=== PATIENT | male | born 1975 | race Hispanic/Latino ===

== ENCOUNTER 2018-01-30 18:05 | Inpatient (IN) | payer BC ==
[~2018-01-30] VITALS: Ht 180.3 cm; Wt 105.7 kg
[~2018-01-30 18:05] MED LIST: METFORMIN HCL500 MG PO
[2018-01-30 18:36] LABS: BASOPHILS % 0.3 % (0.0-1.0); EOSINOPHILS % 0.3 % (0.0-6.0); HEMATOCRIT 24.9 % (38.2-49.6); HEMOGLOBIN 8.8 g/dL (14.0-18.0); LYMPHOCYTES # (AUTO) 1.4 (1.0-3.2); LYMPHOCYTES % 18.7 % (18.0-39.1); MEAN CORPUSCULAR HEMOGLOBIN 30.7 pg (28-32); MEAN CORPUSCULAR HGB CONC 35.3 g/dL (31-35); MEAN CORPUSCULAR VOLUME 86.8 fL (81-99); MONOCYTES # (AUTO) 0.9 (0.2-0.8); NEUTROPHILS # (AUTO) 5.2 (2.1-6.9); NEUTROPHILS % 68.2 % (38.7-80.0); PLATELET COUNT 213 x10e3/uL (140-360); RED BLOOD COUNT 2.87 x10e6/uL (4.3-5.7); RED CELL DISTRIBUTION WIDTH 11.9 % (11.7-14.4)
[2018-01-30 18:54] LABS: ALBUMIN 3.1 g/dL (3.5-5.0); ALBUMIN/GLOBULIN RATIO 0.9 (0.8-2.0); ANION GAP 14.8 mmol/L (8-16); CALCIUM 8.9 mg/dL (8.4-10.2); CREATININE, SERUM 2.65 mg/dL (0.72-1.25); POTASSIUM 4.8 mmol/L (3.5-5.1)
--- NOTE | 2018-01-30 19:21 | Diagnostic Imaging Report ---
Foot complete CPT code: 78441 Indication: First and second digit bleeding, redness, swelling Technique: A.P., oblique and lateral views of the left foot obtained. Comparison: X-rays 05/16/2017 Findings: Calcaneus is intact and normal in morphology. The midfoot is intact with mild degenerative changes. Partial amputation of the fifth digit is stable at the head of the metatarsal. The proximal and distal phalanges of the fifth digit are present and are intact. A fracture of the base of the fifth metatarsal has healed with pseudoarthrosis. Digits 1 through 4 are intact. No erosions or periosteal new bone formation. Diffuse vascular calcifications are stable. IMPRESSION: 1. No radiographic evidence of osteomyelitis. If there is strong clinical concern for osteomyelitis, recommend further evaluation with MRI. 2. Stable postoperative changes of the fifth digit. 3. Healed fracture at the base of the fifth metatarsal with pseudoarthrosis. Signed by: Dr. Ike García MD on 01/30/2018 7:18 PM
[2018-01-30] MEDS ORDERED: DEXTROSE 50% SYRINGE 50 ML IV PRN (20:15)
[2018-01-30] MEDS ORDERED: ONDANSETRON HCL INJ 2 MG/ML VIAL IV PRN (20:15)
[2018-01-30] MEDS ORDERED: MORPHINE SULFATE 2 MG/ML SYR IV PRN (20:15)
[2018-01-30] MEDS: PIPERACILLIN/TAZO 2.25 GM 50 ML IV SCH (20:44)
[2018-01-30] MEDS: SODIUM CHLORIDE 0.9% 1000ML 1,000 ML IV SCH (20:44)
[2018-01-30] MEDS: SILVER SULFADIAZINE 50GM CREAM TOP SCH (20:45)
[2018-01-30] MEDS ORDERED: SILVER SULFADIAZINE 400GM CREAM ONE (20:48)
[2018-01-30 20:59] VITALS: BP 179/79
[2018-01-30 21:00] VITALS: BP 179/79
[2018-01-30] MEDS: INSULIN REGULAR, HUMAN 100 UNIT/1 ML 3ML VIAL SQ SCH (21:00)
[2018-01-30] MEDS: VANCOMYCIN 1GM/NS 250 ML 250 ML IV SCH (21:21)
[2018-01-31] VITALS: BP 162/81
[2018-01-31] MEDS: PIPERACILLIN/TAZO 2.25 GM 50 ML IV SCH ×5 (00:30→23:24)
[2018-01-31 04:00] VITALS: BP 149/82
[2018-01-31] MEDS: SODIUM CHLORIDE 0.9% 1000ML 1,000 ML IV SCH ×2 (05:08→12:12)
[2018-01-31 06:59] LABS: BASOPHILS % 0.4 % (0.0-1.0); EOSINOPHILS # (AUTO) 0.1 (0.0-0.4); EOSINOPHILS % 1.3 % (0.0-6.0); HEMOGLOBIN 7.3 g/dL (14.0-18.0); LYMPHOCYTES # (AUTO) 1.2 (1.0-3.2); LYMPHOCYTES % 20.8 % (18.0-39.1); MEAN CORPUSCULAR HEMOGLOBIN 30.9 pg (28-32); MEAN CORPUSCULAR HGB CONC 35.1 g/dL (31-35); MEAN CORPUSCULAR VOLUME 88.1 fL (81-99); MONOCYTES # (AUTO) 0.9 (0.2-0.8); MONOCYTES % 15.4 % (4.4-11.3); NEUTROPHILS # (AUTO) 3.4 (2.1-6.9); NEUTROPHILS % 61.6 % (38.7-80.0); PLATELET COUNT 178 x10e3/uL (140-360); RED BLOOD COUNT 2.36 x10e6/uL (4.3-5.7); RED CELL DISTRIBUTION WIDTH 11.9 % (11.7-14.4)
[2018-01-31 07:12] LABS: HEMATOCRIT 20.8 % (38.2-49.6)
[2018-01-31] MEDS: INSULIN REGULAR, HUMAN 100 UNIT/1 ML 3ML VIAL SQ SCH ×4 (07:30→21:00)
[2018-01-31 07:32] LABS: ALBUMIN 2.5 g/dL (3.5-5.0); ANION GAP 9.7 mmol/L (8-16); CALCIUM 8.3 mg/dL (8.4-10.2); CREATININE, SERUM 2.67 mg/dL (0.72-1.25); POTASSIUM 4.7 mmol/L (3.5-5.1)
[2018-01-31] MEDS ORDERED: SODIUM CHLORIDE 0.9% 250ML 250 ML IV ONE (08:00)
[2018-01-31 08:44] VITALS: BP 182/89
[2018-01-31] MEDS: SILVER SULFADIAZINE 50GM CREAM TOP SCH (09:00)
[2018-01-31] MEDS ORDERED: LISINOPRIL10 MG PO (11:37)
[2018-01-31] MEDS: LISINOPRIL 10 MG TAB PO SCH (11:55)
--- NOTE | 2018-01-31 13:52 | Consultation ---
DATE OF CONSULTATION: January 31, 2018 The patient was seen at bedside. He is here because he was at work, and he put his foot in an area of exposure to the sun. He said he did not notice that day; but when he went home at night, he noticed there was a blister on his foot. He developed a large blister to the whole dorsal aspect of the foot, encompassing digits 1 through 5. He started getting worried because he is diabetic and has a history of diabetic foot ulcers, so he came to the emergency room right away where he was admitted. PAST MEDICAL HISTORY: Diabetes mellitus, hypertension, history of anemia. PAST SURGICAL HISTORY: Left foot surgery. FAMILY HISTORY: Diabetes mellitus, hypertension. SOCIAL HISTORY: He denies any alcohol, tobacco or illicit drug use. ALLERGIES: NO KNOWN ALLERGIES. MEDICATIONS: Please see MAR. REVIEW OF SYSTEMS: Noncontributory, except for a full-thickness ulcer that began as a burn to the left aspect of the foot that encompasses digits 1, 2, 3, 4, and 5, and it extends down to the level of the mid-foot. LOWER EXTREMITY PHYSICAL EXAMINATION: Pedal pulses are palpable. Capillary refill intact at 5 seconds. There is pedal hair growth on the feet. Intrinsic minus type of foot. Protective threshold is absent. The left foot now has a full-thickness ulcer that began as a blister. The bulla was deroofed today with a #15 blade, and nonviable tissue was removed. It was now granular. It encompasses digits 1 through 5. There are localized erythema and edema noted. No streaking erythema or ascending lymphangitis. X-ray is negative for osteomyelitis. White blood count is trending down. ASSESSMENT 1. Diabetic foot ulcer that began as a burn secondary to diabetic neuropathy. 2. Small vessel peripheral vascular disease. PLAN: At this point, utilizing a #15 blade, all nonviable tissue was removed. The bulla was fully deroofed. It had already begun to the digits. The erythema and edema were localized. This did not seem to be infected at this point. I am going to recommend Xeroform to the lower extremity daily. He will offload with the use of a postop shoe. He is stable. Once he is medically stable and he is discharged home, he can follow up with me in the office, and he can probably follow up after that at the wound care center. Thank you for letting me participate in the care of this patient. Job#: [id number]
[2018-01-31] MEDS ORDERED: FLUCONAZOLE 200 MG/100 ML 100 ML IV SCH (15:00)
--- NOTE | 2018-01-31 15:36 | Consultation ---
DATE OF CONSULTATION: INFECTIOUS DISEASE CONSULTATION REASON FOR CONSULTATION: Burn in the foot. HISTORY OF PRESENT ILLNESS: This is a patient who is a very well known to me 43-year-old gentleman with history of diabetes mellitus, history of neuropathy, who comes in after he had his feet up on his car, but he has neuropathy and apparently he had burned his feet without really feeling it. The patient took his socks off and he peeled his skin, which affected all his distal third of his foot. His toes were swollen. There is erythema and edema. Patient came here. He was admitted. PAST MEDICAL HISTORY: Diabetes mellitus, hypertension, neuropathy. PAST SURGICAL HISTORY: Left foot surgery. He also has history of osteomyelitis of his foot before. ALLERGIES: NKA. SOCIAL HISTORY: There is no smoking, drug abuse, alcohol abuse. FAMILY HISTORY: Otherwise diabetes mellitus. REVIEW OF SYSTEMS: HEENT: Negative. PULMONARY: Negative. CARDIAC: Negative. : Negative. SKIN: There is no rash anywhere otherwise. PHYSICAL EXAMINATION: GENERAL: He is alert, oriented, does not seem to be in acute distress. VITALS: Stable, currently afebrile. HEENT: He does not appear icteric. NECK: Supple. CHEST: Clear. HEART: S1/S2. No S3, no S4. No murmur. ABDOMEN: Soft. Bowel sounds present. No tenderness. EXTREMITIES: No edema. The right foot there is erythema, there is edema. He underwent debridement earlier. IMPRESSION: Cellulitis in a patient who sustained a second degree burn to his right foot. Concerned about infection. There is significant edema. There is also concern about fungal infection. He is currently on vancomycin and Zosyn. I would suggest to switch him to clindamycin 600 q.8. Will follow clinically. Continue with local care. Job#: [id number] EV
[2018-01-31 20:32] VITALS: BP 189/87
[2018-01-31] MEDS ORDERED: CLONIDINE HCL 0.1 MG TAB PO PRN (21:00)
[2018-01-31] MEDS: VANCOMYCIN 1GM/NS 250 ML 250 ML IV SCH (21:15)
[2018-02-01 00:08] VITALS: BP 176/87
[2018-02-01 04:00] VITALS: BP 166/84
[2018-02-01] MEDS: PIPERACILLIN/TAZO 2.25 GM 50 ML IV SCH (05:37)
[2018-02-01 07:00] VITALS: BP 177/86
[2018-02-01 07:13] LABS: BASOPHILS % 0.5 % (0.0-1.0); EOSINOPHILS # (AUTO) 0.1 (0.0-0.4); EOSINOPHILS % 1.8 % (0.0-6.0); HEMATOCRIT 23.3 % (38.2-49.6); HEMOGLOBIN 8.3 g/dL (14.0-18.0); LYMPHOCYTES # (AUTO) 1.2 (1.0-3.2); LYMPHOCYTES % 19.7 % (18.0-39.1); MEAN CORPUSCULAR HEMOGLOBIN 31.3 pg (28-32); MEAN CORPUSCULAR HGB CONC 35.6 g/dL (31-35); MEAN CORPUSCULAR VOLUME 87.9 fL (81-99); MONOCYTES % 15.8 % (4.4-11.3); NEUTROPHILS # (AUTO) 3.7 (2.1-6.9); NEUTROPHILS % 61.5 % (38.7-80.0); PLATELET COUNT 180 x10e3/uL (140-360); RED BLOOD COUNT 2.65 x10e6/uL (4.3-5.7)
[2018-02-01 07:41] LABS: ALBUMIN 2.5 g/dL (3.5-5.0); ALBUMIN/GLOBULIN RATIO 0.9 (0.8-2.0); ANION GAP 11.7 mmol/L (8-16); CALCIUM 8.6 mg/dL (8.4-10.2); CREATININE, SERUM 2.66 mg/dL (0.72-1.25); POTASSIUM 4.7 mmol/L (3.5-5.1)
[2018-02-01 07:43] VITALS: BP 177/86
[2018-02-01] MEDS: LISINOPRIL 10 MG TAB PO SCH (08:20)
[2018-02-01] MEDS: INSULIN REGULAR, HUMAN 100 UNIT/1 ML 3ML VIAL SQ SCH (08:23)
[2018-02-01] MEDS ORDERED: CLEOCIN HCL150 MG PO (09:21)
== END 2018-02-01 11:05 | disposition home or self-care (01) | DRG 603 ==
LOC: ER 18:05 → ERHOLD 20:49 → MED/SURG2 20:52
PROVIDERS: ADMIT Internal Medicine; ATTEND Internal Medicine
PROC: 0HDMXZZ Extraction of Right Foot Skin, External Approach (ICD-10-PCS; principal; 2018-01-31)
DX: L03.116 Cellulitis of left lower limb (principal); E11.22 Type 2 diabetes mellitus with diabetic chronic kidney disease; I12.9 Hypertensive chronic kidney disease with stage 1 through stage 4 chronic kidney disease, or unspecified chronic kidney disease; E78.5 Hyperlipidemia, unspecified; D64.9 Anemia, unspecified; E11.42 Type 2 diabetes mellitus with diabetic polyneuropathy; E11.621 Type 2 diabetes mellitus with foot ulcer; L55.1 Sunburn of second degree; N18.3 Chronic kidney disease, stage 3 (moderate)
CPT/HCPCS: 36415; 36430; 80053; 82948; 83605; 85025; 86850; 86900; 86920; 87040; 99284; J1450; J2543; J3370; J7030; J7050; P9016

== ENCOUNTER → 2018-02-08 | Outpatient (CLI) | payer BC ==
[~2018-02-08] MED LIST changes: +CLEOCIN HCL150 MG PO; +LISINOPRIL10 MG PO; +MINERAL OIL/PETROLAT/GLYCERI 6OZ BTL ONE
== END ==
LOC: EDSEX → WCC 12:44
PROVIDERS: ATTEND Podiatrist Foot & Ankle Surgery
DX: E11.621 Type 2 diabetes mellitus with foot ulcer (principal); M86.172 Other acute osteomyelitis, left ankle and foot; L97.529 Non-pressure chronic ulcer of other part of left foot with unspecified severity; I10 Essential (primary) hypertension; Z01.810 Encounter for preprocedural cardiovascular examination; Z01.811 Encounter for preprocedural respiratory examination
CPT/HCPCS: 36415; 82948

== ENCOUNTER → 2018-02-10 | Outpatient (CLI) | payer BC ==
[~2018-02-10] MED LIST changes: -MINERAL OIL/PETROLAT/GLYCERI 6OZ BTL ONE
== END ==
LOC: EDSEX → WCC 12:33
PROVIDERS: ATTEND Internal Medicine Infectious Disease
DX: E11.621 Type 2 diabetes mellitus with foot ulcer (principal); M86.172 Other acute osteomyelitis, left ankle and foot; L97.529 Non-pressure chronic ulcer of other part of left foot with unspecified severity; I10 Essential (primary) hypertension; Z01.810 Encounter for preprocedural cardiovascular examination; Z01.811 Encounter for preprocedural respiratory examination
CPT/HCPCS: 83036

== ENCOUNTER → 2018-02-13 | Outpatient (CLI) | payer BC ==
--- NOTE | 2018-02-13 16:03 | Diagnostic Imaging Report ---
PROCEDURE: Frontal and lateral views of the chest. COMPARISON: 08/27/16 INDICATIONS: PRE-OPERATIVE CHEST X-RAY FOR HYPERBARIC OXYGEN TREATMENTS FINDINGS: Lines/tubes: None. Lungs: The lungs are well inflated and clear. There is no evidence of pneumonia or pulmonary edema. Pleura: There is no pleural effusion or pneumothorax. Heart and mediastinum: The heart and the mediastinum are normal. Bones: No acute bony abnormality. IMPRESSION: 1. No acute cardiopulmonary disease. Dictated by: Natan Garcia M.D. on 02/13/2018 at 16:07 Electronically approved by: Natan Garcia M.D. on 02/13/2018 at 16:07
== END ==
LOC: WCC 12:55 → EDSEX 12:55
PROVIDERS: ATTEND Internal Medicine Infectious Disease
DX: E11.621 Type 2 diabetes mellitus with foot ulcer (principal); M86.172 Other acute osteomyelitis, left ankle and foot; L97.529 Non-pressure chronic ulcer of other part of left foot with unspecified severity; I10 Essential (primary) hypertension; Z01.810 Encounter for preprocedural cardiovascular examination; Z01.811 Encounter for preprocedural respiratory examination
CPT/HCPCS: 71046; 93005

== ENCOUNTER → 2018-02-14 | Outpatient (CLI) | payer BC | LOC: WCC 14:15 | PROVIDERS: ATTEND Podiatrist Foot & Ankle Surgery | DX: E11.621 Type 2 diabetes mellitus with foot ulcer (principal); M86.172 Other acute osteomyelitis, left ankle and foot; L97.529 Non-pressure chronic ulcer of other part of left foot with unspecified severity; I10 Essential (primary) hypertension; Z01.810 Encounter for preprocedural cardiovascular examination; Z01.811 Encounter for preprocedural respiratory examination ==

== ENCOUNTER → 2018-02-15 | Outpatient (CLI) | payer BC | LOC: WCC 14:37 | PROVIDERS: ATTEND Podiatrist Foot & Ankle Surgery | DX: E11.621 Type 2 diabetes mellitus with foot ulcer (principal); M86.172 Other acute osteomyelitis, left ankle and foot; L97.529 Non-pressure chronic ulcer of other part of left foot with unspecified severity; Z01.810 Encounter for preprocedural cardiovascular examination; Z01.811 Encounter for preprocedural respiratory examination ==

== ENCOUNTER → 2018-02-17 | Outpatient (CLI) | payer BC | LOC: EDSEX → WCC 15:15 | PROVIDERS: ATTEND Podiatrist Foot & Ankle Surgery | DX: E11.621 Type 2 diabetes mellitus with foot ulcer (principal); M86.172 Other acute osteomyelitis, left ankle and foot; L97.529 Non-pressure chronic ulcer of other part of left foot with unspecified severity; I10 Essential (primary) hypertension; Z01.810 Encounter for preprocedural cardiovascular examination; Z01.811 Encounter for preprocedural respiratory examination ==

== ENCOUNTER → 2018-02-20 | Outpatient (CLI) | payer BC | LOC: WCC 10:22 | PROVIDERS: ATTEND Podiatrist Foot & Ankle Surgery | DX: E11.621 Type 2 diabetes mellitus with foot ulcer (principal); M86.172 Other acute osteomyelitis, left ankle and foot; L97.529 Non-pressure chronic ulcer of other part of left foot with unspecified severity; I10 Essential (primary) hypertension; Z01.810 Encounter for preprocedural cardiovascular examination; Z01.811 Encounter for preprocedural respiratory examination ==

== ENCOUNTER → 2018-02-22 | Outpatient (CLI) | payer BC | LOC: EDSEX → WCC 15:05 | PROVIDERS: ATTEND Podiatrist Foot & Ankle Surgery | DX: E11.621 Type 2 diabetes mellitus with foot ulcer (principal); M86.172 Other acute osteomyelitis, left ankle and foot; L97.529 Non-pressure chronic ulcer of other part of left foot with unspecified severity; I10 Essential (primary) hypertension; Z01.810 Encounter for preprocedural cardiovascular examination; Z01.811 Encounter for preprocedural respiratory examination ==

== ENCOUNTER → 2018-02-23 | Outpatient (CLI) | payer BC | LOC: WCC 10:39 | PROVIDERS: ATTEND Family Medicine Adult Medicine | DX: E11.621 Type 2 diabetes mellitus with foot ulcer (principal); M86.172 Other acute osteomyelitis, left ankle and foot; L97.529 Non-pressure chronic ulcer of other part of left foot with unspecified severity; I10 Essential (primary) hypertension; Z01.810 Encounter for preprocedural cardiovascular examination; Z01.811 Encounter for preprocedural respiratory examination | CPT/HCPCS: 97602; G0277 ==

== ENCOUNTER → 2018-02-24 | Outpatient (CLI) | payer BC | LOC: EDSEX → WCC 13:08 | PROVIDERS: ATTEND Podiatrist Foot & Ankle Surgery | DX: E11.621 Type 2 diabetes mellitus with foot ulcer (principal); M86.172 Other acute osteomyelitis, left ankle and foot; L97.529 Non-pressure chronic ulcer of other part of left foot with unspecified severity; I10 Essential (primary) hypertension; Z01.810 Encounter for preprocedural cardiovascular examination; Z01.811 Encounter for preprocedural respiratory examination ==

== ENCOUNTER → 2018-02-27 | Outpatient (CLI) | payer BC | LOC: EDSEX → WCC 11:52 | PROVIDERS: ATTEND Podiatrist Foot & Ankle Surgery | DX: E11.621 Type 2 diabetes mellitus with foot ulcer (principal); M86.172 Other acute osteomyelitis, left ankle and foot; L97.529 Non-pressure chronic ulcer of other part of left foot with unspecified severity; I10 Essential (primary) hypertension; Z01.810 Encounter for preprocedural cardiovascular examination; Z01.811 Encounter for preprocedural respiratory examination | CPT/HCPCS: 97602; G0277 ==

== ENCOUNTER → 2018-02-28 | Outpatient (CLI) | payer BC | LOC: WCC 10:05 | PROVIDERS: ATTEND Podiatrist Foot & Ankle Surgery | DX: E11.621 Type 2 diabetes mellitus with foot ulcer (principal); M86.172 Other acute osteomyelitis, left ankle and foot; L97.529 Non-pressure chronic ulcer of other part of left foot with unspecified severity; I10 Essential (primary) hypertension; Z01.810 Encounter for preprocedural cardiovascular examination; Z01.811 Encounter for preprocedural respiratory examination | CPT/HCPCS: 97602; G0277 ==

== ENCOUNTER → 2018-03-01 | Outpatient (CLI) | payer BC ==
[~2018-03-01] MED LIST changes: +COLLAGENASE OINTMENT 30 GM TUBE ONE
== END ==
LOC: EDSEX → WCC 15:25
PROVIDERS: ATTEND Podiatrist Foot & Ankle Surgery
DX: E11.621 Type 2 diabetes mellitus with foot ulcer (principal); M86.172 Other acute osteomyelitis, left ankle and foot; L97.529 Non-pressure chronic ulcer of other part of left foot with unspecified severity; I10 Essential (primary) hypertension; Z01.810 Encounter for preprocedural cardiovascular examination; Z01.811 Encounter for preprocedural respiratory examination
CPT/HCPCS: 11042; 11045; 36415; 82948; G0277

== ENCOUNTER → 2018-03-02 | Outpatient (CLI) | payer BC ==
[~2018-03-02] MED LIST changes: -COLLAGENASE OINTMENT 30 GM TUBE ONE
== END ==
LOC: EDSEX → WCC 14:01
PROVIDERS: ATTEND Podiatrist Foot & Ankle Surgery
DX: E11.621 Type 2 diabetes mellitus with foot ulcer (principal); L97.529 Non-pressure chronic ulcer of other part of left foot with unspecified severity; M86.172 Other acute osteomyelitis, left ankle and foot; I10 Essential (primary) hypertension; Z01.810 Encounter for preprocedural cardiovascular examination; Z01.811 Encounter for preprocedural respiratory examination

== ENCOUNTER → 2018-03-03 | Outpatient (CLI) | payer BC | LOC: EDSEX → WCC 11:53 | PROVIDERS: ATTEND Podiatrist Foot & Ankle Surgery | DX: E11.621 Type 2 diabetes mellitus with foot ulcer (principal); M86.172 Other acute osteomyelitis, left ankle and foot; L97.529 Non-pressure chronic ulcer of other part of left foot with unspecified severity; I10 Essential (primary) hypertension; Z01.810 Encounter for preprocedural cardiovascular examination; Z01.811 Encounter for preprocedural respiratory examination | CPT/HCPCS: 97602; G0277 ==

== ENCOUNTER → 2018-03-06 | Outpatient (CLI) | payer BC | LOC: EDSEX → WCC 14:41 | PROVIDERS: ATTEND Podiatrist Foot & Ankle Surgery | DX: E11.621 Type 2 diabetes mellitus with foot ulcer (principal); E11.65 Type 2 diabetes mellitus with hyperglycemia; E11.40 Type 2 diabetes mellitus with diabetic neuropathy, unspecified; L97.511 Non-pressure chronic ulcer of other part of right foot limited to breakdown of skin; S90.421A Blister (nonthermal), right great toe, initial encounter; R60.0 Localized edema; L97.428 Non-pressure chronic ulcer of left heel and midfoot with other specified severity; M81.0 Age-related osteoporosis without current pathological fracture; I87.2 Venous insufficiency (chronic) (peripheral); I89.0 Lymphedema, not elsewhere classified; I73.89 Other specified peripheral vascular diseases; I48.2 Chronic atrial fibrillation; I10 Essential (primary) hypertension; E66.01 Morbid (severe) obesity due to excess calories ==

== ENCOUNTER → 2018-03-07 | Outpatient (CLI) | payer BC | LOC: EDSEX → WCC 10:30 | PROVIDERS: ATTEND Podiatrist Foot & Ankle Surgery | DX: E11.621 Type 2 diabetes mellitus with foot ulcer (principal); M86.172 Other acute osteomyelitis, left ankle and foot; L97.529 Non-pressure chronic ulcer of other part of left foot with unspecified severity; I10 Essential (primary) hypertension; Z01.810 Encounter for preprocedural cardiovascular examination; Z01.811 Encounter for preprocedural respiratory examination | CPT/HCPCS: 97602; G0277 ==

== ENCOUNTER → 2018-03-08 | Outpatient (CLI) | payer BC | LOC: WCC 10:49 | PROVIDERS: ATTEND Podiatrist Foot & Ankle Surgery | DX: E11.621 Type 2 diabetes mellitus with foot ulcer (principal); M86.172 Other acute osteomyelitis, left ankle and foot; L97.529 Non-pressure chronic ulcer of other part of left foot with unspecified severity; I10 Essential (primary) hypertension; Z01.810 Encounter for preprocedural cardiovascular examination; Z01.811 Encounter for preprocedural respiratory examination ==

== ENCOUNTER → 2018-03-09 | Outpatient (CLI) | payer BC | LOC: WCC 09:37 | PROVIDERS: ATTEND Family Medicine Adult Medicine | DX: E11.621 Type 2 diabetes mellitus with foot ulcer (principal); M86.172 Other acute osteomyelitis, left ankle and foot; L97.529 Non-pressure chronic ulcer of other part of left foot with unspecified severity; I10 Essential (primary) hypertension; Z01.810 Encounter for preprocedural cardiovascular examination; Z01.811 Encounter for preprocedural respiratory examination | CPT/HCPCS: 97602; G0277 ==

== ENCOUNTER → 2018-03-10 | Outpatient (CLI) | payer BC | LOC: WCC 13:37 | PROVIDERS: ATTEND Podiatrist Foot & Ankle Surgery | DX: E11.621 Type 2 diabetes mellitus with foot ulcer (principal); L97.529 Non-pressure chronic ulcer of other part of left foot with unspecified severity; M86.172 Other acute osteomyelitis, left ankle and foot; I10 Essential (primary) hypertension; Z01.810 Encounter for preprocedural cardiovascular examination; Z01.811 Encounter for preprocedural respiratory examination | CPT/HCPCS: 97602; G0277 ==

== ENCOUNTER → 2018-03-13 | Outpatient (CLI) | payer BC | LOC: WCC 11:52 | PROVIDERS: ATTEND Podiatrist Foot & Ankle Surgery | DX: E11.621 Type 2 diabetes mellitus with foot ulcer (principal); M86.172 Other acute osteomyelitis, left ankle and foot; L97.529 Non-pressure chronic ulcer of other part of left foot with unspecified severity; I10 Essential (primary) hypertension; Z01.810 Encounter for preprocedural cardiovascular examination; Z01.811 Encounter for preprocedural respiratory examination | CPT/HCPCS: 99212; G0277 ==

== ENCOUNTER → 2018-03-15 | Outpatient (CLI) | payer BC | LOC: WCC 13:42 | PROVIDERS: ATTEND Family Medicine Adult Medicine | DX: E11.621 Type 2 diabetes mellitus with foot ulcer (principal); M86.172 Other acute osteomyelitis, left ankle and foot; L97.529 Non-pressure chronic ulcer of other part of left foot with unspecified severity; I10 Essential (primary) hypertension; Z01.810 Encounter for preprocedural cardiovascular examination; Z01.811 Encounter for preprocedural respiratory examination ==

== ENCOUNTER → 2018-03-16 | Outpatient (CLI) | payer BC | LOC: WCC 11:12 | PROVIDERS: ATTEND Family Medicine Adult Medicine | DX: E11.621 Type 2 diabetes mellitus with foot ulcer (principal); M86.172 Other acute osteomyelitis, left ankle and foot; L97.529 Non-pressure chronic ulcer of other part of left foot with unspecified severity; I10 Essential (primary) hypertension; Z01.810 Encounter for preprocedural cardiovascular examination; Z01.811 Encounter for preprocedural respiratory examination | CPT/HCPCS: 97602; G0277 ==

== ENCOUNTER → 2018-03-17 | Outpatient (CLI) | payer BC | LOC: WCC 13:26 | PROVIDERS: ATTEND Internal Medicine Infectious Disease | DX: E11.621 Type 2 diabetes mellitus with foot ulcer (principal); M86.172 Other acute osteomyelitis, left ankle and foot; L97.529 Non-pressure chronic ulcer of other part of left foot with unspecified severity; I10 Essential (primary) hypertension; Z01.810 Encounter for preprocedural cardiovascular examination; Z01.811 Encounter for preprocedural respiratory examination | CPT/HCPCS: 97602; G0277 ==

== ENCOUNTER → 2018-03-20 | Outpatient (CLI) | payer BC | LOC: WCC 08:14 | PROVIDERS: ATTEND Plastic Surgery | DX: E11.621 Type 2 diabetes mellitus with foot ulcer (principal); M86.172 Other acute osteomyelitis, left ankle and foot; L97.529 Non-pressure chronic ulcer of other part of left foot with unspecified severity; I10 Essential (primary) hypertension; Z01.810 Encounter for preprocedural cardiovascular examination; Z01.811 Encounter for preprocedural respiratory examination | CPT/HCPCS: 97602; G0277 ==

== ENCOUNTER → 2018-03-21 | Outpatient (CLI) | payer BC | LOC: WCC 09:34 | PROVIDERS: ATTEND Podiatrist Foot & Ankle Surgery | DX: E11.621 Type 2 diabetes mellitus with foot ulcer (principal); M86.172 Other acute osteomyelitis, left ankle and foot; L97.529 Non-pressure chronic ulcer of other part of left foot with unspecified severity; I10 Essential (primary) hypertension; Z01.810 Encounter for preprocedural cardiovascular examination; Z01.811 Encounter for preprocedural respiratory examination ==

== ENCOUNTER → 2018-03-22 | Outpatient (CLI) | payer BC | LOC: WCC 09:36 | PROVIDERS: ATTEND Family Medicine Adult Medicine | DX: E11.621 Type 2 diabetes mellitus with foot ulcer (principal); M86.172 Other acute osteomyelitis, left ankle and foot; L97.529 Non-pressure chronic ulcer of other part of left foot with unspecified severity; I10 Essential (primary) hypertension; Z01.810 Encounter for preprocedural cardiovascular examination; Z01.811 Encounter for preprocedural respiratory examination | CPT/HCPCS: 97602; G0277 ==

== ENCOUNTER → 2018-03-23 | Outpatient (CLI) | payer BC | LOC: WCC 09:36 | PROVIDERS: ATTEND Family Medicine Adult Medicine | DX: E11.621 Type 2 diabetes mellitus with foot ulcer (principal); M86.172 Other acute osteomyelitis, left ankle and foot; L97.529 Non-pressure chronic ulcer of other part of left foot with unspecified severity; I10 Essential (primary) hypertension; Z01.810 Encounter for preprocedural cardiovascular examination; Z01.811 Encounter for preprocedural respiratory examination | CPT/HCPCS: 97602; G0277 ==

== ENCOUNTER → 2018-03-24 | Outpatient (CLI) | payer BC | LOC: WCC 15:58 | PROVIDERS: ATTEND Podiatrist Foot & Ankle Surgery | DX: E11.621 Type 2 diabetes mellitus with foot ulcer (principal); M86.172 Other acute osteomyelitis, left ankle and foot; L97.529 Non-pressure chronic ulcer of other part of left foot with unspecified severity; I10 Essential (primary) hypertension; Z01.810 Encounter for preprocedural cardiovascular examination; Z01.811 Encounter for preprocedural respiratory examination ==

== ENCOUNTER → 2018-03-24 | Outpatient (CLI) | payer BC | LOC: WCC 12:31 | PROVIDERS: ATTEND Podiatrist Foot & Ankle Surgery | DX: E11.621 Type 2 diabetes mellitus with foot ulcer (principal); M86.172 Other acute osteomyelitis, left ankle and foot; L97.529 Non-pressure chronic ulcer of other part of left foot with unspecified severity; I10 Essential (primary) hypertension; Z01.810 Encounter for preprocedural cardiovascular examination; Z01.811 Encounter for preprocedural respiratory examination ==

== ENCOUNTER → 2018-03-27 | Outpatient (CLI) | payer BC | LOC: WCC 13:39 | PROVIDERS: ATTEND Podiatrist Foot & Ankle Surgery | DX: E11.621 Type 2 diabetes mellitus with foot ulcer (principal); L97.529 Non-pressure chronic ulcer of other part of left foot with unspecified severity; M86.172 Other acute osteomyelitis, left ankle and foot; I10 Essential (primary) hypertension; Z01.810 Encounter for preprocedural cardiovascular examination; Z01.811 Encounter for preprocedural respiratory examination ==

== ENCOUNTER → 2018-03-28 | Day surgery (SDC) | payer BC ==
[~2018-03-28] MED LIST changes: +BACITRACIN 50,000 UNIT VIAL ONE; +BUPIVACAINE HCL 0.5% INJ 30 ML VIAL INJ ONE; +CEFAZOLIN SOD 2 GM/D5W 50ML 50 ML IV ONE; +DESFLURANE 240 ML BTL INH ONE; +DEXAMETHASONE SOD PHOS INJ 4 MG/ML VIAL ONE; +FENTANYL CITRATE/PF 100MCG/2 ML INJ ONE; +KETOROLAC TROMETHAMINE 30 MG/ML VIAL ONE; +LABETALOL HCL 20 ML ONE; +LIDOCAINE HCL 2% LOCAL INJ 5 ML SDV VIAL INJ ONE; +METOCLOPRAMIDE HCL 10 MG/2ML VIAL ONE; +MIDAZOLAM HCL 2 MG/2 ML VIAL ONE; +NEOSTIGMINE 1 MG/ML 10ML VIAL ONE; +ONDANSETRON HCL INJ 2 MG/ML VIAL ONE; +PROPOFOL IV EMULSION 10 MG/ML 20 ML VIAL ONE
[2018-03-28 07:17] LABS: ANION GAP 13.7 mmol/L (8-16); CALCIUM 8.9 mg/dL (8.4-10.2); CREATININE, SERUM 2.6 mg/dL (0.72-1.25); POTASSIUM 4.7 mmol/L (3.5-5.1)
--- NOTE | 2018-03-28 11:19 | Operative Report ---
DATE OF PROCEDURE: March 28, 2018 PREOPERATIVE DIAGNOSES 1. Ulcer grade IV, left foot. 2. Diabetes with neuropathy. 3. Gangrene, left foot. 4. Osteomyelitis, left foot. POSTOPERATIVE DIAGNOSES 1. Ulcer grade IV, left foot. 2. Diabetes with neuropathy. 3. Gangrene, left foot. 4. Osteomyelitis, left foot. PROCEDURES PERFORMED 1. Excisional debridement to include bone, left foot. 2. Bone biopsy, 4th digit with distal amputation of the phalanx, left foot. 3. Application of an Integra mesh bilayer wound graft, lot #[id number], expiration 06/30/2019 and this is from [facility]. PROCEDURE IN DETAIL: Under mild sedation, the patient was brought to the operating room and placed on the operating room table in supine position. Following IV sedation, anesthesia was obtained by general anesthetic. At this point, the left foot was scrubbed, prepped, and draped in the usual aseptic manner. Leg was lowered to the table. Attention was directed to the gangrenous aspect of digits [address] the midfoot extending mostly plantarly to around the diaphysis of the phalanx. Utilizing excisional debridement with a 15 blade and a bone rongeur, the proximal aspect of all the nonviable tissue was removed down to a clean viable bed with 100% granular tissue after debridement. After debridement, pressure irrigation with bacitracin was performed. Before pressure irrigation with bacitracin was performed, the 4th digit was noted to be osteomyelitic. A bone biopsy was taken. The distal aspect of the 4th digit was removed since it already appeared to be nonviable. Distally, there is some dry gangrene at the distal tuft including the proximal and all the distal phalanx of digits 2 through 5. On the granular tissue, an Integra graft was applied. It was secured with skin marely. A wound VAC will be applied. At this point, patient is noted that this is limb salvage to this lower extremity, he is going to need serial debridements and more surgeries down the line and he is aware of this. At this point, he is to be nonweightbearing. He is going to continue to follow up in wound care. He is going to continue to follow hyperbaric oxygen treatment. He is currently on IV antibiotic by infectious disease. He is offloading with the use of crutches. He will continue to follow with me in wound care. Job#: [id number] SKI
[2018-03-28 11:25] VITALS: BP 151/80
--- OUTSIDE RECORDS SUMMARY | 2018-05-04 04:36 | XMS REPORT | Continuity of Care Document ---
Author Author [facility] Organization [facility] Address [address] [place] [address] Phone Unavailable Care Team Providers Care Customer Account Manager Name Role Phone IKE LEWIS MD PCP Insurance Providers Guarantor Deisy Harman Address [address] [address] Email [email or web address] [facility] Policy Number [id number] Subscriber's Name Deisy Harman Relationship 18 Self / Same As Patient Group Number [id number] Group Name [employer]- CLASS 3 Effective Date 16 Advance Directives Directive Response Recorded Date/Time Does the patient have an advance directive? No 01/30/18 9:00pm If yes, is advance directive on file with [facility]? No 01/30/18 9:00pm If not on file with [facility] will patient provide a copy? No 01/30/18 9:00pm Do you have a Directive to Physician? No 01/30/18 7:37pm Do you have a Medical Power of [employer]? No 01/30/18 7:37pm Do you have an out of hospital Do Not Resuscitate Order? No 01/30/18 7:37pm Do you have any special needs we should be aware of? No 01/30/18 7:37pm Do you have a support person here with you today? Yes 01/30/18 7:37pm Did patient receive Notice of Privacy Practices? Yes 01/30/18 7:37pm Did patient receive patient rights and responsibilities? Yes 01/30/18 7:37pm Problems Medical Problem Onset Date Status Anemia Unknown Medications Current Home Medications Medication Dose Units Route Directions Days Qty Instructions Start Date Clindamycin Hcl (Cleocin Hcl) 150 Mg Capsule 300 Mg Oral Three Times A Day 45 Cap Lisinopril 10 Mg Tablet 10 Mg Oral Daily 30 Tab Metformin Hcl 500 Mg Tablet 500 Mg Oral Twice A Day 60 Tab Social History Social History Problem Response Recorded Date/Time Onset Date Status Hx Psychiatric Problems No 01/30/2018 9:00pm Not Applicable Not Applicable Hx Eating Disorder No 01/30/2018 9:00pm Not Applicable Not Applicable Hx Substance Use Disorder No 01/30/2018 9:00pm Not Applicable Not Applicable Hx Depression No 01/30/2018 9:00pm Not Applicable Not Applicable Hx Alcohol Use No 01/30/2018 9:00pm Not Applicable Not Applicable Hx Substance Use Treatment No 01/30/2018 9:00pm Not Applicable Not Applicable Hx Physical Abuse No 01/30/2018 9:00pm Not Applicable Not Applicable Smoking Status Start Date Stop Date Never Smoker Hospital Discharge Instructions No hospital discharge instruction information available. Plan of Care Discharge Date 02/01/18 11:05am Disposition HOME, SELF-CARE Instructions/Education Provided Cellulitis Prescriptions See Medication Section Referrals PETER MYLES (Nephrology) Entered Date: 02/01/2018 9:24am Address: [address] [place] [address] [place] [address] IKE LEWIS MD (Internal Medicine) Entered Date: 02/01/2018 9:26am Address: [address] [place] [address] [place] [address] Note: follow up in 2-3 weeks FARRUKH VILLALPANDO DPM (Podiatry) Entered Date: 02/01/2018 9:30am Address: [facility] [address] [place] [address] Additional Instructions/Education Cleocin 300mg by mouth three times daily x 15days. follow up with in 2-3 weeks. referral for Nephrology- , follow up outpatient. Functional Status No functional status information available. Allergies, Adverse Reactions, Alerts No known allergies. Immunizations No immunization information available. Vital Signs Acute Vital Signs Vital Response Date/Time Temperature (Fahrenheit) 98.7 degrees F (97.6 - 99.5) 02/01/2018 7:43am Pulse Pulse Rate (adult) 74 bpm (60 - 90) 02/01/2018 7:43am Respiratory Rate 18 bpm (12 - 24) 02/01/2018 7:43am Blood Pressure 177/86 mm Hg 02/01/2018 7:43am Height 5 ft 11 in 01/30/2018 6:08pm Weight 233 lb 02/01/2018 7:44am Body Mass Index 32.5 kg/m^2 02/01/2018 7:44am Results Laboratory Results Test Name Result Units Flags Reference Collection Date/Time Result Date/ Time Comments Hemoglobin A1c Percent 7.0 % 4.0-7.0 05/17/2017 11:40am 05/17/2017 12: 10pm Random Vancomycin Level 4.7 ug/mL 05/18/2017 4:13pm 05/18/2017 4: 39pm White Blood Count 6.08 x10e3/uL 4.8-10.8 02/01/2018 7:07am 02/01/2018 7 :20am Red Blood Count 2.65 x10e6/uL L 4.3-5.7 02/01/2018 7:07am 02/01/2018 7: 20am Hemoglobin 8.3 g/dL L 14.0-18.0 02/01/2018 7:07am 02/01/2018 7:20am Hematocrit 23.3 % L 38.2-49.6 02/01/2018 7:07am 02/01/2018 7:20am Mean Corpuscular Volume 87.9 fL 81-99 02/01/2018 7:07am 02/01/2018 7: 20am Mean Corpuscular Hemoglobin 31.3 pg 28-32 02/01/2018 7:02/01/2018 7:20am Mean Corpuscular Hemoglobin Concent 35.6 g/dL H 31-35 02/01/2018 7:02/01/2018 7:20am Red Cell Distribution Width 12.0 % 11.7-14.4 02/01/2018 7:2017 7:20am Platelet Count 180 x10e3/uL 140-360 02/01/2018 7:02/01/2018 7: 20am Neutrophils (%) (Auto) 61.5 % 38.7-80.0 02/01/2018 7:02/01/2018 7: 20am Lymphocytes (%) (Auto) 19.7 % 18.0-39.1 02/01/2018 7:02/01/2018 7: 20am Monocytes (%) (Auto) 15.8 % H 4.4-11.3 02/01/2018 7:02/01/2018 7: 20am Eosinophils (%) (Auto) 1.8 % 0.0-6.0 02/01/2018 7:02/01/2018 7: 20am Basophils (%) (Auto) 0.5 % 0.0-1.0 02/01/2018 7:02/01/2018 7:20am IM GRANULOCYTES % 0.7 % 0.0-1.0 02/01/2018 7:02/01/2018 7:20am Neutrophils # (Auto) 3.7 2.1-6.9 02/01/2018 7:02/01/2018 7:20am Lymphocytes # (Auto) 1.2 1.0-3.2 02/01/2018 7:02/01/2018 7:20am Monocytes # (Auto) 1.0 H 0.2-0.8 02/01/2018 7:02/01/2018 7:20am Eosinophils # (Auto) 0.1 0.0-0.4 02/01/2018 7:02/01/2018 7:20am Basophils # (Auto) 0.0 0.0-0.1 02/01/2018 7:02/01/2018 7:20am Absolute Immature Granulocyte (auto 0.04 x10e3/uL 0-0.1 02/01/2018 7: 02/01/2018 7:20am Sodium Level 138 mmol/L 136-145 02/01/2018 7:02/01/2018 7:46am Potassium Level 4.7 mmol/L 3.5-5.1 02/01/2018 7:02/01/2018 7:46am Chloride Level 109 mmol/L H 98-107 02/01/2018 7:02/01/2018 7:46am Carbon Dioxide Level 22 mmol/L 22-29 02/01/2018 7:02/01/2018 7: 46am Anion Gap 11.7 mmol/L 8-16 02/01/2018 7:02/01/2018 7:46am Blood Urea Nitrogen 35 mg/dL H 7-02/01/2018 7:02/01/2018 7:46am Creatinine 2.66 mg/dL H 0.72-1.25 02/01/2018 7:02/01/2018 7:46am BUN/Creatinine Ratio 13 6-02/01/2018 7:02/01/2018 7:46am Estimat Glomerular Filtration Rate 26 ML/MIN L 60- 02/01/2018 7:10/2017 7:46am Ranges were taken from the National Kidney Disease Education Program and the National Kidney Foundation literature. Reference ranges: 60 or greater: Normal 16-59 (for 3 consecutive months): Chronic kidney disease 15 or less: Kidney failure Glucose Level 196 mg/dL H 74-118 02/01/2018 7:02/01/2018 7:46am Calcium Level 8.6 mg/dL 8.4-10.2 02/01/2018 7:02/01/2018 7:46am Bedside Glucose 186 mg/dL H 70-120 02/01/2018 7:12am 02/01/2018 7:40am Meter ID: [id number] Lactic Acid Level 6.1 MG/DL 4.5-19.8 01/30/2018 6:25pm 01/30/2018 6: 51pm Total Bilirubin 0.6 mg/dL 0.2-1.2 02/01/2018 7:0702/01/2018 7:46am Aspartate Amino Transf (AST/SGOT) 11 IU/L 5-34 02/01/2018 7:07am 2017 7:46am Alanine Aminotransferase (ALT/SGPT) 11 IU/L 0-55 02/01/2018 7:07am 10/2017 7:46am Total Protein 5.4 g/dL L 6.5-8.1 02/01/2018 7:07am 02/01/2018 7:46am Albumin 2.5 g/dL L 3.5-5.0 02/01/2018 7:07am 02/01/2018 7:46am Globulin 2.9 g/dL 2.3-3.5 02/01/2018 7:07am 02/01/2018 7:46am Albumin/Globulin Ratio 0.9 0.8-2.0 02/01/2018 7:07am 02/01/2018 7: 46am Alkaline Phosphatase 57 IU/L 40-150 02/01/2018 7:07am 02/01/2018 7: 46am Microbiology Results Procedure Source Organism/Result Collection Date/Time Result Date/Time Result Status Wound Culture Foot, Left KETAN PARAPSILOSIS 05/19/2017 10:00am 2016 8:02am Final STAPHYLOCOCCUS SP COAG NEG 05/19/2017 10:00am 05/24/2017 8:02am Final STREP AGALACTIAE GROUP B 05/19/2017 10:00am 05/24/2017 8:02am Final Blood Culture Blood NO GROWTH AFTER 24 HOURS 01/30/2018 6:25pm 01/31/2018 6:40pm Preliminary Procedures Procedure Status Date Provider(s) EXCISION OF LEFT METATARSAL, OPEN APPROACH Completed 05/19/17 AFRRUKH VILLALPANDO DPM TRANSFUSE NONAUT RED BLOOD CELLS IN PERIPH VEIN, PERC Completed 05/16/17 FARRUKH VILLALPANDO DPM Encounters Encounter Location Arrival/Admit Date Discharge/Depart Date Attending Provider Discharged Inpatient [facility] 01/30/18 8:49pm 02/01/18 11:05am IKE LEWIS MD Discharged Inpatient [facility] 05/16/17 5:29pm 05/24/17 6:15pm IKE LEWIS MD
== END ==
LOC: OR 06:12
PROVIDERS: ATTEND Podiatrist Foot & Ankle Surgery
DX: E11.621 Type 2 diabetes mellitus with foot ulcer (principal); L97.529 Non-pressure chronic ulcer of other part of left foot with unspecified severity; E11.52 Type 2 diabetes mellitus with diabetic peripheral angiopathy with gangrene; I96 Gangrene, not elsewhere classified; E11.69 Type 2 diabetes mellitus with other specified complication; M86.8X7 Other osteomyelitis, ankle and foot; E11.40 Type 2 diabetes mellitus with diabetic neuropathy, unspecified; E11.22 Type 2 diabetes mellitus with diabetic chronic kidney disease; I12.9 Hypertensive chronic kidney disease with stage 1 through stage 4 chronic kidney disease, or unspecified chronic kidney disease; N18.9 Chronic kidney disease, unspecified; Z79.84 Long term (current) use of oral hypoglycemic drugs
CPT/HCPCS: 15275; 28124; 36415; 80048; 82948; 87071; 87075; 87186; 87205; 88305; 88311; J1100; J1885; J2001; J2250; J2405; J2710; J2765; J3490; Q4104; 88304; J0690

== ENCOUNTER → 2018-03-29 | Outpatient (CLI) | payer BC ==
[~2018-03-29] MED LIST changes: -BACITRACIN 50,000 UNIT VIAL ONE; -BUPIVACAINE HCL 0.5% INJ 30 ML VIAL INJ ONE; -CEFAZOLIN SOD 2 GM/D5W 50ML 50 ML IV ONE; -DESFLURANE 240 ML BTL INH ONE; -DEXAMETHASONE SOD PHOS INJ 4 MG/ML VIAL ONE; -FENTANYL CITRATE/PF 100MCG/2 ML INJ ONE; -KETOROLAC TROMETHAMINE 30 MG/ML VIAL ONE; -LABETALOL HCL 20 ML ONE; -LIDOCAINE HCL 2% LOCAL INJ 5 ML SDV VIAL INJ ONE; -METOCLOPRAMIDE HCL 10 MG/2ML VIAL ONE; -MIDAZOLAM HCL 2 MG/2 ML VIAL ONE; -NEOSTIGMINE 1 MG/ML 10ML VIAL ONE; -ONDANSETRON HCL INJ 2 MG/ML VIAL ONE; -PROPOFOL IV EMULSION 10 MG/ML 20 ML VIAL ONE
== END ==
LOC: WCC 09:52
PROVIDERS: ATTEND Podiatrist Foot & Ankle Surgery
DX: E11.621 Type 2 diabetes mellitus with foot ulcer (principal); M86.172 Other acute osteomyelitis, left ankle and foot; L97.529 Non-pressure chronic ulcer of other part of left foot with unspecified severity; I10 Essential (primary) hypertension; Z01.810 Encounter for preprocedural cardiovascular examination; Z01.811 Encounter for preprocedural respiratory examination

== ENCOUNTER → 2018-03-30 | Outpatient (CLI) | payer BC | LOC: WCC 11:55 | PROVIDERS: ATTEND Family Medicine Adult Medicine | DX: E11.621 Type 2 diabetes mellitus with foot ulcer (principal); M86.172 Other acute osteomyelitis, left ankle and foot; L97.529 Non-pressure chronic ulcer of other part of left foot with unspecified severity; I10 Essential (primary) hypertension; Z01.810 Encounter for preprocedural cardiovascular examination; Z01.811 Encounter for preprocedural respiratory examination ==

== ENCOUNTER → 2018-03-31 | Outpatient (CLI) | payer BC | LOC: WCC 09:41 | PROVIDERS: ATTEND Internal Medicine Infectious Disease | DX: E11.621 Type 2 diabetes mellitus with foot ulcer (principal); M86.172 Other acute osteomyelitis, left ankle and foot; L97.529 Non-pressure chronic ulcer of other part of left foot with unspecified severity; I10 Essential (primary) hypertension; Z01.810 Encounter for preprocedural cardiovascular examination; Z01.811 Encounter for preprocedural respiratory examination | CPT/HCPCS: 97605; G0277 ==

== ENCOUNTER → 2018-04-04 | Outpatient (CLI) | payer BC | LOC: WCC 13:46 | PROVIDERS: ATTEND Podiatrist Foot & Ankle Surgery | DX: E11.621 Type 2 diabetes mellitus with foot ulcer (principal); M86.172 Other acute osteomyelitis, left ankle and foot; L97.529 Non-pressure chronic ulcer of other part of left foot with unspecified severity; I10 Essential (primary) hypertension; Z01.810 Encounter for preprocedural cardiovascular examination; Z01.811 Encounter for preprocedural respiratory examination | CPT/HCPCS: 36415; 82948; G0277 ==

== ENCOUNTER → 2018-04-05 | Outpatient (CLI) | payer BC | LOC: WCC 14:01 | PROVIDERS: ATTEND Podiatrist Foot & Ankle Surgery | DX: E11.621 Type 2 diabetes mellitus with foot ulcer (principal); M86.172 Other acute osteomyelitis, left ankle and foot; L97.529 Non-pressure chronic ulcer of other part of left foot with unspecified severity; I10 Essential (primary) hypertension; Z01.810 Encounter for preprocedural cardiovascular examination; Z01.811 Encounter for preprocedural respiratory examination ==

== ENCOUNTER → 2018-04-06 | Outpatient (CLI) | payer BC | LOC: WCC 12:27 | PROVIDERS: ATTEND Podiatrist Foot & Ankle Surgery | DX: E11.621 Type 2 diabetes mellitus with foot ulcer (principal); M86.172 Other acute osteomyelitis, left ankle and foot; L97.529 Non-pressure chronic ulcer of other part of left foot with unspecified severity; I10 Essential (primary) hypertension; Z01.810 Encounter for preprocedural cardiovascular examination; Z01.811 Encounter for preprocedural respiratory examination ==

== ENCOUNTER → 2018-04-07 | Outpatient (CLI) | payer BC | LOC: WCC 13:48 | PROVIDERS: ATTEND Pediatrics | DX: E11.621 Type 2 diabetes mellitus with foot ulcer (principal); M86.172 Other acute osteomyelitis, left ankle and foot; L97.529 Non-pressure chronic ulcer of other part of left foot with unspecified severity; I10 Essential (primary) hypertension; Z01.810 Encounter for preprocedural cardiovascular examination; Z01.811 Encounter for preprocedural respiratory examination | CPT/HCPCS: 99213; G0277 ==

== ENCOUNTER → 2018-04-13 | Outpatient (CLI) | payer BC | LOC: WCC 12:01 | PROVIDERS: ATTEND Podiatrist Foot & Ankle Surgery | DX: E11.621 Type 2 diabetes mellitus with foot ulcer (principal); M86.172 Other acute osteomyelitis, left ankle and foot; L97.529 Non-pressure chronic ulcer of other part of left foot with unspecified severity; I10 Essential (primary) hypertension; B96.89 Other specified bacterial agents as the cause of diseases classified elsewhere; Z01.810 Encounter for preprocedural cardiovascular examination; Z01.811 Encounter for preprocedural respiratory examination | CPT/HCPCS: 97605; G0277 ==

== ENCOUNTER → 2018-04-14 | Outpatient (CLI) | payer BC | LOC: WCC 10:21 | PROVIDERS: ATTEND Podiatrist Foot & Ankle Surgery | DX: E11.621 Type 2 diabetes mellitus with foot ulcer (principal); M86.172 Other acute osteomyelitis, left ankle and foot; L97.529 Non-pressure chronic ulcer of other part of left foot with unspecified severity; B96.89 Other specified bacterial agents as the cause of diseases classified elsewhere; I10 Essential (primary) hypertension; Z01.810 Encounter for preprocedural cardiovascular examination; Z01.811 Encounter for preprocedural respiratory examination ==

== ENCOUNTER → 2018-04-17 | Outpatient (CLI) | payer BC | LOC: WCC 11:44 | PROVIDERS: ATTEND Podiatrist Foot & Ankle Surgery | DX: E11.621 Type 2 diabetes mellitus with foot ulcer (principal); M86.172 Other acute osteomyelitis, left ankle and foot; L97.529 Non-pressure chronic ulcer of other part of left foot with unspecified severity; I10 Essential (primary) hypertension; B96.89 Other specified bacterial agents as the cause of diseases classified elsewhere; Z01.810 Encounter for preprocedural cardiovascular examination; Z01.811 Encounter for preprocedural respiratory examination | CPT/HCPCS: 99213; G0277 ==

== ENCOUNTER → 2018-04-19 | Outpatient (CLI) | payer BC | LOC: WCC 12:28 | PROVIDERS: ATTEND Podiatrist Foot & Ankle Surgery | DX: E11.621 Type 2 diabetes mellitus with foot ulcer (principal); M86.172 Other acute osteomyelitis, left ankle and foot; L97.529 Non-pressure chronic ulcer of other part of left foot with unspecified severity; I10 Essential (primary) hypertension; Z01.810 Encounter for preprocedural cardiovascular examination; Z01.811 Encounter for preprocedural respiratory examination | CPT/HCPCS: 11042; 11045; 99213; G0277 ==

== ENCOUNTER → 2018-04-20 | Outpatient (CLI) | payer BC | LOC: WCC 14:20 | PROVIDERS: ATTEND Podiatrist Foot & Ankle Surgery | DX: E11.621 Type 2 diabetes mellitus with foot ulcer (principal); M86.172 Other acute osteomyelitis, left ankle and foot; L97.529 Non-pressure chronic ulcer of other part of left foot with unspecified severity; I10 Essential (primary) hypertension; B96.89 Other specified bacterial agents as the cause of diseases classified elsewhere; Z01.810 Encounter for preprocedural cardiovascular examination; Z01.811 Encounter for preprocedural respiratory examination | CPT/HCPCS: 36415; 82948; G0277 ==

== ENCOUNTER → 2018-04-21 | Outpatient (CLI) | payer BC | LOC: WCC 14:40 | PROVIDERS: ATTEND Podiatrist Foot & Ankle Surgery | DX: E11.621 Type 2 diabetes mellitus with foot ulcer (principal); M86.172 Other acute osteomyelitis, left ankle and foot; L97.529 Non-pressure chronic ulcer of other part of left foot with unspecified severity; I10 Essential (primary) hypertension; B96.89 Other specified bacterial agents as the cause of diseases classified elsewhere; Z01.810 Encounter for preprocedural cardiovascular examination; Z01.811 Encounter for preprocedural respiratory examination | CPT/HCPCS: 99212; G0277 ==

== ENCOUNTER → 2018-04-24 | Outpatient (CLI) | payer BC | LOC: WCC 09:30 | PROVIDERS: ATTEND Podiatrist Foot & Ankle Surgery | DX: E11.621 Type 2 diabetes mellitus with foot ulcer (principal); M86.172 Other acute osteomyelitis, left ankle and foot; L97.529 Non-pressure chronic ulcer of other part of left foot with unspecified severity; I10 Essential (primary) hypertension; B96.89 Other specified bacterial agents as the cause of diseases classified elsewhere; Z01.810 Encounter for preprocedural cardiovascular examination; Z01.811 Encounter for preprocedural respiratory examination | CPT/HCPCS: 99212; G0277 ==

== ENCOUNTER → 2018-04-25 | Outpatient (CLI) | payer BC | LOC: WCC 08:55 | PROVIDERS: ATTEND Podiatrist Foot & Ankle Surgery | DX: E11.621 Type 2 diabetes mellitus with foot ulcer (principal); M86.172 Other acute osteomyelitis, left ankle and foot; L97.529 Non-pressure chronic ulcer of other part of left foot with unspecified severity; I10 Essential (primary) hypertension; B96.89 Other specified bacterial agents as the cause of diseases classified elsewhere; Z01.810 Encounter for preprocedural cardiovascular examination; Z01.811 Encounter for preprocedural respiratory examination | CPT/HCPCS: 99212; G0277 ==

== ENCOUNTER → 2018-04-26 | Outpatient (CLI) | payer BC | LOC: WCC 12:58 | PROVIDERS: ATTEND Podiatrist Foot & Ankle Surgery | DX: E11.621 Type 2 diabetes mellitus with foot ulcer (principal); M86.172 Other acute osteomyelitis, left ankle and foot; L97.529 Non-pressure chronic ulcer of other part of left foot with unspecified severity; I10 Essential (primary) hypertension; B96.89 Other specified bacterial agents as the cause of diseases classified elsewhere; Z01.810 Encounter for preprocedural cardiovascular examination; Z01.811 Encounter for preprocedural respiratory examination | CPT/HCPCS: 97597; G0277 ==

== ENCOUNTER → 2018-04-28 | Outpatient (CLI) | payer BC | LOC: WCC 08:37 | PROVIDERS: ATTEND Podiatrist Foot & Ankle Surgery | DX: E11.621 Type 2 diabetes mellitus with foot ulcer (principal); M86.172 Other acute osteomyelitis, left ankle and foot; L97.529 Non-pressure chronic ulcer of other part of left foot with unspecified severity; B96.89 Other specified bacterial agents as the cause of diseases classified elsewhere; I10 Essential (primary) hypertension; Z01.810 Encounter for preprocedural cardiovascular examination; Z01.811 Encounter for preprocedural respiratory examination | CPT/HCPCS: 99212; G0277 ==

== ENCOUNTER → 2018-05-03 | Outpatient (CLI) | payer BC | LOC: WCC 13:59 | PROVIDERS: ATTEND Podiatrist Foot & Ankle Surgery | DX: E11.621 Type 2 diabetes mellitus with foot ulcer (principal); M86.172 Other acute osteomyelitis, left ankle and foot; L97.529 Non-pressure chronic ulcer of other part of left foot with unspecified severity; I10 Essential (primary) hypertension; B96.89 Other specified bacterial agents as the cause of diseases classified elsewhere; Z01.810 Encounter for preprocedural cardiovascular examination; Z01.811 Encounter for preprocedural respiratory examination | CPT/HCPCS: 36415; 82948; 99212; G0277; Q4121 ==

== ENCOUNTER → 2018-05-04 | Outpatient (CLI) | payer BC | LOC: WCC 12:06 | PROVIDERS: ATTEND Podiatrist Foot & Ankle Surgery | DX: E11.621 Type 2 diabetes mellitus with foot ulcer (principal); M86.172 Other acute osteomyelitis, left ankle and foot; L97.529 Non-pressure chronic ulcer of other part of left foot with unspecified severity; B96.89 Other specified bacterial agents as the cause of diseases classified elsewhere; I10 Essential (primary) hypertension; Z01.810 Encounter for preprocedural cardiovascular examination; Z01.811 Encounter for preprocedural respiratory examination ==

== ENCOUNTER → 2018-05-05 | Outpatient (CLI) | payer BC | LOC: WCC 11:55 | PROVIDERS: ATTEND Podiatrist Foot & Ankle Surgery | DX: E11.621 Type 2 diabetes mellitus with foot ulcer (principal); M86.172 Other acute osteomyelitis, left ankle and foot; L97.529 Non-pressure chronic ulcer of other part of left foot with unspecified severity; B96.89 Other specified bacterial agents as the cause of diseases classified elsewhere; I10 Essential (primary) hypertension; Z01.810 Encounter for preprocedural cardiovascular examination; Z01.811 Encounter for preprocedural respiratory examination ==

== ENCOUNTER → 2018-05-08 | Outpatient (CLI) | payer BC | LOC: WCC 10:35 | PROVIDERS: ATTEND Podiatrist Foot & Ankle Surgery | DX: E11.621 Type 2 diabetes mellitus with foot ulcer (principal); M86.172 Other acute osteomyelitis, left ankle and foot; L97.529 Non-pressure chronic ulcer of other part of left foot with unspecified severity; I10 Essential (primary) hypertension; B96.89 Other specified bacterial agents as the cause of diseases classified elsewhere; Z01.810 Encounter for preprocedural cardiovascular examination; Z01.811 Encounter for preprocedural respiratory examination ==

== ENCOUNTER → 2018-05-10 | Outpatient (CLI) | payer BC | LOC: WCC 13:34 | PROVIDERS: ATTEND Podiatrist Foot & Ankle Surgery | DX: E11.621 Type 2 diabetes mellitus with foot ulcer (principal); M86.172 Other acute osteomyelitis, left ankle and foot; L97.529 Non-pressure chronic ulcer of other part of left foot with unspecified severity; I10 Essential (primary) hypertension; B96.89 Other specified bacterial agents as the cause of diseases classified elsewhere; Z01.810 Encounter for preprocedural cardiovascular examination; Z01.811 Encounter for preprocedural respiratory examination ==

== ENCOUNTER → 2018-05-11 | Outpatient (CLI) | payer BC | LOC: WCC 10:23 | PROVIDERS: ATTEND Podiatrist Foot & Ankle Surgery | DX: E11.621 Type 2 diabetes mellitus with foot ulcer (principal); M86.172 Other acute osteomyelitis, left ankle and foot; L97.529 Non-pressure chronic ulcer of other part of left foot with unspecified severity; I10 Essential (primary) hypertension; B96.89 Other specified bacterial agents as the cause of diseases classified elsewhere; Z01.810 Encounter for preprocedural cardiovascular examination; Z01.811 Encounter for preprocedural respiratory examination ==

== ENCOUNTER → 2018-05-12 | Outpatient (CLI) | payer BC | LOC: WCC 12:32 | PROVIDERS: ATTEND Podiatrist Foot & Ankle Surgery | DX: E11.621 Type 2 diabetes mellitus with foot ulcer (principal); M86.172 Other acute osteomyelitis, left ankle and foot; L97.529 Non-pressure chronic ulcer of other part of left foot with unspecified severity; I10 Essential (primary) hypertension; B96.89 Other specified bacterial agents as the cause of diseases classified elsewhere; Z01.810 Encounter for preprocedural cardiovascular examination; Z01.811 Encounter for preprocedural respiratory examination ==

== ENCOUNTER → 2018-05-15 | Outpatient (CLI) | payer BC | LOC: WCC 11:45 | PROVIDERS: ATTEND Podiatrist Foot & Ankle Surgery | DX: E11.621 Type 2 diabetes mellitus with foot ulcer (principal); M86.172 Other acute osteomyelitis, left ankle and foot; L97.529 Non-pressure chronic ulcer of other part of left foot with unspecified severity; I10 Essential (primary) hypertension; B96.89 Other specified bacterial agents as the cause of diseases classified elsewhere; Z01.810 Encounter for preprocedural cardiovascular examination; Z01.811 Encounter for preprocedural respiratory examination ==

== ENCOUNTER → 2018-05-16 | Outpatient (CLI) | payer BC | LOC: WCC 11:03 | PROVIDERS: ATTEND Podiatrist Foot & Ankle Surgery | DX: E11.621 Type 2 diabetes mellitus with foot ulcer (principal); M86.172 Other acute osteomyelitis, left ankle and foot; L97.529 Non-pressure chronic ulcer of other part of left foot with unspecified severity; I10 Essential (primary) hypertension; B96.89 Other specified bacterial agents as the cause of diseases classified elsewhere; Z01.810 Encounter for preprocedural cardiovascular examination; Z01.811 Encounter for preprocedural respiratory examination ==

== ENCOUNTER → 2018-05-17 | Outpatient (CLI) | payer BC | LOC: WCC 13:06 | PROVIDERS: ATTEND Podiatrist Foot & Ankle Surgery | DX: E11.621 Type 2 diabetes mellitus with foot ulcer (principal); M86.172 Other acute osteomyelitis, left ankle and foot; L97.529 Non-pressure chronic ulcer of other part of left foot with unspecified severity; I10 Essential (primary) hypertension; B96.89 Other specified bacterial agents as the cause of diseases classified elsewhere; Z01.810 Encounter for preprocedural cardiovascular examination; Z01.811 Encounter for preprocedural respiratory examination ==

== ENCOUNTER → 2018-05-18 | Outpatient (CLI) | payer BC | LOC: WCC 10:36 | PROVIDERS: ATTEND Podiatrist Foot & Ankle Surgery | DX: E11.621 Type 2 diabetes mellitus with foot ulcer (principal); M86.172 Other acute osteomyelitis, left ankle and foot; L97.529 Non-pressure chronic ulcer of other part of left foot with unspecified severity; I10 Essential (primary) hypertension; B96.89 Other specified bacterial agents as the cause of diseases classified elsewhere; Z01.810 Encounter for preprocedural cardiovascular examination; Z01.811 Encounter for preprocedural respiratory examination ==

== ENCOUNTER → 2018-05-19 | Outpatient (CLI) | payer BC | LOC: WCC 09:08 | PROVIDERS: ATTEND Podiatrist Foot & Ankle Surgery | DX: E11.621 Type 2 diabetes mellitus with foot ulcer (principal); M86.172 Other acute osteomyelitis, left ankle and foot; L97.529 Non-pressure chronic ulcer of other part of left foot with unspecified severity; I10 Essential (primary) hypertension; B96.89 Other specified bacterial agents as the cause of diseases classified elsewhere; Z01.810 Encounter for preprocedural cardiovascular examination; Z01.811 Encounter for preprocedural respiratory examination ==

== ENCOUNTER → 2018-05-22 | Outpatient (CLI) | payer BC | LOC: WCC 11:31 | PROVIDERS: ATTEND Podiatrist Foot & Ankle Surgery | DX: E11.621 Type 2 diabetes mellitus with foot ulcer (principal); M86.172 Other acute osteomyelitis, left ankle and foot; L97.529 Non-pressure chronic ulcer of other part of left foot with unspecified severity; I10 Essential (primary) hypertension; B96.89 Other specified bacterial agents as the cause of diseases classified elsewhere; Z01.810 Encounter for preprocedural cardiovascular examination; Z01.811 Encounter for preprocedural respiratory examination ==

== ENCOUNTER → 2018-05-23 | Outpatient (CLI) | payer BC | LOC: WCC 09:48 | PROVIDERS: ATTEND Podiatrist Foot & Ankle Surgery | DX: E11.621 Type 2 diabetes mellitus with foot ulcer (principal); M86.172 Other acute osteomyelitis, left ankle and foot; L97.529 Non-pressure chronic ulcer of other part of left foot with unspecified severity; I10 Essential (primary) hypertension; B96.89 Other specified bacterial agents as the cause of diseases classified elsewhere; Z01.810 Encounter for preprocedural cardiovascular examination; Z01.811 Encounter for preprocedural respiratory examination ==

== ENCOUNTER → 2018-05-24 | Outpatient (CLI) | payer BC | LOC: WCC 13:49 | PROVIDERS: ATTEND Podiatrist Foot & Ankle Surgery | DX: E11.621 Type 2 diabetes mellitus with foot ulcer (principal); M86.172 Other acute osteomyelitis, left ankle and foot; L97.529 Non-pressure chronic ulcer of other part of left foot with unspecified severity; I10 Essential (primary) hypertension; B96.89 Other specified bacterial agents as the cause of diseases classified elsewhere; Z01.810 Encounter for preprocedural cardiovascular examination; Z01.811 Encounter for preprocedural respiratory examination | CPT/HCPCS: Q4121 ==

== ENCOUNTER → 2018-05-26 | Outpatient (CLI) | payer BC | LOC: WCC 14:10 | PROVIDERS: ATTEND Podiatrist Foot & Ankle Surgery | DX: E11.621 Type 2 diabetes mellitus with foot ulcer (principal); M86.172 Other acute osteomyelitis, left ankle and foot; L97.529 Non-pressure chronic ulcer of other part of left foot with unspecified severity; I10 Essential (primary) hypertension; B96.89 Other specified bacterial agents as the cause of diseases classified elsewhere; Z01.810 Encounter for preprocedural cardiovascular examination; Z01.811 Encounter for preprocedural respiratory examination ==

== ENCOUNTER → 2018-05-29 | Outpatient (CLI) | payer BC | LOC: WCC 08:48 | PROVIDERS: ATTEND Podiatrist Foot & Ankle Surgery | DX: E11.621 Type 2 diabetes mellitus with foot ulcer (principal); M86.172 Other acute osteomyelitis, left ankle and foot; L97.529 Non-pressure chronic ulcer of other part of left foot with unspecified severity; B96.89 Other specified bacterial agents as the cause of diseases classified elsewhere; I10 Essential (primary) hypertension; Z01.810 Encounter for preprocedural cardiovascular examination; Z01.811 Encounter for preprocedural respiratory examination ==

== ENCOUNTER → 2018-05-31 | Outpatient (CLI) | payer BC | LOC: WCC 13:25 | PROVIDERS: ATTEND Podiatrist Foot & Ankle Surgery | DX: E11.621 Type 2 diabetes mellitus with foot ulcer (principal); M86.172 Other acute osteomyelitis, left ankle and foot; L97.529 Non-pressure chronic ulcer of other part of left foot with unspecified severity; I10 Essential (primary) hypertension; B96.89 Other specified bacterial agents as the cause of diseases classified elsewhere; Z01.810 Encounter for preprocedural cardiovascular examination; Z01.811 Encounter for preprocedural respiratory examination ==

== ENCOUNTER → 2018-06-02 | Outpatient (CLI) | payer BC ==
[~2018-06-02] MED LIST changes: +MINERAL OIL/PETROLAT/GLYCERI 2OZ CRM ONE
== END ==
LOC: WCC 10:55
PROVIDERS: ATTEND Podiatrist Foot & Ankle Surgery
DX: E11.621 Type 2 diabetes mellitus with foot ulcer (principal); M86.172 Other acute osteomyelitis, left ankle and foot; L97.529 Non-pressure chronic ulcer of other part of left foot with unspecified severity; I10 Essential (primary) hypertension; B96.89 Other specified bacterial agents as the cause of diseases classified elsewhere; Z01.810 Encounter for preprocedural cardiovascular examination; Z01.811 Encounter for preprocedural respiratory examination
CPT/HCPCS: 36415; 82948

== ENCOUNTER → 2018-06-05 | Outpatient (CLI) | payer BC ==
[~2018-06-05] MED LIST changes: -MINERAL OIL/PETROLAT/GLYCERI 2OZ CRM ONE
== END ==
LOC: WCC 10:48
PROVIDERS: ATTEND Podiatrist Foot & Ankle Surgery
DX: E11.621 Type 2 diabetes mellitus with foot ulcer (principal); E11.65 Type 2 diabetes mellitus with hyperglycemia; E11.51 Type 2 diabetes mellitus with diabetic peripheral angiopathy without gangrene; E11.69 Type 2 diabetes mellitus with other specified complication; L97.412 Non-pressure chronic ulcer of right heel and midfoot with fat layer exposed; I87.2 Venous insufficiency (chronic) (peripheral); R60.9 Edema, unspecified; G62.9 Polyneuropathy, unspecified; I10 Essential (primary) hypertension; B96.89 Other specified bacterial agents as the cause of diseases classified elsewhere; K86.89 Other specified diseases of pancreas; E78.5 Hyperlipidemia, unspecified; E66.3 Overweight; W01.198A Fall on same level from slipping, tripping and stumbling with subsequent striking against other object, initial encounter; Z01.810 Encounter for preprocedural cardiovascular examination; Z01.811 Encounter for preprocedural respiratory examination

== ENCOUNTER → 2018-06-07 | Outpatient (CLI) | payer BC | LOC: WCC 12:58 | PROVIDERS: ATTEND Podiatrist Foot & Ankle Surgery | DX: E11.621 Type 2 diabetes mellitus with foot ulcer (principal); M86.172 Other acute osteomyelitis, left ankle and foot; L97.529 Non-pressure chronic ulcer of other part of left foot with unspecified severity; I10 Essential (primary) hypertension; B96.89 Other specified bacterial agents as the cause of diseases classified elsewhere; Z01.810 Encounter for preprocedural cardiovascular examination; Z01.811 Encounter for preprocedural respiratory examination ==

== ENCOUNTER → 2018-06-08 | Outpatient (CLI) | payer BC | LOC: WCC 09:02 | PROVIDERS: ATTEND Podiatrist Foot & Ankle Surgery | DX: E11.621 Type 2 diabetes mellitus with foot ulcer (principal); M86.172 Other acute osteomyelitis, left ankle and foot; L97.529 Non-pressure chronic ulcer of other part of left foot with unspecified severity; I10 Essential (primary) hypertension; Z01.810 Encounter for preprocedural cardiovascular examination; Z01.811 Encounter for preprocedural respiratory examination ==

== ENCOUNTER → 2018-06-09 | Outpatient (CLI) | payer BC | LOC: WCC 09:22 | PROVIDERS: ATTEND Podiatrist Foot & Ankle Surgery | DX: E11.621 Type 2 diabetes mellitus with foot ulcer (principal); M86.172 Other acute osteomyelitis, left ankle and foot; L97.529 Non-pressure chronic ulcer of other part of left foot with unspecified severity; I10 Essential (primary) hypertension; Z01.810 Encounter for preprocedural cardiovascular examination; Z01.811 Encounter for preprocedural respiratory examination ==

== ENCOUNTER → 2018-06-14 | Outpatient (CLI) | payer BC | LOC: WCC 13:27 | PROVIDERS: ATTEND Podiatrist Foot & Ankle Surgery | DX: E11.621 Type 2 diabetes mellitus with foot ulcer (principal); M86.172 Other acute osteomyelitis, left ankle and foot; L97.529 Non-pressure chronic ulcer of other part of left foot with unspecified severity; I10 Essential (primary) hypertension; Z01.810 Encounter for preprocedural cardiovascular examination; Z01.811 Encounter for preprocedural respiratory examination ==

== ENCOUNTER → 2018-06-21 | Outpatient (CLI) | payer BC | LOC: WCC 12:21 | PROVIDERS: ATTEND Podiatrist Foot & Ankle Surgery | DX: E11.621 Type 2 diabetes mellitus with foot ulcer (principal); M86.172 Other acute osteomyelitis, left ankle and foot; L97.529 Non-pressure chronic ulcer of other part of left foot with unspecified severity; R60.0 Localized edema; I10 Essential (primary) hypertension; Z01.810 Encounter for preprocedural cardiovascular examination; Z01.811 Encounter for preprocedural respiratory examination ==

== ENCOUNTER → 2018-06-28 | Outpatient (CLI) | payer BC | LOC: WCC 14:26 | PROVIDERS: ATTEND Podiatrist Foot & Ankle Surgery | DX: E11.621 Type 2 diabetes mellitus with foot ulcer (principal); M86.172 Other acute osteomyelitis, left ankle and foot; L97.529 Non-pressure chronic ulcer of other part of left foot with unspecified severity; R60.0 Localized edema; I10 Essential (primary) hypertension; Z01.810 Encounter for preprocedural cardiovascular examination; Z01.811 Encounter for preprocedural respiratory examination ==

== ENCOUNTER → 2018-07-12 | Outpatient (CLI) | payer BC | LOC: WCC 07-04 13:29 | PROVIDERS: ATTEND Podiatrist Foot & Ankle Surgery | DX: E11.621 Type 2 diabetes mellitus with foot ulcer (principal); M86.172 Other acute osteomyelitis, left ankle and foot; L97.529 Non-pressure chronic ulcer of other part of left foot with unspecified severity; R60.0 Localized edema; I10 Essential (primary) hypertension; Z01.810 Encounter for preprocedural cardiovascular examination; Z01.811 Encounter for preprocedural respiratory examination | CPT/HCPCS: 36415; 82948 ==

== ENCOUNTER → 2018-07-17 | Outpatient (CLI) | payer BC | LOC: WCC 13:09 | PROVIDERS: ATTEND Podiatrist Foot & Ankle Surgery | DX: E11.621 Type 2 diabetes mellitus with foot ulcer (principal); M86.172 Other acute osteomyelitis, left ankle and foot; L97.529 Non-pressure chronic ulcer of other part of left foot with unspecified severity; R60.0 Localized edema; I10 Essential (primary) hypertension; Z01.810 Encounter for preprocedural cardiovascular examination; Z01.811 Encounter for preprocedural respiratory examination ==

== ENCOUNTER → 2018-07-21 | Outpatient (CLI) | payer BC | LOC: WCC 12:25 | PROVIDERS: ATTEND Podiatrist Foot & Ankle Surgery | DX: E11.621 Type 2 diabetes mellitus with foot ulcer (principal); M86.172 Other acute osteomyelitis, left ankle and foot; L97.529 Non-pressure chronic ulcer of other part of left foot with unspecified severity; I10 Essential (primary) hypertension; R60.0 Localized edema; Z01.810 Encounter for preprocedural cardiovascular examination; Z01.811 Encounter for preprocedural respiratory examination ==

== ENCOUNTER → 2018-08-02 | Outpatient (CLI) | payer BC | LOC: WCC 13:26 | PROVIDERS: ATTEND Podiatrist Foot & Ankle Surgery | DX: E11.621 Type 2 diabetes mellitus with foot ulcer (principal); L97.529 Non-pressure chronic ulcer of other part of left foot with unspecified severity; M86.172 Other acute osteomyelitis, left ankle and foot; R60.0 Localized edema; I10 Essential (primary) hypertension; Z01.810 Encounter for preprocedural cardiovascular examination; Z01.811 Encounter for preprocedural respiratory examination ==

== ENCOUNTER → 2018-08-23 | Outpatient (CLI) | payer BC | LOC: WCC 14:53 | PROVIDERS: ATTEND Podiatrist Foot & Ankle Surgery | DX: E11.621 Type 2 diabetes mellitus with foot ulcer (principal); M86.172 Other acute osteomyelitis, left ankle and foot; L97.529 Non-pressure chronic ulcer of other part of left foot with unspecified severity; R60.0 Localized edema; I10 Essential (primary) hypertension; L84 Corns and callosities; Z01.810 Encounter for preprocedural cardiovascular examination; Z01.811 Encounter for preprocedural respiratory examination ==

== ENCOUNTER → 2018-09-06 | Outpatient (CLI) | payer BC | LOC: WCC 13:07 | PROVIDERS: ATTEND Podiatrist Foot & Ankle Surgery | DX: E11.621 Type 2 diabetes mellitus with foot ulcer (principal); L97.529 Non-pressure chronic ulcer of other part of left foot with unspecified severity; L84 Corns and callosities; I10 Essential (primary) hypertension; M86.172 Other acute osteomyelitis, left ankle and foot; R60.0 Localized edema; Z01.810 Encounter for preprocedural cardiovascular examination; Z01.811 Encounter for preprocedural respiratory examination ==

== ENCOUNTER → 2018-09-18 | Outpatient (CLI) | payer BC | LOC: WCC 14:24 | PROVIDERS: ATTEND Podiatrist Foot & Ankle Surgery | DX: E11.621 Type 2 diabetes mellitus with foot ulcer (principal); M86.172 Other acute osteomyelitis, left ankle and foot; L97.529 Non-pressure chronic ulcer of other part of left foot with unspecified severity; L84 Corns and callosities; I10 Essential (primary) hypertension; Z01.810 Encounter for preprocedural cardiovascular examination; Z01.811 Encounter for preprocedural respiratory examination ==

== ENCOUNTER → 2018-10-02 | Outpatient (CLI) | payer BC | LOC: WCC 13:29 | PROVIDERS: ATTEND Podiatrist Foot & Ankle Surgery | DX: E11.621 Type 2 diabetes mellitus with foot ulcer (principal); M86.172 Other acute osteomyelitis, left ankle and foot; L97.529 Non-pressure chronic ulcer of other part of left foot with unspecified severity; L84 Corns and callosities; I10 Essential (primary) hypertension; Z01.810 Encounter for preprocedural cardiovascular examination; Z01.811 Encounter for preprocedural respiratory examination | CPT/HCPCS: 36415; 82948 ==

== ENCOUNTER 2019-01-01 14:24 | Inpatient (IN) | payer BC ==
[~2019-01-01] VITALS: Ht 180.3 cm; Wt 99.8 kg
[~2019-01-01 14:24] MED LIST changes: -COLLAGENASE OINTMENT 30 GM TUBE ONE; -LIDOCAINE/PRILOCAINE 2.5-2.5% KIT ONE; -NIFEDIPINE ER60 MG PO; -PANTOPRAZOLE SO40 MG PO
[2019-01-01] MEDS ORDERED: VANCOMYCIN 1GM/NS 250 ML 250 ML IV SCH (15:00)
[2019-01-01] MEDS ORDERED: PIPER-TAZ 3.375 GM 50 ML IV SCH (15:00)
--- NOTE | 2019-01-01 16:26 | Diagnostic Imaging Report ---
Exam: Right foot radiographs-3 views History: Foot wound, evaluate for osteomyelitis. Comparison: None. Findings: No evidence of acute fracture or malalignment. There are diffuse atherosclerotic vascular calcifications. No evidence of bony destructive changes. There is a mild sclerotic appearance of the base of the fifth metatarsal with overlying soft tissue irregularity, which may represent ulceration. Impression: Mild sclerotic appearance of the base of the fifth metatarsal with possible overlying skin ulceration. Findings could represent chronic osteomyelitis. MRI would be more sensitive for evaluation. Signed by: Dr. Dashawn Quesada MD on 01/01/2019 4:22 PM
[2019-01-01 17:27] LABS: BASOPHILS % 0.3 % (0.0-1.0); EOSINOPHILS # (AUTO) 0.3 (0.0-0.4); EOSINOPHILS % 1.8 % (0.0-6.0); HEMATOCRIT 22.7 % (38.2-49.6); HEMOGLOBIN 7.8 g/dL (14.0-18.0); LYMPHOCYTES # (AUTO) 1.7 (1.0-3.2); LYMPHOCYTES % 10.6 % (18.0-39.1); MEAN CORPUSCULAR HEMOGLOBIN 29.9 pg (28-32); MEAN CORPUSCULAR HGB CONC 34.4 g/dL (31-35); MONOCYTES # (AUTO) 1.3 (0.2-0.8); MONOCYTES % 7.8 % (4.4-11.3); NEUTROPHILS # (AUTO) 12.4 (2.1-6.9); NEUTROPHILS % 77.8 % (38.7-80.0); PLATELET COUNT 427 x10e3/uL (140-360); RED BLOOD COUNT 2.61 x10e6/uL (4.3-5.7)
[2019-01-01 17:46] LABS: ALBUMIN 2.6 g/dL (3.5-5.0); ALBUMIN/GLOBULIN RATIO 0.5 (0.8-2.0); ANION GAP 13.4 mmol/L (8-16); CREATININE, SERUM 3.71 mg/dL (0.72-1.25); MAGNESIUM 1.8 MG/DL (1.3-2.1)
[2019-01-01 17:55] LABS: POTASSIUM 5.4 mmol/L (3.5-5.1)
[2019-01-01] MEDS ORDERED: SODIUM CHLORIDE 0.9% 1000ML 1,000 ML IV SCH (18:12)
[2019-01-01] MEDS ORDERED: MORPHINE SULFATE 2 MG/ML SYR 1ML IV PRN (18:15)
[2019-01-01] MEDS ORDERED: ONDANSETRON HCL INJ 2MG/ML 2ML 2 MG/ML VIAL IV PRN (18:15)
[2019-01-01] MEDS ORDERED: DEXTROSE 50% SYRINGE 50 ML IV PRN (18:15)
[2019-01-01] MEDS ORDERED: MORPHINE SULFATE INJ 4 MG/ML INJ 1ML IV PRN (18:30)
[2019-01-01] MEDS ORDERED: PIPERACILLIN/TAZO 2.25 GM 50 ML IV SCH (18:30)
--- NOTE | 2019-01-01 19:21 | NUR ---
dictation [id number]
[2019-01-01] MEDS: INSULIN REGULAR, HUMAN 100 UNIT/1 ML 3ML VIAL SQ SCH (21:00)
[2019-01-01 21:33] VITALS: BP 188/84
[2019-01-01] MEDS: LINEZOLID 600 MG/D5W 300ML 300 ML IV SCH (22:00)
[2019-01-01 22:37] VITALS: BP 188/84
[2019-01-02] VITALS (7 sets, daily range): BP systolic 136–176; BP diastolic 68–84
[2019-01-02] MEDS: PIPERACILLIN/TAZO 2.25 GM 50 ML IV SCH ×3 (00:30→17:09)
--- NOTE | 2019-01-02 02:20 | Consultation ---
DATE OF CONSULTATION: 01/01/2019 REASON FOR CONSULTATION: Osteomyelitis and infection of the right foot. HISTORY OF PRESENT ILLNESS: The patient apparently did buy new shoes recently and he noticed that on his right foot on the lateral aspect, there is an area of redness and black discoloration. The patient came in with redness, swelling, and worsening condition over the last week of the foot. There is no specific trauma except the new shoes. The patient also noted there is some drainage coming from the foot on the lateral aspect. PAST MEDICAL HISTORY: Diabetes mellitus, osteomyelitis, and severe neuropathy. PAST SURGICAL HISTORY: Multiple debridements on his feet before. ALLERGIES: NKA. SOCIAL HISTORY: There is no smoking, drug abuse, or alcohol abuse. FAMILY HISTORY: Diabetes mellitus. REVIEW OF SYSTEMS: HEENT: Negative. PULMONARY: Negative. CARDIAC: Negative. : Negative. GI: Negative. SKIN: There is no other rash. LABORATORY DATA: White count 15.9, hemoglobin 7.38, and platelets of 427. Sodium 131, potassium 5.1, and creatinine 3.71. PHYSICAL EXAMINATION: GENERAL: He is currently alert, oriented, does not seem to be in acute distress. VITAL SIGNS: Stable, currently afebrile. HEENT: Not icteric. NECK: Supple. CHEST: Few crackles bilaterally. COR: S1 and S2. No murmur. ABDOMEN: Soft. Bowel sounds present. No tenderness. EXTREMITIES: Right foot, there is edema. There is erythema. There is pus coming out of the lateral aspect of his foot. IMPRESSION: 1. Infection of the foot, concerned about abscess, concerned about osteomyelitis in the patient with diabetes mellitus and neuropathy. I am also concerned about the possibility of peripheral vascular disease, although he did have vascular workup he is telling me recently. 2. Chronic kidney disease. 3. Anemia, probably secondary to his chronic kidney disease and sepsis. 4. Diabetes mellitus with neuropathy. RECOMMENDATION: Agree with x-ray. We will obtain MRI without contrast. We will add Zyvox. Continue Zosyn at renal dose. Would need Podiatry evaluation for surgery. Diabetic control. Keep the foot elevated in the meantime. We will follow. Further recommendations to follow. MD SURESH Childress/GIOVANNA /[id number]
[2019-01-02 06:59] LABS: BASOPHILS % 0.4 % (0.0-1.0); EOSINOPHILS # (AUTO) 0.2 (0.0-0.4); EOSINOPHILS % 2.1 % (0.0-6.0); HEMATOCRIT 21.1 % (38.2-49.6); HEMOGLOBIN 7.2 g/dL (14.0-18.0); LYMPHOCYTES # (AUTO) 1.7 (1.0-3.2); LYMPHOCYTES % 15.2 % (18.0-39.1); MEAN CORPUSCULAR HEMOGLOBIN 29.6 pg (28-32); MEAN CORPUSCULAR HGB CONC 34.1 g/dL (31-35); MEAN CORPUSCULAR VOLUME 86.8 fL (81-99); MONOCYTES % 9.1 % (4.4-11.3); NEUTROPHILS # (AUTO) 7.8 (2.1-6.9); NEUTROPHILS % 71.5 % (38.7-80.0); PLATELET COUNT 349 x10e3/uL (140-360); RED BLOOD COUNT 2.43 x10e6/uL (4.3-5.7)
[2019-01-02 07:27] LABS: ALBUMIN 2.1 g/dL (3.5-5.0); ALBUMIN/GLOBULIN RATIO 0.5 (0.8-2.0); CALCIUM 8.5 mg/dL (8.4-10.2); CREATININE, SERUM 3.76 mg/dL (0.72-1.25)
[2019-01-02] MEDS: LINEZOLID 600 MG/D5W 300ML 300 ML IV SCH ×2 (09:00→20:56)
[2019-01-02] MEDS: INSULIN REGULAR, HUMAN 100 UNIT/1 ML 3ML VIAL SQ SCH ×4 (09:00→20:56)
--- NOTE | 2019-01-02 10:42 | Diagnostic Imaging Report ---
MRI of the right forefoot without contrast. History: Lesion infection on the right foot. Diabetes. Incision and drainage of abscess. Cellulitis. Technique: Multiplanar multisequence MRI of the foot without contrast Comparison: Radiograph 01/01/2019 Findings: Abnormal skin thickening, skin ulceration and abnormal soft tissue edema at the lateral aspect of the foot adjacent to the proximal fifth metatarsal. There is abnormal underlying bone marrow edema in the proximal fifth metatarsal consistent with osteomyelitis. No well-formed drainable fluid collection/abscess is seen. Bone marrow edema in the lateral aspect of the cuboid bone and adjacent cuneiform bone could be stress related. Bone marrow edema in the navicular bone with chronic appearing fracture deformity as seen on series 5 image 14 through 16. Soft tissue edema about the foot likely due to cellulitis. Nonspecific edema throughout the foot musculature. No ligamentous or tendon tear is seen. The visualized neurovascular bundles are intact. No talar dome osteochondral lesion is seen. Impression: Abnormal skin thickening, skin ulceration and abnormal soft tissue edema at the lateral aspect of the foot adjacent to the proximal fifth metatarsal. There is abnormal underlying bone marrow edema in the proximal fifth metatarsal consistent with osteomyelitis. No well-formed drainable fluid collection/abscess is seen. Bone marrow edema in the lateral aspect of the cuboid bone and adjacent cuneiform bone could be stress related. Bone marrow edema in the navicular bone with chronic appearing fracture deformity Signed by: Dr. Terry Lai M.D. on 01/02/2019 10:39 AM
[2019-01-02] MEDS: SODIUM BICARBONATE 8.4% SYRING 150 ML in DEXTROSE 5% 1,000 ML IV SCH (14:43)
[2019-01-02 14:47] LABS: % IRON SATURATION 21 % (15-50); IRON 30 ug/dL (65-175); TOTAL IRON BINDING CAPACITY 146 ug/dL (261-478); TRANSFERRIN 104 mg/dL (174-364)
--- NOTE | 2019-01-02 15:48 | NUR ---
WOUND CARE CONSULTATION - INITIAL EVALUATION Patient admitted from home, being followed by Dr[facility] Ch[facility] to ER for worsening ulcer to Right Lateral Foot. HX: DM, Cataracts, DFU. LABS: WBC10.96 HGB7.2 HCT21.1 NEUT%71.5 TLL197 Wound Culture - Gram Neg. Bacilli MRI - Bone Marrow Edema indicative of Osteomyelitis Dr. Deal on case - patient on IV ABX. Zosyn and Zyvox. Dr. Conner covering for Dr. Chua. Awaiting, has been informed by [facility]. PATIENT VISIT: - Right Lateral Foot Wound. Malodorous, with 100% non-viable tissue present. Draining purulent discharge. Palpable bone to distal portion of right lateral foot. Proximal open area boggy and soft to touch. Non draining. Does verbalize some pain to foot but tolerable after IV morphine. Redness streaking to mid forefoot. Periwound macerated and draining foul odorous clear drainage. Wound measurements and additional description documented under Wound Assessment portion and is linked to this note. Patient states redness has improved since admitted last night. Family at bedside. Bruno Score 20. Ambulates to Bathroom. Self Care. IMPRESSION: Right lateral Foot - DFU Grade 3 RECOMMENDATION: Needs Sx Debridement. 1. Right Lateral Foot- DFU Grade 3 - - Cleanse wound with Betadine Moistened Gauze - Apply diluted Betadine moistened gauze dressing Daily until evaluated by Dr. Conner. Johnna ASCENCIO Thank you for consulting with Wound Care. Addendum: 01/02/19 at 1607 by Hitesh Faustin RN Amended: Links added.
--- NOTE | 2019-01-02 16:00 | Diagnostic Imaging Report ---
EXAMINATION: Renal ultrasound. CLINICAL HISTORY :Acute kidney injury COMPARISON: <None available.> TECHNIQUE: Grayscale and color Doppler evaluation of the kidneys and bladder was performed in transverse and longitudinal planes. DISCUSSION: RIGHT KIDNEY: The right kidney measures 11.8 cm in length and shows normal echogenicity. No hydronephrosis, shadowing calculi or solid mass lesions. LEFT KIDNEY: The left kidney measures 12.6 cm in length and shows normal echogenicity. No hydronephrosis, shadowing calculi or solid mass lesions. BLADDER: Unremarkable. Left ureteral jet is identified. Right ureteral jet is not visualized likely related to timing of scan acquisition. IMPRESSION: Unremarkable sonographic appearance of the kidneys. Signed by: Dr. Sanya Carrillo M.D. on 01/02/2019 3:57 PM
[2019-01-02] MEDS ORDERED: LIDOCAINE HCL 1% LOCAL INJ 20 ML VIAL INJ NR (16:45)
[2019-01-02] MEDS: SODIUM BICARBONATE 650 MG TAB PO SCH (17:09)
--- NOTE | 2019-01-02 18:30 | NUR ---
Dr. Conner here to see pt and did bedside debridement to left and right foot ulcers. Cultures were sent to lab. Dressings to bilateral feet are dry and intact. Pt is aox4 and able to verbalize needs.
--- NOTE | 2019-01-02 19:45 | Consultation ---
DATE OF CONSULTATION: 01/02/2019 REASON FOR CONSULTATION: Acute kidney injury. HISTORY OF PRESENT ILLNESS: A 43-year-old gentleman with longstanding history of diabetes, diabetic retinopathy, neuropathy, and hypertension, who has ongoing foot infection, left foot is under dressing, followed by Dr. Valdes as an outpatient. Has been intermittently on antibiotic for the last one year, admitted this time with blister formation. According to patient, denies fevers, chills, chest pain, shortness of breath. Denies nausea, vomiting, or headache. LABS: Show white count 10.9, hemoglobin 7.2. Sodium 134, potassium 5, bicarb 19, creatinine 3.75 with magnesium level 1.7 and albumin of 2.1. Blood sugars 146 to 198 range. ALLERGIES: NO APPARENT DRUG ALLERGIES. SOCIAL HISTORY: Does not smoke or drink. He is very compliant to medication here lately. His hemoglobin A1c last he claims was 6.3. MEDICATIONS: He is currently on: 1. Linezolid. 2. Normal saline at 125 mL an hour, which I am going to stop. 3. Piperacillin and tazobactam 2.25 IV q.8. 4. Vancomycin 1 g q.12, which has been stopped. 5. Insulin. 6. Morphine p.r.n. 7. Ondansetron p.r.n. FAMILY HISTORY: Significant for diabetes. PHYSICAL EXAMINATION: GENERAL: Awake, alert, and oriented x3, lying supine in bed. No apparent distress. VITAL SIGNS: Blood pressure 175/74, pulse rate 84, and afebrile. HEENT: Cornea clear. Mucosa moist. NECK: Veins flat. LUNGS: Relatively clear. HEART: S1, S2 audible. ABDOMEN: Otherwise, soft and nontender. No apparent visceromegaly. EXTREMITIES: Lower extremity dressing noted over the foot. No edema. IMPRESSION: 1. Acute kidney injury in a patient with longstanding history of diabetes, diabetic complications, diabetic end-organ disease. Underlying hypertension, relatively poorly controlled. Has anemia, must rule out iron-deficiency anemia. Has been intermittently on antibiotics. CBC does not show any significant eosinophilia. 2. Etiology of acute kidney injury, multifactorial, must rule out tubulointerstitial nephritis, possibility of underlying diabetic nephropathy with acute component, possibly ATN should be entertained as well. Has evidence of distal RTA type 4. We will start p.o. bicarbonate. Discontinue IV normal saline. Start IV bicarbonate. Start Procardia for blood pressure control, iron profile, urine protein creatinine ratio, serum uric acid, kidney ultrasound. MD GIANFRANCO Aguila/GIOVANNA /[id number]
[2019-01-03] VITALS (10 sets, daily range): BP systolic 114–188; BP diastolic 58–94
--- NOTE | 2019-01-03 00:01 | NUR ---
PER DR Modesto BADILLO DULCOLAX 20MG PO NOW AND ANOTHER IN 30 MINUTES. WILL CONTINUE TO MONITOR.
[2019-01-03] MEDS: SODIUM BICARBONATE 8.4% SYRING 150 ML in DEXTROSE 5% 1,000 ML IV SCH (01:22)
[2019-01-03] MEDS: PIPERACILLIN/TAZO 2.25 GM 50 ML IV SCH ×2 (01:22→08:53)
--- NOTE | 2019-01-03 05:06 | Consultation ---
DATE OF CONSULTATION: 01/02/2019 REASON FOR CONSULTATION: Ulcerations to both lower extremities with a pregangrenous lateral aspect of the right foot. HISTORY OF PRESENT ILLNESS: This is a pleasant 43-year-old male, was seen at bedside accompanied by spouse and daughter and later parents of the patient came in, relates that he started with an ulceration that Dr. Chua has been treating for several weeks now to the plantar aspect of the 5th metatarsal tuberosity. Also has an ulceration to the lateral aspect left foot that is healing very slowly. 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 He relates he bought a pair of new shoes several weeks ago that the ulcerations are getting a little bit bigger, but started turning black approximately a week ago. He denies any history of fever, chills, nausea, or vomiting. PAST MEDICAL HISTORY: Remarkable for bzy-domhkmg-jdxcesrvu diabetes and hypertension. MEDICATIONS: Taken at home, only took medication to his hypertension, did not take metformin. PAST SURGICAL HISTORY: Remarkable for amputation of the 4th and 5th digits with partial 4th and 5th metatarsal head resections secondary to grayson suffered and he did not feel secondary to his diabetic neuropathy. ALLERGIES: THE PATIENT DENIES. CURRENT MEDICATIONS: Include IV Zosyn. FAMILY HISTORY: Remarkable for diabetes. SOCIAL HISTORY: Denies any smoking, drinking, or recreational drug use. 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 REVIEW OF SYSTEMS: CARDIAC: Denies any palpitations or arrhythmias. RESPIRATORY: Denies any shortness of breath or cough. GASTROINTESTINAL: Denies any diarrhea or constipation. GENITOURINARY: Denies hematuria or problems voiding. PHYSICAL EXAMINATION: VITAL SIGNS: Afebrile, pulse rate 84, respirations 18, blood pressure 172/77, O2 saturation 98%. LABORATORY DATA: Show white blood cell count dropping from 15.9 to 10.6 from yesterday till today, hemoglobin 7.2, hematocrit 21.1 with a platelet count of 349. Blood glucose of 153. PODIATRIC PHYSICAL EXAMINATION: Reveals the following, VASCULATURE: Pedal pulses of both the DP and PT are palpable. CFT to all toes present is less than 4 seconds. NEUROLOGICAL: Reveals loss of protective sensation when utilizing Clio-Rob 5.07 monofilament wire. MUSCULOSKELETAL: Shows muscle mass to be symmetrical. Muscle strength to be 4-5/5 to all muscle groups. Has some toes missing to his left lower extremity from previous surgery. DERMATOLOGICAL: Shows multiple ulcerations to both lower extremities. He has a grade 2 ulcer to the plantar lateral aspect of the 4th metatarsal, left foot measuring 2.5 cm in diameter. He has a grade 3/4 ulceration down to bone with some necrosis present, severe foul smell measuring 3 x 4 cm in diameter with another ulceration starting behind it due to the tracking of the infection with severe foul smell. X-rays were evaluated. No gas in the tissue. Questionable for possible osteomyelitis. ASSESSMENT: Grade 4 ulcer, possible osteo right foot, grade 2/3 ulceration, left with diabetic neuropathy and cellulitis. PLAN: We will continue IV antibiotics. At bedside, after proper consent of the patient, sharp excisional debridement of both ulcerations to both lower extremities were performed down to subcutaneous tissue to the left and down to muscle to the right. Devitalized tissue was sharply excised until good viable bleeding tissue was achieved. Deep cultures were taken for aerobic and anaerobic growth. We will start Santyl followed by diluted wet-to-dry Betadine. Continue IV antibiotics. See how he responds. We will treat him conservatively for now. The patient understands if not responsive may need further debridement, which may include partial amputation of foot. SONU Fair/GIOVANNA /[id number]
[2019-01-03 06:15] LABS: BASOPHILS % 0.2 % (0.0-1.0); EOSINOPHILS # (AUTO) 0.2 (0.0-0.4); EOSINOPHILS % 2.2 % (0.0-6.0); HEMATOCRIT 19.6 % (38.2-49.6); LYMPHOCYTES # (AUTO) 1.5 (1.0-3.2); LYMPHOCYTES % 15.6 % (18.0-39.1); MEAN CORPUSCULAR HEMOGLOBIN 29.8 pg (28-32); MEAN CORPUSCULAR HGB CONC 34.2 g/dL (31-35); MEAN CORPUSCULAR VOLUME 87.1 fL (81-99); MONOCYTES # (AUTO) 0.9 (0.2-0.8); MONOCYTES % 9.5 % (4.4-11.3); NEUTROPHILS # (AUTO) 6.8 (2.1-6.9); NEUTROPHILS % 70.9 % (38.7-80.0); PLATELET COUNT 365 x10e3/uL (140-360); RED BLOOD COUNT 2.25 x10e6/uL (4.3-5.7); RED CELL DISTRIBUTION WIDTH 12.1 % (11.7-14.4)
[2019-01-03 06:21] LABS: HEMOGLOBIN 6.7 g/dL (14.0-18.0)
--- NOTE | 2019-01-03 06:28 | NUR ---
Dr. Nieves called to report critical H/H. Answering service said he will call me back.
[2019-01-03 06:33] LABS: ALBUMIN 2.1 g/dL (3.5-5.0); ALBUMIN/GLOBULIN RATIO 0.5 (0.8-2.0); ANION GAP 10.6 mmol/L (8-16); CALCIUM 8.4 mg/dL (8.4-10.2); CREATININE, SERUM 3.63 mg/dL (0.72-1.25); POTASSIUM 4.6 mmol/L (3.5-5.1)
--- NOTE | 2019-01-03 06:43 | NUR ---
The patient is laying comfortably, and states he was able to walk to the bathroom with no discomfort. Bilateral dressing are intact with scant serous drainage. No bleeding noted. Dr. Nieves called back and order 1 unit of blood for the patient for h/h of 6.7/9.6. Patient informed. IV patent, HOB slightly elevated, bed low, wheels locked, and call light within reach. will inform nurse of order.
[2019-01-03] MEDS ORDERED: SODIUM CHLORIDE 0.9% 250ML 250 ML IV ONE ×2 (07:00→10:30)
[2019-01-03] MEDS: SODIUM BICARBONATE 650 MG TAB PO SCH ×2 (08:53→17:14)
[2019-01-03] MEDS ORDERED: NIFEDIPINE CR 30 MG TAB PO SCH ×2 (09:00)
[2019-01-03] MEDS: LINEZOLID 600 MG/D5W 300ML 300 ML IV SCH (09:56)
[2019-01-03] MEDS: INSULIN REGULAR, HUMAN 100 UNIT/1 ML 3ML VIAL SQ SCH ×4 (10:29→20:38)
[2019-01-03] MEDS ORDERED: CLONIDINE HCL 0.1 MG TAB PO SCH (10:45)
--- NOTE | 2019-01-03 10:45 | NUR ---
DR. MYLES ON THE UNIT- INFORMED DR. MYLES OF PATIENT'S ELEVATED BP OF 177/83. NEW ORDER RECEIVED FOR AN ADDITION ONE TIME DOSE OF 30MG OF NIFEDIPINE. WILL CONTINUE TO ASSESS THE PATIENT'S BP IN ORDER TO START BLOOD TRANSFUSION.
[2019-01-03] MEDS ORDERED: NIFEDIPINE CR 30 MG TAB PO NR (11:15)
[2019-01-03] MEDS: MUPIROCIN 2% OINT 22 GM TUBE TOP SCH (12:41)
[2019-01-03] MEDS: COLLAGENASE OINTMENT 30 GM TUBE TP SCH (12:41)
--- NOTE | 2019-01-03 12:44 | NUR ---
PATIENT'S BP IS ELEVATED. REASSESSED MANUALLY RESULT 188/94. AT THIS TIME UNABLE TO ADMINISTER BLOOD TRANSFUSION D/T ELEVATED BP.
[2019-01-03] MEDS: IRON SUCROSE 100 MG in SODIUM CHLORIDE 0.9% 100 ML 100 ML IV SCH (13:07)
[2019-01-03] MEDS: HYDRALAZINE HCL 20 MG/ML VIAL IV PRN (13:28)
--- NOTE | 2019-01-03 13:41 | NUR ---
PATIENT'S BP REMAIN ELEVATED. PATIENT DENIES PAIN. PATIENT RECEIVED IV HYDRALAZINE RECENTLY. AT THIS TIME UNABLE TO ADMINISTER BLOOD TRANSFUSION.
[2019-01-03] MEDS: DAPTOMYCIN 500mg 10ML 500 MG in SODIUM CHLORIDE 0.9% 100 ML IV SCH (14:28)
--- NOTE | 2019-01-03 15:08 | NUR ---
PATIENT OFF THE UNIT PER BED TO RADIOLOGY FOR CENTRAL LINE PLACEMENT. PATIENT IS IN STABLE CONDITION WITH NO S/S OF RESPIRATORY DISTRESS.
[2019-01-03] MEDS ORDERED: ONDANSETRON HCL 4 MG ORAL DISINTEGRATING TAB PO PRN (15:30)
[2019-01-03] MEDS ORDERED: LIDOCAINE HCL 1% LOCAL INJ 20 ML VIAL ONE (15:35)
--- NOTE | 2019-01-03 16:41 | NUR ---
PATIENT BACK ON THE UNIT FROM RADIOLOGY WITH A CENTRAL LINE. PATIENT IS IN STABLE CONDITION WITH NO S/S OF RESPIRATORY DISTRESS. FAMILY MEMBERS PRESENT IN ROOM. CALL LIGHT IS WITHIN REACH.
--- NOTE | 2019-01-03 16:45 | Diagnostic Imaging Report ---
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 Contrast used: None Estimated blood loss: Minimal Blood products administered: None Complications: No immediate Specimens: None Implants: 7 Kiswahili 16 cm triple-lumen central venous catheter DISCUSSION: Informed consent was obtained and documented in the medical record after discussion of risks and benefits. The patient was placed in the supine position on the fluoroscopic table. Preliminary sonographic evaluation confirmed patency of the right internal jugular vein, evidenced by compressibility. The right neck was prepped and draped in the standard sterile fashion. 1% lidocaine was infiltrated into the skin and subcutaneous tissues for local anesthesia. Then under continuous sonographic guidance, an 18-gauge singlewall needle was used to access the right internal jugular vein. A permanent sonographic image was stored in the medical record. A 0.0 3 5-in. wire was advanced centrally into the IVC under fluoroscopic guidance. The needle was removed over the wire and the tract was dilated. Then a 7 Kiswahili, 16 cm triple-lumen central venous catheter was advanced over the wire to full depth. The wire was removed, and the catheter tip was positioned at the superior cavoatrial junction. Each lumen showed adequate bidirectional flow and was flushed with sterile saline. The catheter was secured to the skin with monofilament nylon suture and a sterile dressing was applied. The patient tolerated the procedure well without immediate complication. FINDINGS: Patent right internal jugular vein. IMPRESSION: Successful placement of a 7 Kiswahili, 16 cm triple-lumen central venous catheter by a right internal jugular approach under sonographic and fluoroscopic guidance. Signed by: Dr. Sanya Carrillo M.D. on 01/03/2019 4:41 PM
[2019-01-03] MEDS: CEFEPIME 1GM/NS 0.9% 50 ML 50 ML IV SCH (17:14)
--- NOTE | 2019-01-03 18:06 | NUR ---
ATTEMPTED TO START BLOOD TRANSFUSION BUT PATIENT IS CURRENTLY IN THE RESTROOM AND IS ASKING FOR THE RN TO COME BACK IN 20-25 MINUTES. PATIENT'S ALSO ASKED RN TO COME BACK OR START BLOOD LATER.
--- NOTE | 2019-01-03 19:00 | Progress Note ---
DATE: 01/03/2019 SUBJECTIVE: The patient is seen at bedside, accompanied by multiple family members. He is denying any history of fever, chills, nausea, or vomiting. Decreased discomfort to both lower extremities. OBJECTIVE: VITAL SIGNS: Afebrile, pulse rate 92, respirations 20, blood pressure 178/79, O2 saturation 98%. EXTREMITIES: Ulcerations are looking somewhat a little bit better. Still some malodor and tracking to bone to the right foot ulceration, has an ulceration down to subcutaneous tissue, very close to bone to the plantar forefoot aspect of the left foot. Ulcer to the left lower extremity is approximately 2.5 cm in diameter. Ulcer to the right foot is tracking into 2 different ulcerations, one measuring 4 x 3.5 to 5 cm in diameter and the other one 1.5 to 2 cm, tracking distal and proximal to the 5th metatarsal tuberosity. Still foul smell present with bone exposed. LABORATORY DATA: Noted. White blood cell count dropping from 9.6 with a hemoglobin of 6.7, hematocrit of 19.6 with a platelet count of 365. The patient's blood glucose is 182. ASSESSMENT: 1. Grade 4 ulcer, right. 2. Osteomyelitis, right foot. 3. Diabetic neuropathy with a grade 2/3 ulceration, left foot. PLAN: Sharp excision of the ulcers was carried down to muscle and bone to the right and down to subcutaneous tissue to the left. Devitalized tissue sharply excised until good viable bleeding tissue was achieved. The tracking between the 2 ulcerations to the right foot was opened up via a sterile 10 blade to allow for proper drainage. Santyl collagenase followed by diluted wet-to-dry Betadine was applied to both lower extremity ulcerations. Bactroban ointment will be applied to the left great toe ulcer. The patient aware he will need IV antibiotics for at least 4-6 weeks. Healing will be slow. He may need possible partial amputation of foot if not responsive to conservative care. We will continue to follow. SONU Fair/GIOVANNA /[id number]
--- NOTE | 2019-01-03 19:21 | NUR ---
PT IS RESTING IN BED WITH FAMILY AT BEDSIDE. RESPIRATION IS EVEN AND UNLABORED, NO DISTRESS NOTED. BED IN THE LOWEST POSITION, LOCKED, AND CALL LIGHT WITHIN REACH. WILL CONTINUE TO MONITOR.
--- NOTE | 2019-01-03 19:44 | NUR ---
PATIENT IS IN STABLE CONDITION WITH NO S/S OF RESPIRATORY DISTRESS. NO PAIN VOICED. TELEMETRY APPLIED. FAMILY MEMBERS PRESENT IN ROOM. DRESSING TO BILATERAL FEET ARE DRY AND INTACT. CALL LIGHT IS WITHIN REACH, PATIENT INSTRUCTED TO CALL FOR ASSISTANCE NEEDED. BEDSIDE SHIFT REPORT GIVEN TO ONCOMING NURSE.
[2019-01-03] MEDS ORDERED: SODIUM CHLORIDE 0.9% 250ML 250 ML ONE (21:51)
[2019-01-04] VITALS (8 sets, daily range): BP systolic 128–187; BP diastolic 69–88
[2019-01-04] MEDS ORDERED: BISACODYL 5 MG TAB EC PO ONE ×6 (00:15→21:30)
[2019-01-04] MEDS ORDERED: SODIUM CHLORIDE 0.9% 250ML 250 ML ONE (01:36)
--- NOTE | 2019-01-04 04:58 | NUR ---
BLOOD TRANSFUSION COMPLETE AT 0425. NO BLOOD REACTION NOTED. WILL CONTINUE TO MONITOR.
[2019-01-04 05:41] LABS: BASOPHILS % 0.4 % (0.0-1.0); EOSINOPHILS # (AUTO) 0.2 (0.0-0.4); EOSINOPHILS % 1.7 % (0.0-6.0); HEMATOCRIT 24.8 % (38.2-49.6); HEMOGLOBIN 8.5 g/dL (14.0-18.0); LYMPHOCYTES # (AUTO) 1.4 (1.0-3.2); LYMPHOCYTES % 12.9 % (18.0-39.1); MEAN CORPUSCULAR HEMOGLOBIN 29.1 pg (28-32); MEAN CORPUSCULAR HGB CONC 34.3 g/dL (31-35); MEAN CORPUSCULAR VOLUME 84.9 fL (81-99); MONOCYTES # (AUTO) 0.9 (0.2-0.8); MONOCYTES % 8.4 % (4.4-11.3); NEUTROPHILS # (AUTO) 8.2 (2.1-6.9); NEUTROPHILS % 75.1 % (38.7-80.0); PLATELET COUNT 349 x10e3/uL (140-360); RED BLOOD COUNT 2.92 x10e6/uL (4.3-5.7); RED CELL DISTRIBUTION WIDTH 12.6 % (11.7-14.4)
[2019-01-04 06:07] LABS: ALBUMIN 2.2 g/dL (3.5-5.0); ALBUMIN/GLOBULIN RATIO 0.5 (0.8-2.0); ANION GAP 11.7 mmol/L (8-16); CALCIUM 8.5 mg/dL (8.4-10.2); CREATININE, SERUM 3.29 mg/dL (0.72-1.25); POTASSIUM 4.7 mmol/L (3.5-5.1)
--- NOTE | 2019-01-04 07:00 | NUR ---
PATIENT IS AWAKE AND IN STABLE CONDITION WITH NO S/S OF RESPIRATORY DISTRESS. PATIENT DENIES PAIN. DRESSING TO BILATERAL FEET ARE DRY AN INTACT. CALL LIGHT IS WITHIN REACH OF PATIENT- PATIENT INSTRUCTED TO CALL FOR ASSISTANCE NEEDED.
[2019-01-04] MEDS: INSULIN REGULAR, HUMAN 100 UNIT/1 ML 3ML VIAL SQ SCH ×4 (07:30→21:35)
[2019-01-04] MEDS: SODIUM BICARBONATE 650 MG TAB PO SCH ×2 (08:25→17:09)
[2019-01-04] MEDS: NIFEDIPINE CR 30 MG TAB PO SCH (08:25)
[2019-01-04] MEDS ORDERED: CEFEPIME HCL 1 GM VIAL IV SCH (09:00)
[2019-01-04] MEDS: COLLAGENASE OINTMENT 30 GM TUBE TP SCH (09:18)
[2019-01-04] MEDS: MUPIROCIN 2% OINT 22 GM TUBE TOP SCH (09:18)
[2019-01-04] MEDS: IRON SUCROSE 100 MG in SODIUM CHLORIDE 0.9% 100 ML 100 ML IV SCH (11:34)
[2019-01-04] MEDS: HYDRALAZINE HCL 20 MG/ML VIAL IV PRN (11:50)
--- NOTE | 2019-01-04 14:23 | NUR ---
DISCUSSED IN ROUNDS, PT HAS HAD 2ND DEBRIDEMENT ON BOTH FEET. PENDING PLAN FROM DOCTOR.
--- NOTE | 2019-01-04 16:48 | Progress Note ---
DATE: 01/04/2019 SUBJECTIVE: The patient at bedside, doing better. Denies any history of fever, chills, nausea, or vomiting. Still having some pain in the right lower extremity, but decreased. OBJECTIVE: VITAL SIGNS: Afebrile, pulse rate 87, respirations 20, blood pressure 163/72. EXTREMITIES: Ulcerations to both lower extremities, improving. Some granulation tissue noted to the ulcer of left foot. Necrosis still noted to the lateral aspect of the right foot, but it is better. Decreased foul smell, some drainage noted. Decreased cellulitis to the dorsal aspect of the right foot with bone exposed. LABORATORY DATA: White blood cell count of 10.88, hemoglobin going up to 8.5, hematocrit 24.8, platelet count of 349, blood glucose of 109. ASSESSMENT: Osteo with a grade 4 ulcer, right, healing slowly with a grade 2 ulcer, left, with diabetic neuropathy and cellulitis. PLAN: We will continue local wound care with Santyl followed by diluted wet-to-dry bilaterally. Continue cefepime IV piggyback. Continue offloading. Continue to treat conservatively. SONU Fair/GIOVANNA /[id number]
[2019-01-04] MEDS: CEFEPIME 1GM/NS 0.9% 50 ML 50 ML IV SCH (17:09)
--- NOTE | 2019-01-04 19:17 | NUR ---
PT IS RESTING IN BED. RESPIRATION IS EVEN AND UNLABORED, NO DISTRESS NOTED. BED IN THE LOWEST POSITION, LOCKED, BED ALARM ON, AND CALL LIGHT WITHIN REACH. WILL CONTINUE TO MONITOR.
--- NOTE | 2019-01-04 19:31 | NUR ---
PATIENT IS IN STABLE CONDITION WITH NO S/S OF RESPIRATORY DISTRESS. NO PAIN VOICED. DRESSING INTACT TO BOTH BILATERAL FEET. CALL LIGHT IS WITHIN REACH OF PATIENT- PATIENT INSTRUCTED TO CALL FOR ASSISTANCE NEEDED. BEDSIDE REPORT GIVEN TO ONCOMING NURSE.
[2019-01-04] MEDS ORDERED: PEG (High)/E-LYTE SOLN 4,000 ML BTL PO ONE (20:00)
[2019-01-05] VITALS: BP 128/73
--- NOTE | 2019-01-05 00:05 | NUR ---
PT REFUSE EGD AND COLONOSCOPY. DR BADILLO EXPLAIN TO PT THAT TO RULE OUT COLON CANCER HE WILL NEED THE PROCEDURE. PT STILL REFUSE. WILL CONTINUE TO MONITOR.
[2019-01-05 04:00] VITALS: BP 154/82
[2019-01-05] MEDS: INSULIN REGULAR, HUMAN 100 UNIT/1 ML 3ML VIAL SQ SCH ×4 (07:30→19:50)
[2019-01-05 08:00] VITALS: BP 174/85
[2019-01-05] MEDS ORDERED: BISACODYL 5 MG TAB EC PO ONE ×4 (08:00→09:30)
--- NOTE | 2019-01-05 08:00 | NUR ---
Dr. Fernandez spoke with night nurse this morning and states pt agreed to have EGD/Colonoscopy. Dr. Fernandez gave orders to start bowel prep and obtain informed consent.
[2019-01-05] MEDS: NIFEDIPINE CR 30 MG TAB PO SCH (08:45)
[2019-01-05] MEDS ORDERED: PEG (High)/E-LYTE SOLN 4,000 ML BTL PO ONE (10:00)
[2019-01-05] MEDS: MUPIROCIN 2% OINT 22 GM TUBE TOP SCH (10:01)
[2019-01-05] MEDS: COLLAGENASE OINTMENT 30 GM TUBE TP SCH (10:01)
[2019-01-05] MEDS: SODIUM BICARBONATE 650 MG TAB PO SCH ×2 (10:01→17:40)
[2019-01-05] MEDS ORDERED: CITRATE OF MAGNESIA 300ML BOTTLE PO ONE (11:40)
[2019-01-05 11:52] VITALS: BP 162/96
--- NOTE | 2019-01-05 12:00 | NUR ---
Spoke with Dr. Fernandez earlier this morning and let him know that pt is still not finished with bowel prep and has yet to have a bowel movement. Received orders to give mag citrate X1 bottle.
[2019-01-05] MEDS: DAPTOMYCIN 500mg 10ML 500 MG in SODIUM CHLORIDE 0.9% 100 ML IV SCH (13:00)
[2019-01-05] MEDS: IRON SUCROSE 100 MG in SODIUM CHLORIDE 0.9% 100 ML 100 ML IV SCH (13:17)
[2019-01-05 16:00] VITALS: BP 170/90
--- NOTE | 2019-01-05 16:00 | NUR ---
Spoke with Dr. Fernandez to let him know that pt bowel movements are still not clear and pt has not finished golitely. Dr. Fernandez states that he wants pt to finish golitely and he will see pt tonight with procedure to be done tomorrow.
[2019-01-05] MEDS: CEFEPIME 1GM/NS 0.9% 50 ML 50 ML IV SCH (17:40)
[2019-01-05] MEDS: HYDRALAZINE HCL 20 MG/ML VIAL IV PRN (17:41)
--- NOTE | 2019-01-05 19:00 | NUR ---
Patient visited in room during nursing rounds. Patient alert and oriented x3. Dressing on right foot and left foot appear clean and dry. Pt ambulatory with surgical shoes prn. Pt drinking golytely and aware scheduled for EGD and Colonoscopy tomorrow (01/06/19) by Dr. Huey Fernandez. Call bray within reach. Family at bedside visiting. Will monitor closely.
--- NOTE | 2019-01-05 20:00 | NUR ---
Patient still drinking remaining golytely. Pt states his last bowel movement tonight was turning clear. Informed pt on next bowel movement to call so nurse could see what stool looks like.
[2019-01-05 20:01] VITALS: BP 139/75
[2019-01-05] MEDS: ENALAPRIL MALEATE 10 MG TAB PO SCH (20:15)
--- NOTE | 2019-01-05 21:14 | Progress Note ---
DATE: 01/05/2019 Mr. Freeman is doing well. No complaints. He had a long discussion today about the pathophysiology of his disease and the fact that he could keep getting recurrent osteomyelitis. He does have severe diabetes, neuropathy. The patient is going to be discharged home with IV antibiotics, daptomycin at 4 mg/kg q.48h. and cefepime 1 g q.24h., plan of six weeks of IV antibiotic. We have provided the outpatient antibiotic. Please contact #[phone] before discharge. Discussed with the patient. MD SURESH Childress/MODL /[id number]
--- NOTE | 2019-01-05 21:15 | NUR ---
Patient had another loose bowel movement. Nurse (Russ) saw stool in toilet as clear yellow with soft brown stool sediments. Patient almost done drinking golytely.
[2019-01-06] VITALS (8 sets, daily range): BP systolic 115–190; BP diastolic 57–91
--- NOTE | 2019-01-06 | NUR ---
Dr. Huey Fernandez came and spoke with patient in room. MD aware pt having loose clear stool. MD decided ok for patient to have EGD and Colonoscopy in the morning (approximately around 1000).
[2019-01-06 04:21] LABS: BASOPHILS % 0.4 % (0.0-1.0); EOSINOPHILS # (AUTO) 0.2 (0.0-0.4); EOSINOPHILS % 1.7 % (0.0-6.0); HEMATOCRIT 24.8 % (38.2-49.6); HEMOGLOBIN 8.4 g/dL (14.0-18.0); LYMPHOCYTES # (AUTO) 1.4 (1.0-3.2); LYMPHOCYTES % 15.6 % (18.0-39.1); MEAN CORPUSCULAR HEMOGLOBIN 29.3 pg (28-32); MEAN CORPUSCULAR HGB CONC 33.9 g/dL (31-35); MEAN CORPUSCULAR VOLUME 86.4 fL (81-99); MONOCYTES # (AUTO) 0.8 (0.2-0.8); NEUTROPHILS # (AUTO) 6.6 (2.1-6.9); NEUTROPHILS % 71.9 % (38.7-80.0); PLATELET COUNT 302 x10e3/uL (140-360); RED BLOOD COUNT 2.87 x10e6/uL (4.3-5.7); RED CELL DISTRIBUTION WIDTH 12.6 % (11.7-14.4)
[2019-01-06 04:35] LABS: ANION GAP 14.1 mmol/L (8-16); CALCIUM 8.8 mg/dL (8.4-10.2); CREATININE, SERUM 3.35 mg/dL (0.72-1.25); POTASSIUM 5.1 mmol/L (3.5-5.1)
--- NOTE | 2019-01-06 05:03 | NUR ---
Dr. Nieves came and visited pt in room during rounds. MD aware of pt condition.
[2019-01-06] MEDS: INSULIN REGULAR, HUMAN 100 UNIT/1 ML 3ML VIAL SQ SCH ×4 (07:30→21:15)
[2019-01-06] MEDS: MUPIROCIN 2% OINT 22 GM TUBE TOP SCH (09:00)
[2019-01-06] MEDS: COLLAGENASE OINTMENT 30 GM TUBE TP SCH (09:00)
[2019-01-06] MEDS: SODIUM BICARBONATE 650 MG TAB PO SCH ×2 (09:00→16:19)
--- NOTE | 2019-01-06 09:21 | NUR ---
Pt was received in bed. Pt is aox4 and able to verbalize needs. Denies any pain at this time. Dressing to bilateral lower ext are dry and intact. Pt is NPO for EGD/colonoscopy. Received call from OR stating that pt will be going to OR at 1030.
[2019-01-06] MEDS: HYDRALAZINE HCL 20 MG/ML VIAL IV PRN (10:07)
[2019-01-06] MEDS: IRON SUCROSE 100 MG in SODIUM CHLORIDE 0.9% 100 ML 100 ML IV SCH (11:37)
--- NOTE | 2019-01-06 12:30 | NUR ---
Pt transferred to OR at this time for EGD/colonoscopy. Pt is aox4 and able to verbalize needs. Pt denies any pain at this time.
--- NOTE | 2019-01-06 16:00 | NUR ---
Pt returned from procedure at this time. Pt is aox4 and able to verbalize needs. Pt education provided for wound care to bilateral feet to pt and and both verbalized understanding of wound care instructions. Pt denies any pain at this time. Resumed previous orders for diet.
[2019-01-06] MEDS: NIFEDIPINE CR 30 MG TAB PO SCH (16:18)
--- NOTE | 2019-01-06 16:22 | NUR ---
Nutrition Screen Note RD Recommendation for Physician: Continue diet as ordered Plan of Care: RD following, monitoring for tolerance and adequacy Nutrition reason for involvement: LOS Primary Diagnose(s): right foot abscess PMH: T2DM, renal disease Ht:71 in Wt:220lb BMI:30.7 kg/m2 IBW:172lb RD Assessment: (01/06/2019) Chart reviewed. Labs and meds reviewed. Good PO intake/appetite. Denies any N,D,V nor has any difficulty chewing or swallowing. 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 Current Diet: Renal Malnutrition Evaluation (01/06/2019) The patient does not meet criteria for a specified degree of malnutrition at this time. Will re-evaluate at follow-up as appropriate. Diet Education Needs Assessment: Diet education not indicated. Nutrition Care Level: Low Signed: Rasta Gleason RD, LD, [facility]
[2019-01-06] MEDS ORDERED: PROPOFOL IV EMULSION 10 MG/ML 50 ML VIAL ONE (18:24)
[2019-01-06] MEDS ORDERED: LIDOCAINE HCL 2% LOCAL INJ 5 ML SDV VIAL INJ ONE (18:24)
[2019-01-06] MEDS ORDERED: HYOSCYAMINE SULFATE 0.5 MG/ML INJ ONE (18:24)
[2019-01-06] MEDS ORDERED: FENTANYL CITRATE/PF 100MCG/2 ML INJ ONE (18:35)
[2019-01-06] MEDS ORDERED: MIDAZOLAM HCL 2 MG/2 ML VIAL ONE (18:35)
[2019-01-06] MEDS: CEFEPIME 1GM/NS 0.9% 50 ML 50 ML IV SCH (19:15)
[2019-01-06] MEDS: ENALAPRIL MALEATE 10 MG TAB PO SCH (21:15)
[2019-01-07] VITALS: BP 105/58
[2019-01-07 04:00] VITALS: BP 168/82
--- NOTE | 2019-01-07 06:15 | Operative Report ---
DATE OF PROCEDURE: 01/06/2019 SURGEON: Huey Fernandez MD PROCEDURE: EGD with biopsies and colonoscopy with polypectomy. INDICATIONS FOR EGD: Anemia. INDICATIONS FOR COLONOSCOPY: Anemia. MEDICATIONS: The patient was done under MAC. Please see anesthesiologist's note. PROCEDURE IN DETAIL: With the patient in left lateral decubitus position, flexible fiberoptic Olympus gastroscope was introduced into the esophagus under direct visualization without any difficulty. The esophagus appeared to be within normal limits. The scope was then advanced with ease into the stomach. Mucosa overlying the antrum and the body revealed some patchy erythema and low-grade edema and biopsies were obtained and sent to stain for H. pylori. Pylorus appeared to be of normal contour and shape. He was intubated with ease and the scope was advanced into the second portion of the duodenum. Biopsies were obtained from the second portion and duodenal bulb to rule out sprue. The scope was then withdrawn back into the stomach and retroflexed. Mucosa overlying the fundus and cardia appeared to be within normal limits. The scope was then straightened out. The stomach was decompressed. The scope was subsequently withdrawn. The patient tolerated procedure well. IMPRESSION: 1. Normal esophagus. 2. Gastritis, biopsied, biopsies sent to stain for H. pylori. 3. Rule out sprue. PLAN: Follow up histology. Initiate Protonix 40 mg one p.o. q.a.m. a.c. The patient was then turned around. After adequate lubrication of the anal canal, a flexible fiberoptic Olympus colonoscope was inserted into the rectum with ease and advanced all the way to the cecum. The scope was then withdrawn slowly. Mucosa overlying the cecum appeared to be within normal limits. An approximately 1 cm sessile polyp was removed per snare electrocautery from the distal ascending colon and additional minute polyp was removed per cold snare. The hot snare polypectomy site was hemoclipped x1. The transverse appeared to be within normal limits. One polyp was removed per cold snare polypectomy from the descending colon. The sigmoid appeared to be within normal limits. One polyp was removed per cold snare polypectomy from the rectum. The scope was then retroflexed into the distal rectum and small internal hemorrhoids were noted, none of which was actively bleeding. The scope was then straightened out. It was subsequently withdrawn. The patient tolerated the procedure well. IMPRESSION: 1. Ascending colon polyps x2, one hot snared and site hemoclipped, and one was removed per cold snare polypectomy. 2. Descending colon polyp, removed per cold snare polypectomy. 3. Rectal polyp, removed per cold snare polypectomy. 4. Internal hemorrhoids, none actively bleeding. PLAN: Follow up histology. Resume ADA diet. The patient might benefit from a followup colonoscopy in 3 years. Huey Fernandez MD [place]/MODL /[id number] cc: Brennan Nieves MD
[2019-01-07] MEDS ORDERED: PANTOPRAZOLE SOD 40 MG TABEC PO SCH (07:30)
[2019-01-07] MEDS: INSULIN REGULAR, HUMAN 100 UNIT/1 ML 3ML VIAL SQ SCH (07:30)
[2019-01-07 07:50] VITALS: BP 178/83
[2019-01-07 08:00] VITALS: BP 178/83
[2019-01-07] MEDS: MUPIROCIN 2% OINT 22 GM TUBE TOP SCH (08:03)
[2019-01-07] MEDS: SODIUM BICARBONATE 650 MG TAB PO SCH (08:03)
[2019-01-07] MEDS: NIFEDIPINE CR 30 MG TAB PO SCH (08:03)
[2019-01-07] MEDS: COLLAGENASE OINTMENT 30 GM TUBE TP SCH (08:04)
[2019-01-07] MEDS ORDERED: NIFEDIPINE ER60 MG PO (09:36)
[2019-01-07] MEDS ORDERED: PANTOPRAZOLE SO40 MG PO (09:36)
[2019-01-07 11:51] VITALS: BP 146/75
--- NOTE | 2019-01-07 14:00 | NUR ---
Pt discharged at this time to home. Pt will continue on IV ABT therapy outpt status with Dr. Valdes. Pt education done with family and pt related to wound care, diet and follow ups. Pt verbalized understanding of all discharge instructions. Pt is denies any pain at this time.
--- NOTE | 2019-01-10 05:18 | Discharge Summary ---
DISCHARGE DIAGNOSES: 1. Osteomyelitis of the right foot. 2. Chronic kidney disease, stage 3 to 4. 3. Diabetes. 4. Hypertension. 5. Colon polyps, status post removal. 6. Anemia, status post transfusion. HISTORY OF PRESENT ILLNESS AND HOSPITAL COURSE: See hospital chart for full details. The patient is a gentleman with a history of chronic kidney disease, stage 3 to 4, hypertension, diabetes, last A1c was 6.3, who presented with right foot pain and ulceration, where he does have a right foot osteomyelitis to his body and had some debridement by Podiatry. He was placed on IV antibiotics by Dr. Valdes and he was also seen by Renal for his chronic kidney disease stage 3 to 4. Of note, he also has some degrees of anemia and so he was seen by Dr. Huey Fernandez, who did a colonoscopy and found a couple of colon polyps that were removed and at the time of discharge, the patient was feeling really good. He had outpatient IV antibiotics set up for 6 to 8 weeks. He is to call me in 2 to 3 weeks. The patient was given a long discussion and he has to maintain good blood pressure control and sugar control that if he wants to avoid dialysis in the future, but he understands with years of noncompliance, he starting to catch up those. Please see hospital chart for full details. MD YESY Negron/GIOVANNA /[id number]
== END 2019-01-07 14:05 | disposition home or self-care (01) | DRG 853 ==
LOC: ER 14:24 → ERHOLD 18:12 → MED/SURG3 21:03
PROVIDERS: ADMIT Internal Medicine; ATTEND Internal Medicine
PROC: 0J9Q0ZZ Drainage of Right Foot Subcutaneous Tissue and Fascia, Open Approach (ICD-10-PCS; principal; 2019-01-01)
PROC: 0KBV0ZZ Excision of Right Foot Muscle, Open Approach (ICD-10-PCS; 2019-01-03)
PROC: 0JBR0ZZ Excision of Left Foot Subcutaneous Tissue and Fascia, Open Approach (ICD-10-PCS; 2019-01-03)
PROC: 02HV33Z Insertion of Infusion Device into Superior Vena Cava, Percutaneous Approach (ICD-10-PCS; 2019-01-03)
PROC: B548ZZA Ultrasonography of Superior Vena Cava, Guidance (ICD-10-PCS; 2019-01-03)
PROC: 30233N1 Transfusion of Nonautologous Red Blood Cells into Peripheral Vein, Percutaneous Approach (ICD-10-PCS; 2019-01-03)
PROC: 0DB68ZX Excision of Stomach, Via Natural or Artificial Opening Endoscopic, Diagnostic (ICD-10-PCS; 2019-01-06)
PROC: 0DBK8ZX Excision of Ascending Colon, Via Natural or Artificial Opening Endoscopic, Diagnostic (ICD-10-PCS; 2019-01-06)
PROC: 0DBP8ZX Excision of Rectum, Via Natural or Artificial Opening Endoscopic, Diagnostic (ICD-10-PCS; 2019-01-06)
PROC: 0DBM8ZX Excision of Descending Colon, Via Natural or Artificial Opening Endoscopic, Diagnostic (ICD-10-PCS; 2019-01-06)
DX: A41.9 Sepsis, unspecified organism (principal); N17.0 Acute kidney failure with tubular necrosis; L02.611 Cutaneous abscess of right foot; L97.419 Non-pressure chronic ulcer of right heel and midfoot with unspecified severity; L97.411 Non-pressure chronic ulcer of right heel and midfoot limited to breakdown of skin; L03.115 Cellulitis of right lower limb; M86.8X7 Other osteomyelitis, ankle and foot; N17.9 Acute kidney failure, unspecified; L97.421 Non-pressure chronic ulcer of left heel and midfoot limited to breakdown of skin; N18.4 Chronic kidney disease, stage 4 (severe); Z82.49 Family history of ischemic heart disease and other diseases of the circulatory system; E11.621 Type 2 diabetes mellitus with foot ulcer; E11.22 Type 2 diabetes mellitus with diabetic chronic kidney disease; D63.1 Anemia in chronic kidney disease; E11.628 Type 2 diabetes mellitus with other skin complications; E87.5 Hyperkalemia; I12.9 Hypertensive chronic kidney disease with stage 1 through stage 4 chronic kidney disease, or unspecified chronic kidney disease; E11.42 Type 2 diabetes mellitus with diabetic polyneuropathy; E11.69 Type 2 diabetes mellitus with other specified complication; K29.70 Gastritis, unspecified, without bleeding; K63.5 Polyp of colon; K62.1 Rectal polyp; K64.8 Other hemorrhoids; B96.20 Unspecified Escherichia coli [E. coli] as the cause of diseases classified elsewhere; B95.2 Enterococcus as the cause of diseases classified elsewhere; R53.81 Other malaise
CPT/HCPCS: 36415; 36556; 43239; 45385; 74470; 76770; 76937; 77001; 80048; 80053; 82728; 82948; 83540; 83735; 84466; 84550; 85025; 86850; 86900; 86920; 87040; 87071; 87186; 87205; 88305; 88312; 93005; 99284; J0360; J0692; J1756; J1980; J2001; J2020; J2250; J2270; J2543; J3370; J7030; J7050; J7070; P9016

== ENCOUNTER → 2019-01-01 | Outpatient (CLI) | payer BC ==
[~2019-01-01] MED LIST changes: +COLLAGENASE OINTMENT 30 GM TUBE ONE; +LIDOCAINE/PRILOCAINE 2.5-2.5% KIT ONE; +NIFEDIPINE ER60 MG PO; +PANTOPRAZOLE SO40 MG PO
== END ==
LOC: WCC 02:00
PROVIDERS: ATTEND Podiatrist Foot & Ankle Surgery
DX: E11.621 Type 2 diabetes mellitus with foot ulcer (principal); M86.172 Other acute osteomyelitis, left ankle and foot; L97.529 Non-pressure chronic ulcer of other part of left foot with unspecified severity; L97.411 Non-pressure chronic ulcer of right heel and midfoot limited to breakdown of skin; L84 Corns and callosities; I10 Essential (primary) hypertension; Z01.810 Encounter for preprocedural cardiovascular examination; Z01.811 Encounter for preprocedural respiratory examination
CPT/HCPCS: 36415; 82948

== ENCOUNTER → 2019-01-08 | Outpatient (CLI) | payer BC ==
[~2019-01-08] MED LIST changes: +NIFEDIPINE ER60 MG PO; +PANTOPRAZOLE SO40 MG PO
== END ==
LOC: WCC 13:27
PROVIDERS: ATTEND Podiatrist Foot & Ankle Surgery
DX: E11.621 Type 2 diabetes mellitus with foot ulcer (principal); M86.172 Other acute osteomyelitis, left ankle and foot; L97.429 Non-pressure chronic ulcer of left heel and midfoot with unspecified severity; L97.411 Non-pressure chronic ulcer of right heel and midfoot limited to breakdown of skin; I10 Essential (primary) hypertension; Z01.810 Encounter for preprocedural cardiovascular examination; Z01.811 Encounter for preprocedural respiratory examination

== ENCOUNTER → 2019-01-09 | Outpatient (CLI) | payer BC | LOC: WCC 09:49 | PROVIDERS: ATTEND Internal Medicine Pulmonary Disease | DX: E11.621 Type 2 diabetes mellitus with foot ulcer (principal); M86.172 Other acute osteomyelitis, left ankle and foot; M86.18 Other acute osteomyelitis, other site; L97.429 Non-pressure chronic ulcer of left heel and midfoot with unspecified severity; L97.411 Non-pressure chronic ulcer of right heel and midfoot limited to breakdown of skin; I10 Essential (primary) hypertension; D50.9 Iron deficiency anemia, unspecified; N28.9 Disorder of kidney and ureter, unspecified; Z01.810 Encounter for preprocedural cardiovascular examination; Z01.811 Encounter for preprocedural respiratory examination ==

== ENCOUNTER → 2019-01-09 | Outpatient (CLI) | payer BC, SELFPAY | LOC: WCC 02:00 | PROVIDERS: ATTEND Podiatrist Foot & Ankle Surgery | DX: E11.621 Type 2 diabetes mellitus with foot ulcer (principal); M86.18 Other acute osteomyelitis, other site; M86.172 Other acute osteomyelitis, left ankle and foot; L97.429 Non-pressure chronic ulcer of left heel and midfoot with unspecified severity; L97.411 Non-pressure chronic ulcer of right heel and midfoot limited to breakdown of skin; N28.9 Disorder of kidney and ureter, unspecified; I10 Essential (primary) hypertension; D50.9 Iron deficiency anemia, unspecified; Z01.810 Encounter for preprocedural cardiovascular examination; Z01.811 Encounter for preprocedural respiratory examination ==

== ENCOUNTER → 2019-01-10 | Outpatient (CLI) | payer BC ==
--- NOTE | 2019-01-10 10:14 | Diagnostic Imaging Report ---
EXAM: CHEST 2 VIEWS, PA and lateral DATE: 01/10/2019 Time stamp on exam: 9:12 AM INDICATION: Preoperative for cardiac evaluation COMPARISON: None FINDINGS: LINES/TUBES: Right IJ central line in place in appropriate location. LUNGS: No consolidations or edema. PLEURA: No effusions or pneumothorax. HEART AND MEDIASTINUM: Normal size and contour. BONES AND SOFT TISSUES: No acute findings. Old left-sided rib fracture. IMPRESSION: No acute thoracic abnormality. Signed by: Dr. Emanuel Llanes DO on 01/10/2019 10:11 AM
== END ==
LOC: RAD 08:42
PROVIDERS: ATTEND Internal Medicine Pulmonary Disease
DX: E11.621 Type 2 diabetes mellitus with foot ulcer (principal); L97.411 Non-pressure chronic ulcer of right heel and midfoot limited to breakdown of skin; Z01.810 Encounter for preprocedural cardiovascular examination
CPT/HCPCS: 71046

== ENCOUNTER → 2019-01-22 | Outpatient (CLI) | payer SELFPAY | LOC: WCC 15:36 | PROVIDERS: ATTEND Podiatrist Foot & Ankle Surgery | DX: E11.621 Type 2 diabetes mellitus with foot ulcer (principal); M86.172 Other acute osteomyelitis, left ankle and foot; M86.18 Other acute osteomyelitis, other site; L97.429 Non-pressure chronic ulcer of left heel and midfoot with unspecified severity; L97.411 Non-pressure chronic ulcer of right heel and midfoot limited to breakdown of skin; I10 Essential (primary) hypertension; N28.9 Disorder of kidney and ureter, unspecified; D50.9 Iron deficiency anemia, unspecified; Z01.810 Encounter for preprocedural cardiovascular examination; Z01.811 Encounter for preprocedural respiratory examination ==

== ENCOUNTER → 2019-01-29 | Outpatient (CLI) | payer BC ==
[~2019-01-29] MED LIST changes: +COLLAGENASE OINTMENT 30 GM TUBE ONE
[2019-01-29 15:30] LABS: BASOPHILS % 0.5 % (0.0-1.0); EOSINOPHILS # (AUTO) 0.1 (0.0-0.4); EOSINOPHILS % 1.6 % (0.0-6.0); HEMATOCRIT 24.6 % (38.2-49.6); HEMOGLOBIN 8.4 g/dL (14.0-18.0); LYMPHOCYTES # (AUTO) 1.3 (1.0-3.2); LYMPHOCYTES % 23.5 % (18.0-39.1); MEAN CORPUSCULAR HEMOGLOBIN 29.7 pg (28-32); MEAN CORPUSCULAR HGB CONC 34.1 g/dL (31-35); MEAN CORPUSCULAR VOLUME 86.9 fL (81-99); MONOCYTES # (AUTO) 0.6 (0.2-0.8); MONOCYTES % 10.1 % (4.4-11.3); NEUTROPHILS # (AUTO) 3.5 (2.1-6.9); NEUTROPHILS % 63.6 % (38.7-80.0); PLATELET COUNT 241 x10e3/uL (140-360); RED BLOOD COUNT 2.83 x10e6/uL (4.3-5.7); RED CELL DISTRIBUTION WIDTH 13.1 % (11.7-14.4)
[2019-01-29 15:52] LABS: ALBUMIN 2.9 g/dL (3.5-5.0); ALBUMIN/GLOBULIN RATIO 0.8 (0.8-2.0); ANION GAP 14.5 mmol/L (8-16); CALCIUM 8.5 mg/dL (8.4-10.2); CREATININE, SERUM 3.5 mg/dL (0.72-1.25)
[2019-01-29 15:54] LABS: POTASSIUM 5.5 mmol/L (3.5-5.1)
== END ==
LOC: WCC 13:45
PROVIDERS: ATTEND Podiatrist Foot & Ankle Surgery
DX: E11.621 Type 2 diabetes mellitus with foot ulcer (principal); M86.172 Other acute osteomyelitis, left ankle and foot; M86.18 Other acute osteomyelitis, other site; L97.429 Non-pressure chronic ulcer of left heel and midfoot with unspecified severity; L97.411 Non-pressure chronic ulcer of right heel and midfoot limited to breakdown of skin; I10 Essential (primary) hypertension; D50.9 Iron deficiency anemia, unspecified; N28.9 Disorder of kidney and ureter, unspecified; Z01.810 Encounter for preprocedural cardiovascular examination; Z01.811 Encounter for preprocedural respiratory examination
CPT/HCPCS: 36415; 80053; 82948; 83036; 84134; 85025; 85651

== ENCOUNTER → 2019-02-02 | Outpatient (CLI) | payer BC ==
[~2019-02-02] MED LIST changes: -COLLAGENASE OINTMENT 30 GM TUBE ONE
== END ==
LOC: CARD 09:45
PROVIDERS: ATTEND Internal Medicine Pulmonary Disease
DX: E11.621 Type 2 diabetes mellitus with foot ulcer (principal); L97.411 Non-pressure chronic ulcer of right heel and midfoot limited to breakdown of skin; Z01.810 Encounter for preprocedural cardiovascular examination
CPT/HCPCS: 93306; 93922; 93925

== ENCOUNTER → 2019-02-05 | Outpatient (CLI) | payer BC | LOC: WCC 01:00 | PROVIDERS: ATTEND Podiatrist Foot & Ankle Surgery | DX: E11.621 Type 2 diabetes mellitus with foot ulcer (principal); M86.172 Other acute osteomyelitis, left ankle and foot; M86.18 Other acute osteomyelitis, other site; L97.429 Non-pressure chronic ulcer of left heel and midfoot with unspecified severity; L97.411 Non-pressure chronic ulcer of right heel and midfoot limited to breakdown of skin; N28.9 Disorder of kidney and ureter, unspecified; I10 Essential (primary) hypertension; D50.9 Iron deficiency anemia, unspecified; Z01.810 Encounter for preprocedural cardiovascular examination; Z01.811 Encounter for preprocedural respiratory examination ==

== ENCOUNTER → 2019-02-09 | Outpatient (CLI) | payer BC | LOC: WCC 12:20 | PROVIDERS: ATTEND Podiatrist Foot & Ankle Surgery | DX: E11.621 Type 2 diabetes mellitus with foot ulcer (principal); M86.18 Other acute osteomyelitis, other site; M86.172 Other acute osteomyelitis, left ankle and foot; L97.429 Non-pressure chronic ulcer of left heel and midfoot with unspecified severity; L97.411 Non-pressure chronic ulcer of right heel and midfoot limited to breakdown of skin; N28.9 Disorder of kidney and ureter, unspecified; I10 Essential (primary) hypertension; D50.9 Iron deficiency anemia, unspecified; Z01.810 Encounter for preprocedural cardiovascular examination; Z01.811 Encounter for preprocedural respiratory examination | CPT/HCPCS: 87071; 87075; 87186; 87205 ==

== ENCOUNTER 2019-02-12 13:54 | Inpatient (IN) | payer BC ==
[~2019-02-12] VITALS: Ht 180.3 cm; Wt 99.8 kg
--- NOTE | 2019-02-12 14:30 | NUR ---
PT HAS WOUNDS TO BILATERAL FEET
[2019-02-12 14:36] LABS: BASOPHILS % 0.2 % (0.0-1.0); EOSINOPHILS % 0.3 % (0.0-6.0); HEMATOCRIT 21.9 % (38.2-49.6); HEMOGLOBIN 7.6 g/dL (14.0-18.0); LYMPHOCYTES % 8.3 % (18.0-39.1); MEAN CORPUSCULAR HGB CONC 34.7 g/dL (31-35); MEAN CORPUSCULAR VOLUME 86.6 fL (81-99); MONOCYTES # (AUTO) 1.5 (0.2-0.8); MONOCYTES % 12.1 % (4.4-11.3); NEUTROPHILS # (AUTO) 9.5 (2.1-6.9); NEUTROPHILS % 78.5 % (38.7-80.0); PLATELET COUNT 247 x10e3/uL (140-360); RED BLOOD COUNT 2.53 x10e6/uL (4.3-5.7); RED CELL DISTRIBUTION WIDTH 13.1 % (11.7-14.4)
[2019-02-12 14:57] LABS: ALBUMIN 2.7 g/dL (3.5-5.0); ALBUMIN/GLOBULIN RATIO 0.6 (0.8-2.0); ANION GAP 13.9 mmol/L (8-16); CALCIUM 8.8 mg/dL (8.4-10.2); CREATININE, SERUM 3.75 mg/dL (0.72-1.25); POTASSIUM 4.9 mmol/L (3.5-5.1)
[2019-02-12] MEDS ORDERED: SODIUM CHLORIDE 0.9% 1000ML 1,000 ML IV STA (16:22)
[2019-02-12] MEDS ORDERED: MEROPENEM 1GM 100 ML IV STA (16:22)
[2019-02-12] MEDS ORDERED: ACETAMINOPHEN 325 MG TAB PO STA (16:22)
[2019-02-12] MEDS ORDERED: VANCOMYCIN 1GM/NS 250 ML 250 ML IV ONE (17:00)
[2019-02-12 17:09] LABS: BILIRUBIN,URINE NEGATIVE (NEGATIVE); CLARITY,URINE CLEAR (CLEAR); COLOR,URINE YELLOW (YELLOW); KETONES,URINE NEGATIVE (NEGATIVE); LEUKOCYTE ESTERASE ,URINE NEGATIVE (NEGATIVE); NITRITE,URINE NEGATIVE (NEGATIVE); URINE UROBILINOGEN 0.2 mg/dL (0.2 - 1)
[2019-02-12 17:10] LABS: PROTEIN,URINE DIPSTICK 2+ (NEGATIVE)
[2019-02-12 17:19] LABS: BACTERIA,URINE FEW /HPF; RBC,URINE 0-5 /HPF (0-5)
--- NOTE | 2019-02-12 17:51 | Diagnostic Imaging Report ---
EXAMINATION: CHEST 2 VIEWS INDICATION: Fever COMPARISON: Chest radiograph of 01/10/2019 FINDINGS: TUBES and LINES: Right PICC line terminates in the region of the superior cavoatrial junction. LUNGS: The lungs are moderately inflated. No focal consolidation or pulmonary edema. PLEURA: No pleural effusion or pneumothorax. HEART AND MEDIASTINUM: The cardiomediastinal silhouette is stable in size and contour. BONES AND SOFT TISSUES: No acute fracture or dislocation. UPPER ABDOMEN: No free air under the diaphragm. IMPRESSION: No focal pneumonia or pulmonary edema. Signed by: Sona Berry MD on 02/12/2019 5:47 PM
[2019-02-12] MEDS ORDERED: MORPHINE SULFATE 2 MG/ML SYR 1ML IV PRN (18:15)
[2019-02-12] MEDS ORDERED: GENTAMICIN 80MG/NS IV ONE (18:15)
[2019-02-12] MEDS ORDERED: DEXTROSE 50% SYRINGE 50 ML IV PRN (18:15)
[2019-02-12] MEDS ORDERED: ZOLPIDEM TARTRATE 5 MG TAB PO PRN (18:15)
[2019-02-12] MEDS ORDERED: HYDRALAZINE HCL 20 MG/ML VIAL IV PRN (18:15)
[2019-02-12] MEDS ORDERED: DIPHENHYDRAMINE HCL INJ 50 MG/ML VIAL IV PRN (18:15)
[2019-02-12] MEDS ORDERED: GENTAMICIN 80MG/NS 100 ML 100 ML IV ONE (18:30)
[2019-02-12] MEDS ORDERED: MORPHINE SULFATE INJ 4 MG/ML INJ 1ML IV PRN (18:30)
[2019-02-12 20:00] VITALS: BP 136/65
[2019-02-12 20:05] VITALS: BP 136/65
--- NOTE | 2019-02-12 20:10 | NUR ---
PATIENT RECEIVED. PATIENT IS AAOX3. RESP EVEN AND UNLABORED. RIGHT LATERAL FOOT ULCER NOTED. PATIENT STATED HE HAD BEEN HAVING THE WOUND ABOUT A MONTH AGO. LEFT FOOT METATARSAL WOUND NOTED. RIGHT IJ TRIPLE LUMEN NOTED, DRY AND INTACT. ORIENTED TO ROOM. CALL LIGHT WITHIN REACH. BED LOW/LOCKED. CONTINUE TO MONITOR CLOSELY
[2019-02-12 21:00] VITALS: BP 136/65
[2019-02-12] MEDS: INSULIN REGULAR, HUMAN 100 UNIT/1 ML 3ML VIAL SQ SCH (21:00)
--- NOTE | 2019-02-12 21:10 | NUR ---
ADINA MONSON (DR VIERA'S OFFSET PRINTING OPERATOR) ROUNDED. OFFSET PRINTING OPERATOR ORDERED TO HOLD PICC LINE INSERTION UNTIL BLOOD CULTURE RESULT BACK.
[2019-02-12] MEDS ORDERED: SODIUM CHLORIDE 0.9% IV SCH (22:00)
[2019-02-12] MEDS ORDERED: DAPTOMYCIN IV SCH (22:00)
[2019-02-12] MEDS: PIPER-TAZ 3.375 GM 50 ML IV SCH (22:07)
[2019-02-12] MEDS ORDERED: SODIUM CHLORIDE 0.9% 250ML 250 ML ONE (22:09)
[2019-02-13] VITALS (8 sets, daily range): BP systolic 103–170; BP diastolic 59–79
[2019-02-13] MEDS: ONDANSETRON HCL INJ 2MG/ML 2ML 2 MG/ML VIAL IV PRN ×2 (00:35→08:16)
[2019-02-13] MEDS: CLONIDINE HCL 0.2 MG TAB PO PRN (01:03)
[2019-02-13] MEDS: ACETAMINOPHEN 325 MG TAB PO PRN ×3 (01:03→21:30)
--- NOTE | 2019-02-13 04:18 | Consultation ---
DATE OF CONSULTATION: 02/12/2019 Infectious Disease Initial Consultation DICTATED FOR: Sheldon Rader M.D. CONSULTING PHYSICIAN: Brennan Nieves MD REASON FOR CONSULTATION: Cellulitis and polymicrobial infection to diabetic foot ulcer, right foot; leukocytosis; and sepsis. HISTORY OF PRESENT ILLNESS: This is a 44-year-old male with past medical history of hypertension; diabetes mellitus, type 2; according to patient, recent hemoglobin A1c of 7; chronic kidney disease, stage 3, which was developed over the 2 to 3 years according to the patient; as well as anemia; repeated left foot and right foot diabetic ulcers and left foot with chronic osteomyelitis. He presented to [facility] Emergency Room as directed by wound clinic nurses for complaints of fever, chills, and shaking and overall not feeling well over the past 2 days. Fever at home was 101. He also had a constant cough with nausea and redness to right foot that was beginning to become hot to touch. According to the patient, he has been previously treated with IV antibiotics with use of a right IJ central line, but he has been off antibiotics for 2 weeks after having a situation with prior physician and loss of insurance. Upon presentation to the emergency room, he had a temperature of 100.5 degrees Fahrenheit. He complains of loss of appetite, muscle aches, fatigue, cough, decreased oral intake and again redness and warmth to the right foot. He denies any chest pain, dyspnea, diarrhea, altered mental status, or decreased urine output. PAST MEDICAL HISTORY: See HPI. MEDICATIONS: See MAR. ALLERGIES: NO KNOWN DRUG ALLERGIES. SOCIAL HISTORY: Denies tobacco, EtOH, or illicit drug use. REVIEW OF SYSTEMS: 14-point review of systems was conducted. See HPI for positives, otherwise, negative. PHYSICAL EXAMINATION: VITAL SIGNS: Currently, temperature of 99.3, blood pressure 144/72, respirations 18, and pulse 93. GENERAL: He is awake, alert, and oriented to x3, and appears in no acute distress. Family is at bedside. HEENT: Head, normocephalic, atraumatic. PERRLA. Extraocular movements intact. Moist mucous membranes. NECK: Supple. No lymphadenopathy. Right IJ according to nursing staff 2 of the 3 lines are occluded. CARDIOVASCULAR: Regular rate and rhythm. Normal S1 and S2. LUNGS: Clear to auscultation bilaterally. ABDOMEN: Soft, nontender. Bowel sounds present x4. No guarding noted. SKIN: Again, right lower extremity, right foot with cellulitis, area marked, there is swelling, malodor to the lateral ulcer, as well as foot is hot to touch. Wound is approximately 10 x 3 x 3 cm with 100% soft wound base and does probe to bone most specifically at the fifth metatarsal head. Also, there is a wound on the left plantar foot near the base of the fifth metatarsal. Wound approximately measures 2 x 0.6 x 0.5 cm with granular wound base. No periwound erythema. This one does not appears to be infected. NEUROVASCULAR: Alert and oriented x3. Nonfocal. Cranial nerves 2 through 12 grossly intact. LABORATORY DATA: Currently labs taken today, WBC is 12.1, hemoglobin 7.6, hematocrit 21.9 and platelets of 247. Sodium 133, potassium 4.9, chloride 107, bicarb 17, BUN of 58, creatinine 3.75, total bilirubin 0.7, alk phos of 77, ALT of 8, AST of 11. ESR 140, CRP is pending and lactic acid is 6.5. Wound culture obtained in a wound clinic on 02/09/2019, shows on the right foot, it is growing pseudomonas aeruginosa, staph aureus and klebsiella pneumoniae. No current radiology studies on chart other than chest x-ray today, which was clear. ASSESSMENT: 1. Right foot polymicrobial infection, diabetic foot ulcer. 2. Cellulitis of the right foot. 3. Possible line infection. 4. Nbtfa-fe-otmsanh osteomyelitis. 5. Leukocytosis. 6. Acute kidney injury on chronic kidney disease, stage 3 to 4. 7. Sepsis secondary to above. PLAN AND RECOMMENDATIONS: The patient was given looks like 1 time doses of vancomycin in emergency room as well as gentamycin in the emergency room as well as meropenem in the emergency room today. We will start the patient on daptomycin 6 mg/kg q.48 hours due to his creatinine and we will start the patient on Zosyn 3.375 mg IV q.8 hours. We will order MRI of the right foot without contrast to assess for any abscess to osteomyelitis. We will consult the patient's regular burn nurse, Dr. Elsy Gay. The patient will most likely need surgical intervention with debridement. Blood cultures have already been obtained and are currently pending. Wound Care consulted. The patient will need another IV line. We will DC right IJ once another central line is placed. Further recommendations to follow based on patient clinical course. Case was discussed with Dr. Rader over the phone as well as Dr. Chua. Dr. Rader will see the patient in the morning. Thank you, Dr. Nieves for the consultation. We will follow the patient along with you. Dictated by Luis Antonio Horne NP MD KETURAH Rabago/GIOVANNA /[id number]
[2019-02-13 05:08] LABS: BASOPHILS % 0.3 % (0.0-1.0); EOSINOPHILS % 0.3 % (0.0-6.0); HEMATOCRIT 19.5 % (38.2-49.6); LYMPHOCYTES # (AUTO) 1.1 (1.0-3.2); LYMPHOCYTES % 10.7 % (18.0-39.1); MEAN CORPUSCULAR HEMOGLOBIN 29.4 pg (28-32); MEAN CORPUSCULAR HGB CONC 33.3 g/dL (31-35); MEAN CORPUSCULAR VOLUME 88.2 fL (81-99); MONOCYTES # (AUTO) 1.6 (0.2-0.8); MONOCYTES % 15.2 % (4.4-11.3); NEUTROPHILS # (AUTO) 7.5 (2.1-6.9); NEUTROPHILS % 72.9 % (38.7-80.0); PLATELET COUNT 193 x10e3/uL (140-360); RED BLOOD COUNT 2.21 x10e6/uL (4.3-5.7); RED CELL DISTRIBUTION WIDTH 13.1 % (11.7-14.4)
[2019-02-13 05:18] LABS: HEMOGLOBIN 6.5 g/dL (14.0-18.0)
[2019-02-13 05:22] LABS: ANION GAP 11.3 mmol/L (8-16); CALCIUM 8.4 mg/dL (8.4-10.2); CREATININE, SERUM 3.72 mg/dL (0.72-1.25); POTASSIUM 5.3 mmol/L (3.5-5.1)
[2019-02-13] MEDS: PIPER-TAZ 3.375 GM 50 ML IV SCH ×3 (05:44→22:50)
--- NOTE | 2019-02-13 05:53 | NUR ---
RECEIVED CRITICAL LAB HBG 6.5, NOTIFIED DR LEWIS. NEW ORDER RECEIVED FOR ONE UNIT OF BLOOD TO BE GIVEN
[2019-02-13] MEDS ORDERED: SODIUM CHLORIDE 0.9% 250ML 250 ML IV ONE (06:00)
--- NOTE | 2019-02-13 06:01 | NUR ---
PAGED DR MYLES FOR RENAL CONSULT
[2019-02-13 06:22] LABS: BAND NEUTROPHILS % (MANUAL) 3 %; LYMPHOCYTES % (MANUAL) 13 % (19-48); MONOCYTES % (MANUAL) 16 % (3.4-9.0); NEUTROPHILS % (MANUAL) 68 % (40-74); PLATELET ESTIMATE ADEQUATE; PLATELET MORPHOLOGY COMMENT NORMAL; RBC MORPHOLOGY COMMENT NORMAL
[2019-02-13] MEDS ORDERED: SOD POLYSTYRENE SULFONATE SUSP 15 GM/60 ML BTL PO NR (07:00)
--- NOTE | 2019-02-13 07:05 | NUR ---
DR MYLES CALLED BACK. NEW ORDER RECEIVED.
[2019-02-13] MEDS: INSULIN REGULAR, HUMAN 100 UNIT/1 ML 3ML VIAL SQ SCH ×4 (07:30→20:39)
[2019-02-13] MEDS: FAMOTIDINE 20 MG/2 ML VIAL IV SCH ×2 (08:16→18:10)
[2019-02-13] MEDS ORDERED: NIFEDIPINE CR 30 MG TAB PO SCH (09:00)
[2019-02-13] MEDS ORDERED: SODIUM CHLORIDE 0.9% 250ML 250 ML ONE (10:49)
--- NOTE | 2019-02-13 10:54 | NUR ---
WOUND CARE CONSULTATION: THIS IS A 44 YEAR OLD MALE PATIENT WELL KNOWN TO OUR [facility] OUTPATIENT WOUND CARE CLINIC, THAT WAS REFERRED TO OUR ER FROM OUR CLINIC VISIT YESTERDAY PER DR. CALABRESE. PATIENT WAS RUNNING LOW GRADE TEMP, PALE, AND CHILLS. PATIENT WAS ADMITTD
--- NOTE | 2019-02-13 10:56 | NUR ---
WOUND CARE CONSULTATION: THIS IS A 44 YEAR OLD MALE PATIENT WELL KNOWN TO OUR [facility] OUTPATIENT WOUND CARE CLINIC. DR. CALABRESE REFERRED PATIENT TO [facility] ER FROM OUR WOUND CLINIC VISIT YESTERDAY FOR LOW GRADE FEVER, PALE AND CHILLS. PATIENT WAS ADMITTED TO [facility] FOR LINE SEPSIS, FOOT ULCER INFECTED, AND OSTEOMYELITIS OF ANKLE OR FOOT. HEAD TO TOE SKIN ASSESSMENT PERFORMED. PATIENT HAS A RIGHT LATERAL FOOT DIABETIC MUÑOZ 3 ULCER MEASURING 7X2X0.8CM, WITH PALPABLE BONE AND 85% SLOUGH, AND 15% PINK GRANULATION TO WOUND BED. PATIENT HAS A RIGHT HALLUX MUÑOZ 2 DIABETIC ULCER MEASURING 1X1X0.1CM, 100% SLOUGH COVERING WOUND BED. PATIENT HAS A LEFT PLANTAR FOOT DIABETIC MUÑOZ 2 ULCER MEASURING 2.2X1.3X0.3CM, 100% PINK GRANULATION AND PERIWOUND CALLUS. PATIENT HAS A STABLE CALLUS NOTED TO HIS LEFT LATERAL FOOT MEASURING 0.8X1.5CM. LABS: WBC10.30 HGB/HCT 6.5/19.5 [id number] ALB2.7 BLOOD CULTURE = PENDING MRI OF RIGHT FOOT = PENDING MEDICATIONS: ZOSYN DAPTOMYCIN RECOMMENDATIONS: -APPLY ALTERNATING PRESSURE RELIEF MATTRESS. -APPLY BILATERAL HEEL PROTECTORS WITH PILLOW SUSPENSION. -ENCOURAGE PATIENT TO TURN EVERY 2 HOURS AND PRN. -CONTINUE CURRENT WOUND TREATMENT ORDERS OF BETADINE WET TO DRY DRESSINGS TO LEFT FOOT MUÑOZ 2 DIABETIC ULCER, RIGHT LATERAL FOOT MUÑOZ 3 DIABETIC ULCER, AND RIGHT HALLUX MUÑOZ 2 DIABETIC ULCER, COVER WITH KERLIX AND CHANGE DAILY AND PRN. THANK YOU FOR THIS WOUND CARE CONSULTATION. Addendum: 02/13/19 at 1113 by Nicolle Mary RN Amended: Links added.
--- NOTE | 2019-02-13 14:50 | NUR ---
Visit made by the Spiritual Care Department Pastoral Visitor, Nava Lynch. PV provided pastoral presence, hospitality, and supportive listening. Pastoral Visitor informed pt/family of the scope of Surgical Physician Assistant Services and availability. TYLER GARCIA Heavy [employer] Field Mechanic Spiritual Care Department O: [phone] Pager: [phone] ([phone] number calling from)
--- NOTE | 2019-02-13 17:26 | Diagnostic Imaging Report ---
EXAM: Renal Ultrasound INDICATION: ^CKD stage 4 ^N COMPARISON: None TECHNIQUE: Transverse and longitudinal images of the kidneys and bladder were obtained. FINDINGS: Right Kidney: Length: 11.9 cm Appearance: Normal echogenicity. Collecting system: No hydronephrosis Stones: None Cyst/Mass: None Left Kidney: Length: 10.7 cm Appearance: Normal echogenicity. Collecting system: No hydronephrosis Stones: None Cyst/Mass: None Bladder: No bladder mass, wall thickening, or calculi. Ureteral jets not visualized. Prostate: Prostate measures 3.1 x 3.0 x 4.7 cm with estimated volume of 22.7 cc. Hyperechoic focus within the prostate measuring 5 x 3 x 5 mm consistent with coarse internal calcification. IMPRESSION: No hydronephrosis or renal calculi. Signed by: Sona Berry MD on 02/13/2019 5:23 PM
--- NOTE | 2019-02-13 18:04 | Diagnostic Imaging Report ---
MRI of the right foot hip without contrast. History: Foot pain. Abscess. Osteomyelitis. Infection lateral side of right foot Technique: Multiplanar multisequence MRI of the foot without contrast Comparison: MRI 01/02/2019 Findings: Abnormal skin ulceration/skin defect with associated soft tissue defect at the lateral aspect of the foot at the level of the proximal fifth metatarsal. There is abnormal adjacent skin thickening and abnormal adjacent soft tissue edema. There is a 1.0 cm elliptical shaped fluid collection in the adjacent superficial soft tissues worrisome for a small abscess best seen on series 8 image 19. There is underlying abnormal bone marrow edema in the majority of the fifth metatarsal, proximal fourth metatarsal, majority of the cuboid bone and in the adjacent lateral cuneiform bone. Findings are worrisome for osteomyelitis. Additionally, there is an associated comminuted likely pathologic fracture involving the proximal fifth metatarsal. Chronic appearing fracture deformity involving the navicular bone. Scattered degenerative changes about the remaining visualized osseous structures. No ligamentous or tendon tear is seen. The visualized neurovascular bundles are intact. Diffuse soft tissue edema most pronounced dorsally likely due to cellulitis. Impression: Findings consistent with skin ulceration, cellulitis, small abscess and underlying osteomyelitis centered at the lateral aspect of the foot as described above. This is worse when compared with the prior exam. Comminuted likely pathologic fracture involving the proximal fifth metatarsal. Signed by: Dr. Terry Lai M.D. on 02/13/2019 6:00 PM
[2019-02-13 18:08] LABS: % IRON SATURATION 6 % (15-50); IRON 10 ug/dL (65-175); TOTAL IRON BINDING CAPACITY 160 ug/dL (261-478); TRANSFERRIN 114 mg/dL (174-364)
[2019-02-13] MEDS: SODIUM CHLORIDE 0.9% 1000ML 1,000 ML IV SCH (18:10)
[2019-02-13] MEDS ORDERED: SOD POLYSTYRENE SULFONATE SUSP 15 GM/60 ML BTL PO ONE (18:15)
--- NOTE | 2019-02-13 18:32 | Consultation ---
DATE OF CONSULTATION: 02/13/2019 REASON FOR CONSULTATION: This is a patient well known to me, who has a diabetic foot ulcer. He presented to the Wound Care yesterday. He was febrile. He had fevers. He had malaise, so he was instructed to come to the Wound Care Center. HISTORY OF PRESENT ILLNESS: A 44-year-old male, who has a history of diabetes type 2. It is well controlled now. He has chronic kidney disease. He has a history of anemia. He has repeated ulcers to the lower extremity. He was recently in the hospital for an abscess and osteomyelitis to the left. He was progressing well up to yesterday when he showed up to the Wound Care Center with symptoms of malaise, high fever, so he was told to come to the emergency room. PAST MEDICAL HISTORY: Please refer to above. MEDICATIONS: Please refer to MAR. Of interest to this consult are Zosyn and daptomycin. REVIEW OF SYSTEMS: Noncontributory. Positive for ulcer to the right foot and left foot. PHYSICAL EXAMINATION: Lower extremity physical exam, pedal pulses are palpable. Capillary filling time is delayed. Protective threshold is absent. He has a full-thickness ulcer to the plantar aspect of the left foot. Wound measures approximately 10 cm x 3 cm x 3 cm with the wound probes to the bone and is about 100% fibrotic. On the 5th metatarsal, there is an ulcer that measures 2 cm in length, about a centimeter in width and about 0.4 mm in depth with 100% granular base. The left has erythema and edema, it is localizing today. No streaking erythema, no ascending lymphangitis. He is alert and oriented x3 and is in no acute distress. LABORATORY DATA: His white blood count is going down. He came in with 12.1, it is now down to 10.3. His neutrophils are also decreasing from 0.95 to 0.75. He is pending an MRI. The chest x-ray was negative. The ESR is 140. ASSESSMENT: 1. Diabetic foot ulcer, grade 3, left. 2. Diabetic foot ulcer, grade 2, right. 3. Chronic kidney disease. 4. Possible sepsis. PLAN: At this point, he is on IV antibiotics per Infectious Disease, though erythema and edema are localizing. I am going to recommend to continue local wound care to the area. I am going to wait for the MRI and depending on the results, I do not suspect he has a drainable abscess. So at this point, if the MRI is positive for osteomyelitis, he is going to need IV antibiotics and he is aware of this and continue local wound care. I will continue to follow. Thank you for letting me participate in the care of this patient. SONU Pérez/GIOVANNA /[id number]
[2019-02-13] MEDS ORDERED: IRON SUCROSE 100 MG in SODIUM CHLORIDE 0.9% 100 ML IV ONE (19:00)
[2019-02-13] MEDS ORDERED: WATER STERILE 10 ML VIAL INJ PRN (20:00)
[2019-02-13] MEDS ORDERED: ALTEPLASE RECOMBINANT 2 MG/2 ML VIAL IV PRN (20:00)
[2019-02-13] MEDS: NIFEDIPINE CR 30 MG TAB PO SCH (20:40)
[2019-02-13] MEDS: SODIUM BICARBONATE 650 MG TAB PO SCH (20:41)
[2019-02-13] MEDS ORDERED: SODIUM CHLORIDE 0.9% IV SCH (22:00)
[2019-02-13] MEDS ORDERED: DAPTOMYCIN IV SCH (22:00)
[2019-02-13 23:45] LABS: CREATININE,URINE RANDOM 77.74 mg/dL (63-166)
[2019-02-14] VITALS (7 sets, daily range): BP systolic 115–150; BP diastolic 57–70
[2019-02-14 00:53] LABS: TOTAL PROTEIN, URINE 478.9 mg/dL (1-14)
--- NOTE | 2019-02-14 04:13 | Consultation ---
DATE OF CONSULTATION: 02/13/2019 HISTORY OF PRESENT ILLNESS: Mr. Pete Ellis was well known to our Nephrology Service. A 44-year-old gentleman with longstanding history of diabetes, insulin dependent with diabetic neuropathy, retinopathy, peripheral vascular disease, nonhealing ulcer, prior infection, sepsis, chronic kidney disease stage 4, diabetic nephropathy, proteinuria, underlying hypertension, hyperlipidemia. Anemia, chronic kidney disease. Presented with osteomyelitis of the ankle and foot. Quite anemic, hemoglobin 6.5, just came back from an MRI. Currently, awake, alert, feeling cold because the room was cold other than that he denies any fever, nausea, vomiting, headache. Slightly nauseated yesterday, but no diarrhea noted. LABORATORY TEST: Shows sodium 133, potassium 5.3, bicarbonate 17, creatinine 3.7. Hemoglobin 6.5. CURRENT MEDICATIONS: Peptazol, famotidine, zolpidem 5 mg at bedtime, nifedipine 60 b.i.d., hydralazine 10 mg q.4 p.r.n., morphine sulfate p.r.n., clonidine 0.2 mg p.o. t.i.d., ondansetron p.r.n., and insulin sliding scale. SOCIAL HISTORY: The patient is . Does not smoke or drink. ALLERGIES: NO APPARENT DRUG ALLERGIES. PHYSICAL EXAMINATION: GENERAL: Awake, alert, lying supine, in no apparent distress with a blood pressure of 140/70, pulse rate 88. HEAD AND NECK: Cornea clear. Oral mucosa moist. Neck veins flat. LUNGS: Harsh vesicular breath sounds, relatively clear. HEART: S1, S2 audible. ABDOMEN: Soft and nontender. EXTREMITIES: Lower extremity dressing noted. No edema. IMPRESSION AND PLAN: 1. Anemia, multifactorial. Will likely need packed RBC transfusion. I will send iron profile with ferritin, may need IV iron and erythropoietin. 2. Underlying type 4 renal tubular acidosis secondary to diabetic nephropathy. 3. Hyponatremia, multifactorial. 4. Hypertension. Plan on hydrating patient, correcting acidosis, treating hyperkalemia, may need packed RBC transfusions as discussed. Obtain iron profile, IV iron, Kayexalate, potassium restricted diet. Megan Henderson MD SAK/MODL /[id number]
[2019-02-14] MEDS: SODIUM CHLORIDE 0.9% 1000ML 1,000 ML IV SCH ×2 (05:29→14:00)
[2019-02-14] MEDS: PIPER-TAZ 3.375 GM 50 ML IV SCH ×3 (05:29→22:50)
[2019-02-14 05:33] LABS: BASOPHILS % 0.4 % (0.0-1.0); EOSINOPHILS # (AUTO) 0.1 (0.0-0.4); EOSINOPHILS % 1.1 % (0.0-6.0); HEMATOCRIT 21.5 % (38.2-49.6); HEMOGLOBIN 7.1 g/dL (14.0-18.0); LYMPHOCYTES # (AUTO) 1.4 (1.0-3.2); LYMPHOCYTES % 13.8 % (18.0-39.1); MEAN CORPUSCULAR HEMOGLOBIN 29.2 pg (28-32); MEAN CORPUSCULAR VOLUME 88.5 fL (81-99); MONOCYTES # (AUTO) 1.4 (0.2-0.8); MONOCYTES % 13.8 % (4.4-11.3); NEUTROPHILS # (AUTO) 7.2 (2.1-6.9); NEUTROPHILS % 70.3 % (38.7-80.0); PLATELET COUNT 225 x10e3/uL (140-360); RED BLOOD COUNT 2.43 x10e6/uL (4.3-5.7); RED CELL DISTRIBUTION WIDTH 13.2 % (11.7-14.4)
[2019-02-14 05:46] LABS: CALCIUM 8.2 mg/dL (8.4-10.2); CREATININE, SERUM 4.06 mg/dL (0.72-1.25)
--- NOTE | 2019-02-14 07:09 | NUR ---
RECEIVED PATIENT ASLEEP IN BED NO SIGNS OF DISTRESS AT THIS TIME. BED LOW, WHEELS LOCKED, SIDE RAILS X2. CALL LIGHT IN REACH WILL CONTINUE TO MONITOR PATIENT.
[2019-02-14] MEDS: INSULIN REGULAR, HUMAN 100 UNIT/1 ML 3ML VIAL SQ SCH ×4 (07:30→21:00)
[2019-02-14] MEDS ORDERED: IRON SUCROSE 100 MG/5 ML VIAL IV SCH (09:00)
[2019-02-14] MEDS: SODIUM BICARBONATE 650 MG TAB PO SCH ×3 (09:00→22:17)
[2019-02-14] MEDS: NIFEDIPINE CR 30 MG TAB PO SCH ×2 (09:00→22:17)
[2019-02-14] MEDS: FAMOTIDINE 20 MG/2 ML VIAL IV SCH (09:00)
--- NOTE | 2019-02-14 09:30 | NUR ---
PATIENT A/O X3, EVEN RESPIRATIONS ON RA. BOWEL SOUNDS ACTIVE, NO EDEMA. NON-WEIGHT BEARING ON RIGHT FOOT. BILATERAL FOOT ULCERS. DRESSING CLEAN, DRY, AND INTACT. RIGHT IJ SL. RIGHT AC 18 GAUGE IV WITH NS @ 100 CC/HR. IV INTACT/PATENT. AMBULATES WITH WALKER. NO PAIN AT THIS TIME. CALL LIGHT IN REACH, WILL CONTINUE TO MONITOR PATIENT.
[2019-02-14] MEDS: IRON SUCROSE 100 MG in SODIUM CHLORIDE 0.9% 100 ML IV SCH (10:42)
--- NOTE | 2019-02-14 15:30 | NUR ---
WOUND CARE PERFORMED TO BILATERAL FEET. CLEANSED FOOT WITH NORMAL SALINE, APPLIED BETADINE, COVERED WITH 4X4 GAUZE AND WRAPPED WITH KERLIX.
[2019-02-14] MEDS: EPOETIN ALFA 10000 UNIT/ML VIAL SC SCH (17:29)
[2019-02-14] MEDS: FAMOTIDINE 20 MG TAB PO SCH (17:29)
[2019-02-14] MEDS: SODIUM BICARBONATE 8.4% SYRING 150 ML in DEXTROSE 5% 1,000 ML IV SCH (17:51)
--- NOTE | 2019-02-14 18:16 | NUR ---
PAGED DR. VIERA REGARDING IJ LINE. WAITING FOR CALL BACK.
[2019-02-14] MEDS ORDERED: DAPTOMYCIN IV SCH (22:00)
[2019-02-14] MEDS ORDERED: SODIUM CHLORIDE 0.9% IV SCH (22:00)
[2019-02-15] VITALS: BP 134/65
[2019-02-15 04:00] VITALS: BP 138/65
[2019-02-15 05:36] LABS: BASOPHILS % 0.3 % (0.0-1.0); EOSINOPHILS # (AUTO) 0.1 (0.0-0.4); EOSINOPHILS % 1.2 % (0.0-6.0); HEMATOCRIT 21.9 % (38.2-49.6); HEMOGLOBIN 7.7 g/dL (14.0-18.0); LYMPHOCYTES # (AUTO) 1.3 (1.0-3.2); LYMPHOCYTES % 13.8 % (18.0-39.1); MEAN CORPUSCULAR HEMOGLOBIN 30.1 pg (28-32); MEAN CORPUSCULAR HGB CONC 35.2 g/dL (31-35); MONOCYTES # (AUTO) 1.2 (0.2-0.8); MONOCYTES % 12.2 % (4.4-11.3); NEUTROPHILS # (AUTO) 6.8 (2.1-6.9); PLATELET COUNT 288 x10e3/uL (140-360); RED BLOOD COUNT 2.56 x10e6/uL (4.3-5.7); RED CELL DISTRIBUTION WIDTH 13.1 % (11.7-14.4)
[2019-02-15] MEDS: PIPER-TAZ 3.375 GM 50 ML IV SCH ×3 (05:40→23:15)
[2019-02-15 05:51] LABS: ALBUMIN 2.2 g/dL (3.5-5.0); ALBUMIN/GLOBULIN RATIO 0.5 (0.8-2.0); ANION GAP 14.9 mmol/L (8-16); CALCIUM 8.3 mg/dL (8.4-10.2); CREATININE, SERUM 5.11 mg/dL (0.72-1.25); POTASSIUM 3.9 mmol/L (3.5-5.1)
[2019-02-15 05:53] LABS: MEAN CORPUSCULAR VOLUME 85.5 fL (81-99)
[2019-02-15] MEDS: INSULIN REGULAR, HUMAN 100 UNIT/1 ML 3ML VIAL SQ SCH ×4 (07:30→20:10)
[2019-02-15] MEDS: FAMOTIDINE 20 MG TAB PO SCH ×2 (07:30→16:32)
[2019-02-15] MEDS: NIFEDIPINE CR 30 MG TAB PO SCH ×2 (07:45→20:25)
[2019-02-15 08:50] VITALS: BP 147/73
[2019-02-15] MEDS: SODIUM BICARBONATE 650 MG TAB PO SCH ×3 (09:00→20:25)
[2019-02-15] MEDS: SODIUM BICARBONATE 8.4% SYRING 150 ML in DEXTROSE 5% 1,000 ML IV SCH (09:10)
[2019-02-15] MEDS ORDERED: BACITRACIN 50,000 UNIT VIAL ONE (10:54)
[2019-02-15] MEDS ORDERED: BUPIVACAINE HCL 0.5% INJ 30 ML VIAL INJ ONE (10:54)
[2019-02-15] MEDS: IRON SUCROSE 100 MG in SODIUM CHLORIDE 0.9% 100 ML IV SCH (13:00)
[2019-02-15] MEDS: ONDANSETRON HCL INJ 2MG/ML 2ML 2 MG/ML VIAL IV PRN (13:10)
--- NOTE | 2019-02-15 13:37 | Operative Report ---
DATE OF PROCEDURE: 02/15/2019 SURGEON: Elsy Gay DPM PREOPERATIVE DIAGNOSES: 1. Osteomyelitis, right. 2. Grade 3 ulcer, right 5th, lateral foot. 3. Grade 2 ulcer, left sub 4th. PATHOLOGY: Bone cultures and sensitivity of the right. PROCEDURE: 1. Debridement to include bone with bone culture and sensitivity of the right. 2. Debridement of the left with application of graft. COMPLICATIONS: None. CONDITION: Stable. PROCEDURE IN DETAIL: Under mild sedation, the patient was brought to the operating room and placed on the operating table in the supine position. Following IV sedation, anesthesia was obtained with a general anesthetic. At this point, the left foot was scrubbed, prepped, and draped in the usual aseptic manner. It was then lowered to the table. Attention was directed to the plantar aspect of the left foot where utilizing 15 blade and rongeur, the wound was divided down to clean viable tissue; after debridement, it was 100% granular on the left, utilizing a pressure property coordinator, the area was irrigated, then a graft was applied, it was secured utilizing marely and a clean dressing was applied. Attention was directed to the lateral aspect of the right foot, where utilizing a combination of rongeur, a 15 blade and a curette, all nonviable tissue was removed. Before debridement, the wound was about 80% nonviable and 20% fibrotic and after the debridement, it was about 70% granular, 30% with bone exposed. The area was then flushed with copious amount of irrigation before with a pressure property coordinator and bacitracin. Before irrigation, bone cultures were taken for aerobic, anaerobic, and fungal. After that the area was flushed with copious amount of normal sterile saline solution with a pressure property coordinator. What was left to the graft was applied to the area of the tunnel and secured utilizing marely. A clean dressing was also applied, 4x4s, Kerlix, and Jack bandage. The patient tolerated procedure and anesthesia well without complications, was transported to recovery room with vital signs stable and vascular status intact to both feet. The patient will be discharged home when he meets criteria. He was given instructions to be nonweightbearing, to elevate the foot while at rest. I will continue to follow in the hospital. He is on IV antibiotics by Infectious Disease. He is being followed by Renal secondary to stage 4 renal disease. He was admitted back into the room. SONU Pérez/GIOVANNA /[id number]
[2019-02-15 14:08] LABS: BASOPHILS % 0.2 % (0.0-1.0); EOSINOPHILS # (AUTO) 0.1 (0.0-0.4); EOSINOPHILS % 1.3 % (0.0-6.0); HEMATOCRIT 19.6 % (38.2-49.6); LYMPHOCYTES # (AUTO) 1.1 (1.0-3.2); LYMPHOCYTES % 12.9 % (18.0-39.1); MEAN CORPUSCULAR HEMOGLOBIN 30.1 pg (28-32); MEAN CORPUSCULAR HGB CONC 34.7 g/dL (31-35); MEAN CORPUSCULAR VOLUME 86.7 fL (81-99); MONOCYTES % 12.1 % (4.4-11.3); NEUTROPHILS # (AUTO) 6.2 (2.1-6.9); NEUTROPHILS % 72.9 % (38.7-80.0); PLATELET COUNT 202 x10e3/uL (140-360); RED BLOOD COUNT 2.26 x10e6/uL (4.3-5.7); RED CELL DISTRIBUTION WIDTH 13.2 % (11.7-14.4)
[2019-02-15 14:10] LABS: HEMOGLOBIN 6.8 g/dL (14.0-18.0)
--- NOTE | 2019-02-15 14:18 | NUR ---
hgb 6.[address] Chua. No new orders received. Hgb 6.[address] Nieves, orders received to transfuse the one unit of blood that is on hold.
[2019-02-15] MEDS ORDERED: SODIUM CHLORIDE 0.9% 250ML 250 ML IV NR (15:45)
--- NOTE | 2019-02-15 15:50 | NUR ---
CM SPOKE TO NURSING STAFF DURING MDR ROUNDS. PATIENT WITH PENDING BLOOD CULTURES AND NEEDS WOUND CARE FOR LEFT ANKLE /FOOT AFTER DISCHARGE. PATIENT HAS OSTEOMYELITIS. PENDING BLOOD CULTURE RESULTS FOR POSSIBLE LTAC VS. HOME HEALTH FOR IV ABX AND WOUND CARE.
[2019-02-15 16:19] VITALS: BP 141/67
--- NOTE | 2019-02-15 17:10 | NUR ---
Patient is receiving blood transfusion and tolerating well, no complaints at this time.
[2019-02-15] MEDS ORDERED: LIDOCAINE HCL 2% LOCAL INJ 5 ML SDV VIAL INJ ONE (17:18)
[2019-02-15] MEDS ORDERED: PROPOFOL IV EMULSION 10 MG/ML 20 ML VIAL ONE (17:18)
[2019-02-15] MEDS ORDERED: ONDANSETRON HCL INJ 2MG/ML 2ML 2 MG/ML VIAL ONE (17:18)
[2019-02-15] MEDS ORDERED: SEVOFLURANE INHAL SOLN 250 ML PEN BTL ONE (17:18)
--- NOTE | 2019-02-15 17:33 | NUR ---
Lab notified of 1530 STAT CK that needs to be drawn
--- NOTE | 2019-02-15 19:33 | NUR ---
1st unit of PRBCs completed, no reactions noted.
[2019-02-15 20:00] VITALS: BP 166/80
[2019-02-15 20:45] VITALS: BP 148/69
--- NOTE | 2019-02-15 20:45 | NUR ---
2nd unit of PRBCs started, no reaction noted first 15 mins.
--- NOTE | 2019-02-15 23:15 | NUR ---
2nd unit of PRBCs completed, no reaction noted.
[2019-02-15] MEDS: ACETAMINOPHEN 325 MG TAB PO PRN (23:51)
[2019-02-16] VITALS (8 sets, daily range): BP systolic 138–166; BP diastolic 67–81
[2019-02-16] MEDS: SODIUM BICARBONATE 8.4% SYRING 150 ML in DEXTROSE 5% 1,000 ML IV SCH ×2 (04:32→05:49)
[2019-02-16 05:28] LABS: BASOPHILS % 0.4 % (0.0-1.0); EOSINOPHILS # (AUTO) 0.2 (0.0-0.4); EOSINOPHILS % 2.1 % (0.0-6.0); HEMATOCRIT 24.4 % (38.2-49.6); HEMOGLOBIN 8.4 g/dL (14.0-18.0); LYMPHOCYTES # (AUTO) 1.3 (1.0-3.2); MEAN CORPUSCULAR HEMOGLOBIN 29.3 pg (28-32); MEAN CORPUSCULAR HGB CONC 34.4 g/dL (31-35); MONOCYTES # (AUTO) 1.2 (0.2-0.8); NEUTROPHILS # (AUTO) 5.5 (2.1-6.9); NEUTROPHILS % 66.8 % (38.7-80.0); PLATELET COUNT 218 x10e3/uL (140-360); RED BLOOD COUNT 2.87 x10e6/uL (4.3-5.7); RED CELL DISTRIBUTION WIDTH 13.3 % (11.7-14.4)
[2019-02-16] MEDS: PIPER-TAZ 3.375 GM 50 ML IV SCH (05:49)
[2019-02-16 05:52] LABS: ALBUMIN 2.1 g/dL (3.5-5.0); ALBUMIN/GLOBULIN RATIO 0.5 (0.8-2.0); ANION GAP 15.9 mmol/L (8-16); CALCIUM 8.2 mg/dL (8.4-10.2); CREATININE, SERUM 5.51 mg/dL (0.72-1.25); POTASSIUM 3.9 mmol/L (3.5-5.1)
--- NOTE | 2019-02-16 07:12 | NUR ---
DR LANCE CALLED AND LEFT FOR NEW CONSULT.
[2019-02-16] MEDS: INSULIN REGULAR, HUMAN 100 UNIT/1 ML 3ML VIAL SQ SCH ×4 (07:30→20:57)
[2019-02-16] MEDS: FAMOTIDINE 20 MG TAB PO SCH ×2 (08:11→15:46)
[2019-02-16] MEDS: NIFEDIPINE CR 30 MG TAB PO SCH ×3 (08:11→21:51)
[2019-02-16] MEDS: SODIUM BICARBONATE 650 MG TAB PO SCH ×3 (08:13→21:51)
[2019-02-16] MEDS: IRON SUCROSE 100 MG in SODIUM CHLORIDE 0.9% 100 ML IV SCH (08:36)
--- NOTE | 2019-02-16 12:03 | NUR ---
WOUND CARE FOLLOW UP NOTE. PT S/P ONE DAY SURGICAL DEBRIDEMENT AND GRAFT PLACEMENT TO BILATERAL FOOT ULCERS PER DR. CALABRESE. WOUND ASSESSED AND WOUND VAC PLACED TO RIGHT LATERAL FOOT ULCER PREVIOUSLY ORDERED BY DR. CALABRESE.. DR. VIERA HERE TO ASSESS PT. IV ABX THERAPY CHANGED. PT TO BE DISCHARGED WITH THE FOLLOWING ORDERS ONCE CLINICALLY CLEARED FOR DISCHARGE BY DR. LEWIS AND TURBINE OPERATOR. CEFAZOLIN 1G IV Q 24HRS AND LEVAQUIN 250MG IV Q 24 HOURS. PRIMARY NURSE AWARE. WILL CONTINUE TO FOLLOW UP WITH PT. Addendum: 02/16/19 at 1211 by Sissy Navas RN Amended: Links added.
--- NOTE | 2019-02-16 12:10 | NUR ---
aware of blood culture results. Per "okay to start using right IJ"
[2019-02-16] MEDS: CLONIDINE HCL 0.2 MG TAB PO PRN (12:30)
[2019-02-16] MEDS: LEVOFLOXACIN 250MG/D5W 50ML 50 ML IV SCH (12:40)
--- NOTE | 2019-02-16 14:30 | NUR ---
product distribution specialist for . paged by Angy, mmd unit teacher.
[2019-02-16] MEDS: EPOETIN ALFA 10000 UNIT/ML VIAL SC SCH (15:47)
--- NOTE | 2019-02-16 15:57 | Progress Note ---
DATE: 02/16/2019 SUBJECTIVE: The patient was seen at bedside. He is feeling well. His family is at bedside. He denies any pain. PHYSICAL EXAMINATION: VITAL SIGNS: Stable. EXTREMITIES: Pedal pulses palpable. Capillary filling time is delayed, intrinsic minus type of foot. He has an ulcer to the right 5th laterally and another ulcer to the left plantar metatarsal area. Erythema and edema are localizing. intact. LABORATORY DATA: Labs were reviewed. His GFR continues to drop. His hemoglobin and hematocrit are going up. His white blood count is also decreasing. ESR is 140. ASSESSMENT: 1. Diabetic foot ulcer grade 3, right. 2. Diabetic foot ulcer grade 2, left. 3. Diabetes with neuropathy. 4. Stage 4 kidney disease. 5. Small-vessel peripheral vascular disease. PLAN: At this point, we discussed treatment. He is currently on IV antibiotics per Infectious Disease. His blood alcohol wound cultures from the OR are pending, so they are going to re-incubate. Wound VAC will stay on. Continue to offload and I will see him. Continue to follow. SONU Pérez/GIOVANNA /[id number]
--- NOTE | 2019-02-16 16:47 | NUR ---
PT ON BICARB IV, GETTING WOUND VAC PENDING BLOOD CULTURES, STILL PENDING DECISION OF [facility] VERSES HOME [facility] FOR IV ABX AT HOME.
--- NOTE | 2019-02-16 19:27 | NUR ---
Report given to oncoming nurse of patient's status. Resting in bed, side rails upx2, call light within reach, family at bedside. No s/s of acute distress noted. Dressing to bilateral feet clean, dry, and intact. Wound vac to right foot in place.
--- NOTE | 2019-02-16 19:30 | NUR ---
Patient received sitting up in bed. AAO x 4. Patient had no complaints of pain. Respirations even and non-labored. Safety measures implemented. Wound dressing to ROSALBA feet CDI. Wound vac to right foot intact. IVF infusing at 70 cc/hr. Patient instructed to call for assistance when needed. Call light within reach.
[2019-02-16] MEDS ORDERED: BISACODYL 5 MG TAB EC PO PRN (19:45)
[2019-02-17] VITALS (8 sets, daily range): BP systolic 134–161; BP diastolic 64–81
--- NOTE | 2019-02-17 07:00 | NUR ---
Walking rounds done. Shift report given to oncoming nurse regarding patient's health status.
--- NOTE | 2019-02-17 07:12 | NUR ---
pt asleep resp even and unlabored at this time no distress noted pt easily aroused and able to make needs known , no c/o pain when asked wound vac intact, call light in reach.
[2019-02-17] MEDS: INSULIN REGULAR, HUMAN 100 UNIT/1 ML 3ML VIAL SQ SCH ×4 (07:30→21:00)
[2019-02-17] MEDS ORDERED: NIFEDIPINE CR 30 MG TAB PO SCH (08:00)
[2019-02-17 08:07] LABS: BASOPHILS % 0.3 % (0.0-1.0); EOSINOPHILS # (AUTO) 0.3 (0.0-0.4); EOSINOPHILS % 2.4 % (0.0-6.0); HEMATOCRIT 30.4 % (38.2-49.6); HEMOGLOBIN 10.7 g/dL (14.0-18.0); LYMPHOCYTES # (AUTO) 1.9 (1.0-3.2); LYMPHOCYTES % 16.4 % (18.0-39.1); MEAN CORPUSCULAR HEMOGLOBIN 29.8 pg (28-32); MEAN CORPUSCULAR HGB CONC 35.2 g/dL (31-35); MEAN CORPUSCULAR VOLUME 84.7 fL (81-99); MONOCYTES # (AUTO) 1.4 (0.2-0.8); MONOCYTES % 11.6 % (4.4-11.3); PLATELET COUNT 355 x10e3/uL (140-360); RED BLOOD COUNT 3.59 x10e6/uL (4.3-5.7); RED CELL DISTRIBUTION WIDTH 13.4 % (11.7-14.4)
[2019-02-17] MEDS: SODIUM BICARBONATE 650 MG TAB PO SCH ×3 (08:26→20:51)
[2019-02-17] MEDS: FAMOTIDINE 20 MG TAB PO SCH ×2 (08:26→16:30)
[2019-02-17] MEDS: FERROUS SULFATE 325 MG TAB PO SCH ×2 (08:26→17:00)
[2019-02-17] MEDS: NIFEDIPINE CR 30 MG TAB PO SCH ×3 (08:26→20:51)
[2019-02-17 08:30] LABS: ALBUMIN 1.8 g/dL (3.5-5.0); ALBUMIN/GLOBULIN RATIO 0.4 (0.8-2.0); ANION GAP 16.2 mmol/L (8-16); CALCIUM 7.7 mg/dL (8.4-10.2); CREATININE, SERUM 4.9 mg/dL (0.72-1.25); POTASSIUM 4.2 mmol/L (3.5-5.1)
[2019-02-17] MEDS ORDERED: CEFAZOLIN SOD 1 GM/NS 50ML 100 ML IV SCH (09:00)
[2019-02-17] MEDS: LEVOFLOXACIN 250MG/D5W 50ML 50 ML IV SCH (12:54)
[2019-02-17] MEDS: SODIUM BICARBONATE 8.4% SYRING 150 ML in DEXTROSE 5% 1,000 ML IV SCH (12:54)
--- NOTE | 2019-02-17 15:16 | NUR ---
Nutrition Screen Note RD Recommendation for Physician: 1.Recommend continue with Renal Diabetic Diet Plan of Care: RD following, monitoring for tolerance and adequacy Nutrition reason for involvement: Nutrition Screening Primary Diagnose(s): Line Sepsis, Sepsis PMH: Diabetes Type 2, CKD, Anemia Ht: 71 in Wt: 220 lbs BMI: 30.68 kg/m2 IBW: 172lbs +/- 10% RD Assessment: (02/17) Chart reviewed. Labs and meds reviewed. 44 y/o M with repeated left foot and right foot diabetic ulcers. Pt noted hx of diabetes x 15 years, reports following a diabetic renal diet at home. Patient reports good PO intake, no changes in appetite or weight with UBW of 215lbs. Denied any N/V/D/C or any difficulties chewing/swallowing. Will continue to monitor and follow. Current Diet: Renal Diabetic Diet Malnutrition Evaluation (02/17) The patient does not meet criteria for a specified degree of malnutrition at this time. Will re-evaluate at follow-up as appropriate. Diet Education Needs Assessment: Diet education indicated, educated patient on renal diabetic diet. Learner(s): Patient Barriers: none Cultural/Language Modifications: none Readiness: acceptance Method: Oral education Topics: Modified protein, carbohydrate and K diet Understanding/Compliance: Fair Nutrition Care Level: LOW Signed: Krissy Lopez MS, RD, LD
[2019-02-17] MEDS: MUPIROCIN 2% OINT 22 GM TUBE TOP SCH (18:46)
--- NOTE | 2019-02-17 19:07 | Progress Note ---
DATE: 02/17/2019 SUBJECTIVE: The patient seen at bedside. Denies any history of fever, chills, nausea, or vomiting. OBJECTIVE: VITAL SIGNS: Afebrile, pulse rate 72, respirations 18, blood pressure 134/64, and O2 saturation 98%. LABORATORY DATA: Show white blood cell count of 5.7, hemoglobin 10.7, and platelet count of 355. Wound VAC on, had a debridement of the ulcer with placement of graft to the lateral aspect of the right fifth MPJ. Has a grade 2 ulcer on the plantar aspect of right great toe unrelated surgery measuring less than 1 cm in diameter. Some necrosis noted down the dermis. ASSESSMENT: Diabetic neuropathy with a grade 2 ulceration, right great toe. PLAN: We will start applying Bactroban ointment to the right great toe. Continue wound VAC to the right foot. Continue offloading. Continue IV antibiotics. SONU Fair/GIOVANNA /[id number]
--- NOTE | 2019-02-17 19:14 | NUR ---
report given to oncoming nurse, for continued care, pt stable.
--- NOTE | 2019-02-17 19:20 | NUR ---
Patient received sitting in chair, Family at bedside. No acute distress noted. Wound vac to right foot. Call light within reach.
[2019-02-18] VITALS (8 sets, daily range): BP systolic 135–158; BP diastolic 68–77
[2019-02-18] MEDS: SODIUM BICARBONATE 8.4% SYRING 150 ML in DEXTROSE 5% 1,000 ML IV SCH (04:00)
[2019-02-18 05:29] LABS: ANION GAP 14.9 mmol/L (8-16); CALCIUM 7.7 mg/dL (8.4-10.2); CREATININE, SERUM 4.36 mg/dL (0.72-1.25); POTASSIUM 3.9 mmol/L (3.5-5.1)
--- NOTE | 2019-02-18 07:11 | NUR ---
recd pt alert resp, even and unlabored, no distress noted at this time, no c/o pain, call light in reach. family member at bedside, will cont to monitor.
--- NOTE | 2019-02-18 07:13 | NUR ---
Shift report given to oncoming nurse.
[2019-02-18] MEDS: MUPIROCIN 2% OINT 22 GM TUBE TOP SCH ×2 (09:12→17:00)
[2019-02-18] MEDS: SODIUM BICARBONATE 650 MG TAB PO SCH ×3 (09:20→21:14)
[2019-02-18] MEDS: FAMOTIDINE 20 MG TAB PO SCH ×2 (09:20→17:01)
[2019-02-18] MEDS: FERROUS SULFATE 325 MG TAB PO SCH ×2 (09:20→17:01)
[2019-02-18] MEDS: NIFEDIPINE CR 30 MG TAB PO SCH ×3 (09:21→21:15)
[2019-02-18] MEDS: INSULIN REGULAR, HUMAN 100 UNIT/1 ML 3ML VIAL SQ SCH ×4 (09:37→20:24)
[2019-02-18] MEDS: LEVOFLOXACIN 250MG/D5W 50ML 50 ML IV SCH (12:03)
--- NOTE | 2019-02-18 19:35 | NUR ---
report given to oncoming nurse at this time, pt stable.
[2019-02-19] VITALS (8 sets, daily range): BP systolic 145–179; BP diastolic 72–90
[2019-02-19] MEDS: SODIUM BICARBONATE 8.4% SYRING 150 ML in DEXTROSE 5% 1,000 ML IV SCH ×2 (03:31→12:03)
[2019-02-19 05:13] LABS: BASOPHILS % 0.5 % (0.0-1.0); EOSINOPHILS # (AUTO) 0.2 (0.0-0.4); EOSINOPHILS % 2.7 % (0.0-6.0); HEMATOCRIT 28.3 % (38.2-49.6); HEMOGLOBIN 9.4 g/dL (14.0-18.0); LYMPHOCYTES # (AUTO) 1.3 (1.0-3.2); LYMPHOCYTES % 15.1 % (18.0-39.1); MEAN CORPUSCULAR HGB CONC 33.2 g/dL (31-35); MEAN CORPUSCULAR VOLUME 87.3 fL (81-99); MONOCYTES # (AUTO) 1.1 (0.2-0.8); MONOCYTES % 12.8 % (4.4-11.3); NEUTROPHILS # (AUTO) 5.8 (2.1-6.9); NEUTROPHILS % 67.6 % (38.7-80.0); PLATELET COUNT 310 x10e3/uL (140-360); RED BLOOD COUNT 3.24 x10e6/uL (4.3-5.7); RED CELL DISTRIBUTION WIDTH 13.2 % (11.7-14.4)
[2019-02-19 05:35] LABS: ALBUMIN 1.8 g/dL (3.5-5.0); ALBUMIN/GLOBULIN RATIO 0.5 (0.8-2.0); ANION GAP 14.1 mmol/L (8-16); CREATININE, SERUM 3.93 mg/dL (0.72-1.25); POTASSIUM 4.1 mmol/L (3.5-5.1)
--- NOTE | 2019-02-19 07:00 | NUR ---
received pt lying in bed with eyes open and TV on. resp even and unlabored. no c/o pain at this time. call light within reach.
[2019-02-19] MEDS: INSULIN REGULAR, HUMAN 100 UNIT/1 ML 3ML VIAL SQ SCH ×4 (07:30→21:25)
--- NOTE | 2019-02-19 07:37 | NUR ---
GAVE REPORT TO ONCOMING NURSE. CALL LIGHT WITHIN REACH. PATIENT IN BED
[2019-02-19] MEDS: SODIUM BICARBONATE 650 MG TAB PO SCH ×3 (08:56→21:24)
[2019-02-19] MEDS: FAMOTIDINE 20 MG TAB PO SCH ×2 (08:56→17:48)
[2019-02-19] MEDS: MUPIROCIN 2% OINT 22 GM TUBE TOP SCH ×2 (08:56→17:07)
[2019-02-19] MEDS: NIFEDIPINE CR 30 MG TAB PO SCH ×2 (08:56→15:00)
[2019-02-19] MEDS: CEFAZOLIN SOD 1 GM/NS 50ML 50 ML IV SCH (08:56)
[2019-02-19] MEDS: FERROUS SULFATE 325 MG TAB PO SCH ×2 (08:56→17:48)
--- NOTE | 2019-02-19 09:50 | Progress Note ---
DATE: 02/18/2019 SUBJECTIVE: Patient at bedside, doing somewhat better. He is denying any history of fever, chills, nausea, or vomiting. OBJECTIVE: VITALS: Afebrile, pulse rate 82, respirations 20 with an O2 saturation 100%, blood pressure 158/77. MUSCULOSKELETAL: Ulceration to the right great toe is improving. SKIN: Temperature warm to touch. ASSESSMENT: Osteomyelitis, right foot with a grade 2 ulcer unrelated to surgery and flap right lower extremity. PLAN: We will continue Bactroban ointment to the right great toe. Continue wound VAC as per Dr. Chua. Dr. Elsy Chua will follow up this week. Continue levofloxacin and cefazolin. SONU Fair/GIOVANNA /[id number]
--- NOTE | 2019-02-19 11:58 | NUR ---
wound care note: WOUND VAC DRESSING CHANGED TO RIGHT FOOT GRAFT SITE. NO S/S INFECTION. PATIENT HAD ADAPTIC STAPLED TO GRAFT SITE, APPEARS TO BE STAPLE & INTACT, VAC SPONGE PLACED OVER ADAPTIC & BRIDGED TO LOWER LEG SO THAT SUCTION WAS NOT PLACED ON FOOT AREA. EDEMA +2 NOTED TO RLE, INSTRUCTED PATIENT TO ELEVATE LEG THROUGHOUT DAY, NO REDNESS OR PAIN NOTED. VAC RUNNING @120MMHG. [employer] SITE SHOWS PATIENT WAS APPROVED FOR OUPATIENT [facility] [employer] VAC THAT WILL COME FROM WOUND CARE CLINIC WHEN DISCHARGING TUESDAY PLANNED BY DR LEWIS. PATIENT IS AWARE. AT BEDSIDE. LEFT FOOT DRESSING WAS CHANGED BY [employer] THIS AM, STATED ADAPTIC WAS STAPLED TO GRAFT SITE, DRY & INTACT WHEN ASSESSED. Addendum: 02/19/19 at 1204 by Gisela Nunes LVN Amended: Links added.
[2019-02-19] MEDS: LEVOFLOXACIN 250MG/D5W 50ML 50 ML IV SCH (12:03)
--- NOTE | 2019-02-19 13:14 | NUR ---
PT DISCUSSED IN BARRIER ROUNDS ON IV ZOSAN, HGB 9.4, PER PT WILL BE KEPT UNTIL TUESDAY AND THEN BE DISCHARGED
[2019-02-19] MEDS ORDERED: NIFEDIPINE CR 30 MG TAB PO SCH ×3 (17:00→21:00)
[2019-02-19] MEDS: EPOETIN ALFA 10000 UNIT/ML VIAL SC SCH (17:49)
[2019-02-20] VITALS: BP 169/79
[2019-02-20 04:00] VITALS: BP 181/86
[2019-02-20] MEDS: CLONIDINE HCL 0.2 MG TAB PO PRN (04:14)
[2019-02-20 04:35] LABS: ALBUMIN 1.9 g/dL (3.5-5.0); ALBUMIN/GLOBULIN RATIO 0.5 (0.8-2.0); ANION GAP 13.1 mmol/L (8-16); CREATININE, SERUM 3.57 mg/dL (0.72-1.25); POTASSIUM 4.1 mmol/L (3.5-5.1)
[2019-02-20] MEDS: INSULIN REGULAR, HUMAN 100 UNIT/1 ML 3ML VIAL SQ SCH ×3 (07:30→16:30)
[2019-02-20 07:58] VITALS: BP 162/77
[2019-02-20 09:00] VITALS: BP 162/77
[2019-02-20] MEDS: CEFAZOLIN SOD 1 GM/NS 50ML 50 ML IV SCH (09:00)
--- NOTE | 2019-02-20 09:00 | NUR ---
In to give morning meds and found both ports of central cath clotted. The pt. refused insulin. A call was placed to Dr. Nieves for order to use altepase to ope up the line.
[2019-02-20] MEDS: FAMOTIDINE 20 MG TAB PO SCH ×2 (09:14→16:30)
[2019-02-20] MEDS: SODIUM BICARBONATE 650 MG TAB PO SCH (09:15)
[2019-02-20] MEDS: MUPIROCIN 2% OINT 22 GM TUBE TOP SCH ×2 (09:15→17:00)
[2019-02-20] MEDS: NIFEDIPINE CR 30 MG TAB PO SCH ×2 (09:15→14:00)
[2019-02-20] MEDS: FERROUS SULFATE 325 MG TAB PO SCH ×2 (09:15→17:00)
[2019-02-20] MEDS ORDERED: ALTEPLASE 50 MG/VIAL (29 MILLION IU) IV ONE (09:30)
[2019-02-20 11:45] VITALS: BP 170/83
[2019-02-20] MEDS: LEVOFLOXACIN 250MG/D5W 50ML 50 ML IV SCH (12:47)
--- NOTE | 2019-02-20 13:37 | Progress Note ---
DATE: 02/20/2019 SUBJECTIVE: The patient was seen at bedside. His dressings were removed. The wound is granulating. The erythema and edema have not localized. No streaking erythema. No ascending lymphangitis. It is no longer painful on palpation. His white blood counts are trending down. His GFR is also improving. His hemoglobin and hematocrit are also improving. All this was reviewed by me today. Pedal pulses are palpable. Muscle mass is symmetrical intrinsic minus type of foot. ASSESSMENT: 1. Ulcer grade 3, right. 2. Ulcer grade 2, left. PLAN: The marely on the left were removed today and clean dressing was reapplied. I am going to recommend a wound VAC outpatient. He will follow up with me in the Wound Care Center. He is to decrease his ambulation. We discussed a possible custom shoe to prevent ulcers in the future. I have answered all questions and continue to follow. I anticipate discharge today or tomorrow pending Infectious Disease. SONU Pérez/GIOVANNA /[id number]
--- NOTE | 2019-02-20 14:29 | NUR ---
CM SPOKE TO PATIENT AT BEDSIDE REGARDING DISCHARGE PLAN. PATIENT AWARE THAT HE WILL NEED HOME IV ABX INFUSIONS. PATIENT CHOSE TO GO THROUGH INSURANCE AND CHOSE [facility]. CLINICAL SENT TO [facility]. PENDING ACCEPTANCE AND HOME HEALTHS ET UP BY INFUSION COMPANY FOR DISCHARGE. [facility] (P) [phone] EXT. [phone] F) [phone]
[2019-02-20 15:40] VITALS: BP 134/72
--- NOTE | 2019-02-20 18:30 | NUR ---
The pt reports that he is ready to go home and was advised that according to the case consultant note insurance and [facility] is still pending. The pt. reported to me that he has been instructed how to care for his line and that he has spoken to the insurance and they reports that his med is ready for delivery by 1999 today. The pt. is aware that he needs to follow up with wound care on 02/21 for wound vac placement. Nurse manager food notified of the dilemma and will call case management and get back to me.
--- NOTE | 2019-02-21 06:00 | Discharge Summary ---
DISCHARGE DIAGNOSES: 1. Opblt-do-xuyuhix renal failure. 2. Osteomyelitis of the right foot. 3. Diabetes. 4. Hypertension. 5. Anemia. DISPOSITION: The patient was discharged with outpatient IV antibiotics to home. HISTORY OF PRESENT ILLNESS AND HOSPITAL COURSE: The patient is a gentleman, who has had longstanding history of osteomyelitis of the left foot, now recently to the right foot, status post I and D secondary to his diabetes, who was brought and placed on IV antibiotics, I and D performed by Podiatry. The patient has had a history of chronic kidney disease that worsened during the hospital and Dr. Henderson was consulted, who felt like the patient is having troubles with daptomycin and this was discontinued. Upon discontinuation of daptomycin, his kidney functions improved each and each day. Prior to discharge was 3.5 of his creatinine down from above the 5 range, so hopefully we will continue as an outpatient. He has also had issues with low hemoglobin levels secondary to chronic kidney disease and GI issues. He did receive a couple of bags of transfusion while in the hospital. He was seen by Hematology. At the time of discharge, his hemoglobin was doing much better. Once he had his IV antibiotics arranged for outpatient per the culture data from his I and D, he was able to be sent home and follow up with Dr. Valdes, Infectious Disease and Podiatry for the foot as well as with me. Please see all chart for full details. MD YESY Negron/GIOVANNA /[id number]
== END 2019-02-20 18:45 | disposition home or self-care (01) | DRG 853 ==
LOC: ER 13:54 → ERHOLD 18:10 → MED/SURG2 20:07
PROVIDERS: ADMIT Internal Medicine; ATTEND Internal Medicine
PROC: 30233N1 Transfusion of Nonautologous Red Blood Cells into Peripheral Vein, Percutaneous Approach (ICD-10-PCS; 2019-02-13)
PROC: 0JBR0ZZ Excision of Left Foot Subcutaneous Tissue and Fascia, Open Approach (ICD-10-PCS; 2019-02-15)
PROC: 0QBN0ZZ Excision of Right Metatarsal, Open Approach (ICD-10-PCS; 2019-02-15)
PROC: 0QBQ0ZZ Excision of Right Toe Phalanx, Open Approach (ICD-10-PCS; principal; 2019-02-15 11:00)
DX: A41.9 Sepsis, unspecified organism (principal); N17.0 Acute kidney failure with tubular necrosis; L97.526 Non-pressure chronic ulcer of other part of left foot with bone involvement without evidence of necrosis; L97.516 Non-pressure chronic ulcer of other part of right foot with bone involvement without evidence of necrosis; L03.115 Cellulitis of right lower limb; N18.4 Chronic kidney disease, stage 4 (severe); M86.171 Other acute osteomyelitis, right ankle and foot; E87.1 Hypo-osmolality and hyponatremia; R65.20 Severe sepsis without septic shock; E11.622 Type 2 diabetes mellitus with other skin ulcer; D64.9 Anemia, unspecified; E11.22 Type 2 diabetes mellitus with diabetic chronic kidney disease; I12.9 Hypertensive chronic kidney disease with stage 1 through stage 4 chronic kidney disease, or unspecified chronic kidney disease; E11.51 Type 2 diabetes mellitus with diabetic peripheral angiopathy without gangrene; Z82.49 Family history of ischemic heart disease and other diseases of the circulatory system; E11.621 Type 2 diabetes mellitus with foot ulcer; N25.89 Other disorders resulting from impaired renal tubular function; L97.511 Non-pressure chronic ulcer of other part of right foot limited to breakdown of skin; B96.5 Pseudomonas (aeruginosa) (mallei) (pseudomallei) as the cause of diseases classified elsewhere; B95.61 Methicillin susceptible Staphylococcus aureus infection as the cause of diseases classified elsewhere; B96.1 Klebsiella pneumoniae [K. pneumoniae] as the cause of diseases classified elsewhere; D50.9 Iron deficiency anemia, unspecified; D63.1 Anemia in chronic kidney disease
CPT/HCPCS: 36415; 71046; 76770; 80048; 80053; 81001; 82550; 82570; 82728; 82948; 83540; 83605; 83735; 84156; 84466; 85025; 85651; 86140; 86850; 86900; 86920; 87040; 87071; 87075; 87102; 87186; 87205; 87206; 87400; 97605; 99284; J0690; J1580; J1756; J1817; J1956; J2001; J2270; J2405; J2543; J2997; J7030; J7050; J7070; P9016; Q4081

== ENCOUNTER → 2019-02-12 | Outpatient (CLI) | payer BC | LOC: WCC 15:11 | PROVIDERS: ATTEND Podiatrist Foot & Ankle Surgery | DX: E11.621 Type 2 diabetes mellitus with foot ulcer (principal); A49.01 Methicillin susceptible Staphylococcus aureus infection, unspecified site; B96.5 Pseudomonas (aeruginosa) (mallei) (pseudomallei) as the cause of diseases classified elsewhere; B96.89 Other specified bacterial agents as the cause of diseases classified elsewhere; L97.411 Non-pressure chronic ulcer of right heel and midfoot limited to breakdown of skin; L97.429 Non-pressure chronic ulcer of left heel and midfoot with unspecified severity; L97.519 Non-pressure chronic ulcer of other part of right foot with unspecified severity; M86.18 Other acute osteomyelitis, other site; D50.9 Iron deficiency anemia, unspecified; I10 Essential (primary) hypertension; M86.172 Other acute osteomyelitis, left ankle and foot; N28.9 Disorder of kidney and ureter, unspecified; Z01.810 Encounter for preprocedural cardiovascular examination; Z01.811 Encounter for preprocedural respiratory examination ==

== ENCOUNTER → 2019-02-21 | Outpatient (CLI) | payer BC | LOC: WCC 14:38 | PROVIDERS: ATTEND Podiatrist Foot & Ankle Surgery | DX: E11.621 Type 2 diabetes mellitus with foot ulcer (principal); M86.172 Other acute osteomyelitis, left ankle and foot; M86.18 Other acute osteomyelitis, other site; L97.429 Non-pressure chronic ulcer of left heel and midfoot with unspecified severity; L97.519 Non-pressure chronic ulcer of other part of right foot with unspecified severity; L97.411 Non-pressure chronic ulcer of right heel and midfoot limited to breakdown of skin; N28.9 Disorder of kidney and ureter, unspecified; I10 Essential (primary) hypertension; B96.89 Other specified bacterial agents as the cause of diseases classified elsewhere; B96.5 Pseudomonas (aeruginosa) (mallei) (pseudomallei) as the cause of diseases classified elsewhere; A49.01 Methicillin susceptible Staphylococcus aureus infection, unspecified site; D50.9 Iron deficiency anemia, unspecified; Z01.810 Encounter for preprocedural cardiovascular examination; Z01.811 Encounter for preprocedural respiratory examination ==

== ENCOUNTER → 2019-02-22 | Outpatient (CLI) | payer BC | LOC: WCC 09:02 | PROVIDERS: ATTEND Podiatrist Foot & Ankle Surgery | DX: E11.621 Type 2 diabetes mellitus with foot ulcer (principal); M86.172 Other acute osteomyelitis, left ankle and foot; M86.18 Other acute osteomyelitis, other site; L97.429 Non-pressure chronic ulcer of left heel and midfoot with unspecified severity; L97.411 Non-pressure chronic ulcer of right heel and midfoot limited to breakdown of skin; L97.519 Non-pressure chronic ulcer of other part of right foot with unspecified severity; N28.9 Disorder of kidney and ureter, unspecified; I10 Essential (primary) hypertension; A49.01 Methicillin susceptible Staphylococcus aureus infection, unspecified site; B96.5 Pseudomonas (aeruginosa) (mallei) (pseudomallei) as the cause of diseases classified elsewhere; B96.89 Other specified bacterial agents as the cause of diseases classified elsewhere; D50.9 Iron deficiency anemia, unspecified; Z01.810 Encounter for preprocedural cardiovascular examination; Z01.811 Encounter for preprocedural respiratory examination ==

== ENCOUNTER → 2019-02-23 | Outpatient (CLI) | payer BC | LOC: WCC 11:28 | PROVIDERS: ATTEND Podiatrist Foot & Ankle Surgery | DX: E11.621 Type 2 diabetes mellitus with foot ulcer (principal); M86.172 Other acute osteomyelitis, left ankle and foot; M86.18 Other acute osteomyelitis, other site; L97.411 Non-pressure chronic ulcer of right heel and midfoot limited to breakdown of skin; L97.429 Non-pressure chronic ulcer of left heel and midfoot with unspecified severity; L97.519 Non-pressure chronic ulcer of other part of right foot with unspecified severity; N28.9 Disorder of kidney and ureter, unspecified; I10 Essential (primary) hypertension; A49.01 Methicillin susceptible Staphylococcus aureus infection, unspecified site; B96.5 Pseudomonas (aeruginosa) (mallei) (pseudomallei) as the cause of diseases classified elsewhere; B96.89 Other specified bacterial agents as the cause of diseases classified elsewhere; D50.9 Iron deficiency anemia, unspecified; Z01.810 Encounter for preprocedural cardiovascular examination; Z01.811 Encounter for preprocedural respiratory examination ==

== ENCOUNTER → 2019-02-26 | Outpatient (CLI) | payer BC | LOC: WCC 11:36 | PROVIDERS: ATTEND Podiatrist Foot & Ankle Surgery | DX: E11.621 Type 2 diabetes mellitus with foot ulcer (principal); M86.172 Other acute osteomyelitis, left ankle and foot; M86.18 Other acute osteomyelitis, other site; L97.411 Non-pressure chronic ulcer of right heel and midfoot limited to breakdown of skin; L97.429 Non-pressure chronic ulcer of left heel and midfoot with unspecified severity; L97.519 Non-pressure chronic ulcer of other part of right foot with unspecified severity; A49.01 Methicillin susceptible Staphylococcus aureus infection, unspecified site; N28.9 Disorder of kidney and ureter, unspecified; I10 Essential (primary) hypertension; B96.5 Pseudomonas (aeruginosa) (mallei) (pseudomallei) as the cause of diseases classified elsewhere; B96.89 Other specified bacterial agents as the cause of diseases classified elsewhere; D50.9 Iron deficiency anemia, unspecified; Z01.810 Encounter for preprocedural cardiovascular examination; Z01.811 Encounter for preprocedural respiratory examination | CPT/HCPCS: 11042; G0277 ==

== ENCOUNTER → 2019-02-28 | Outpatient (CLI) | payer BC | LOC: WCC 08:28 | PROVIDERS: ATTEND Podiatrist Foot & Ankle Surgery | DX: E11.621 Type 2 diabetes mellitus with foot ulcer (principal); M86.172 Other acute osteomyelitis, left ankle and foot; M86.18 Other acute osteomyelitis, other site; L97.429 Non-pressure chronic ulcer of left heel and midfoot with unspecified severity; L97.519 Non-pressure chronic ulcer of other part of right foot with unspecified severity; L97.411 Non-pressure chronic ulcer of right heel and midfoot limited to breakdown of skin; N28.9 Disorder of kidney and ureter, unspecified; I10 Essential (primary) hypertension; B96.89 Other specified bacterial agents as the cause of diseases classified elsewhere; B96.5 Pseudomonas (aeruginosa) (mallei) (pseudomallei) as the cause of diseases classified elsewhere; A49.01 Methicillin susceptible Staphylococcus aureus infection, unspecified site; D50.9 Iron deficiency anemia, unspecified; Z01.810 Encounter for preprocedural cardiovascular examination; Z01.811 Encounter for preprocedural respiratory examination ==

== ENCOUNTER → 2019-03-01 | Outpatient (CLI) | payer BC ==
[~2019-03-01] MED LIST changes: +MINERAL OIL/PETROLAT/GLYCERI 2OZ CRM ONE; +MINERAL OIL/PETROLAT/GLYCERI 6OZ BTL ONE
== END ==
LOC: WCC 10:36
PROVIDERS: ATTEND Podiatrist Foot & Ankle Surgery
DX: E11.621 Type 2 diabetes mellitus with foot ulcer (principal); M86.172 Other acute osteomyelitis, left ankle and foot; M86.18 Other acute osteomyelitis, other site; L97.429 Non-pressure chronic ulcer of left heel and midfoot with unspecified severity; L97.519 Non-pressure chronic ulcer of other part of right foot with unspecified severity; L97.411 Non-pressure chronic ulcer of right heel and midfoot limited to breakdown of skin; N28.9 Disorder of kidney and ureter, unspecified; I10 Essential (primary) hypertension; B96.89 Other specified bacterial agents as the cause of diseases classified elsewhere; B96.5 Pseudomonas (aeruginosa) (mallei) (pseudomallei) as the cause of diseases classified elsewhere; A49.01 Methicillin susceptible Staphylococcus aureus infection, unspecified site; D50.9 Iron deficiency anemia, unspecified; Z01.810 Encounter for preprocedural cardiovascular examination; Z01.811 Encounter for preprocedural respiratory examination
CPT/HCPCS: 36415; 82948; G0277

== ENCOUNTER → 2019-03-05 | Outpatient (CLI) | payer BC ==
[~2019-03-05] MED LIST changes: -MINERAL OIL/PETROLAT/GLYCERI 2OZ CRM ONE; -MINERAL OIL/PETROLAT/GLYCERI 6OZ BTL ONE
== END ==
LOC: WCC 13:23
PROVIDERS: ATTEND Podiatrist Foot & Ankle Surgery
DX: E11.621 Type 2 diabetes mellitus with foot ulcer (principal); A40.9 Streptococcal sepsis, unspecified; M86.172 Other acute osteomyelitis, left ankle and foot; M86.18 Other acute osteomyelitis, other site; L97.429 Non-pressure chronic ulcer of left heel and midfoot with unspecified severity; L97.411 Non-pressure chronic ulcer of right heel and midfoot limited to breakdown of skin; L97.519 Non-pressure chronic ulcer of other part of right foot with unspecified severity; N28.9 Disorder of kidney and ureter, unspecified; I10 Essential (primary) hypertension; B96.5 Pseudomonas (aeruginosa) (mallei) (pseudomallei) as the cause of diseases classified elsewhere; B96.89 Other specified bacterial agents as the cause of diseases classified elsewhere; D50.9 Iron deficiency anemia, unspecified; Z01.810 Encounter for preprocedural cardiovascular examination; Z01.811 Encounter for preprocedural respiratory examination
CPT/HCPCS: 11042; G0277

== ENCOUNTER → 2019-03-07 | Outpatient (CLI) | payer BC | LOC: WCC 11:33 | PROVIDERS: ATTEND Podiatrist Foot & Ankle Surgery | DX: E11.621 Type 2 diabetes mellitus with foot ulcer (principal); M86.172 Other acute osteomyelitis, left ankle and foot; M86.18 Other acute osteomyelitis, other site; L97.429 Non-pressure chronic ulcer of left heel and midfoot with unspecified severity; L97.411 Non-pressure chronic ulcer of right heel and midfoot limited to breakdown of skin; L97.519 Non-pressure chronic ulcer of other part of right foot with unspecified severity; B96.89 Other specified bacterial agents as the cause of diseases classified elsewhere; N28.9 Disorder of kidney and ureter, unspecified; I10 Essential (primary) hypertension; B96.5 Pseudomonas (aeruginosa) (mallei) (pseudomallei) as the cause of diseases classified elsewhere; A49.01 Methicillin susceptible Staphylococcus aureus infection, unspecified site; D50.9 Iron deficiency anemia, unspecified; Z01.810 Encounter for preprocedural cardiovascular examination; Z01.811 Encounter for preprocedural respiratory examination ==

== ENCOUNTER → 2019-03-09 | Outpatient (CLI) | payer BC | LOC: WCC 13:15 | PROVIDERS: ATTEND Podiatrist Foot & Ankle Surgery | DX: E11.621 Type 2 diabetes mellitus with foot ulcer (principal); M86.172 Other acute osteomyelitis, left ankle and foot; M86.18 Other acute osteomyelitis, other site; L97.429 Non-pressure chronic ulcer of left heel and midfoot with unspecified severity; L97.411 Non-pressure chronic ulcer of right heel and midfoot limited to breakdown of skin; L97.519 Non-pressure chronic ulcer of other part of right foot with unspecified severity; N28.9 Disorder of kidney and ureter, unspecified; I10 Essential (primary) hypertension; A49.01 Methicillin susceptible Staphylococcus aureus infection, unspecified site; B96.5 Pseudomonas (aeruginosa) (mallei) (pseudomallei) as the cause of diseases classified elsewhere; B96.89 Other specified bacterial agents as the cause of diseases classified elsewhere; D50.9 Iron deficiency anemia, unspecified; Z01.810 Encounter for preprocedural cardiovascular examination; Z01.811 Encounter for preprocedural respiratory examination ==

== ENCOUNTER → 2019-03-12 | Outpatient (CLI) | payer BC, SELFPAY ==
--- NOTE | 2019-03-12 19:50 | Diagnostic Imaging Report ---
EXAM: CHEST 2 VIEWS DATE: 03/12/2019 3:24 PM INDICATION: ^[id number] ^1530 ^CHECK LINE PLACEMENT COMPARISON: Chest x-ray, 02/12/2019 FINDINGS: Lines and tubes: Right subclavian catheter is coiled in the supraclavicular area. It is uncertain if this is within the vein or outside the entry site. The catheter tip extends to the mid SVC level. Heart size normal. No focal pulmonary opacity, pleural effusion or pneumothorax. Upper abdomen unremarkable. IMPRESSION: 1. No evidence for acute disease in the chest. 2. Right subclavian catheter is coiled in the supraclavicular area. This may be coiled within the subclavian vein or external to the entry site on the skin. Catheter extends to mid SVC level. No pneumothorax. Signed by: Dr. Phi Eller M.D. on 03/12/2019 7:47 PM
== END ==
LOC: RAD 15:17
PROVIDERS: ATTEND Podiatrist Foot & Ankle Surgery
DX: Z01.810 Encounter for preprocedural cardiovascular examination (principal)
CPT/HCPCS: 71046

== ENCOUNTER → 2019-03-12 | Outpatient (CLI) | payer BC | LOC: WCC 13:12 | PROVIDERS: ATTEND Podiatrist Foot & Ankle Surgery | DX: E11.621 Type 2 diabetes mellitus with foot ulcer (principal); M86.172 Other acute osteomyelitis, left ankle and foot; M86.18 Other acute osteomyelitis, other site; L97.429 Non-pressure chronic ulcer of left heel and midfoot with unspecified severity; L97.411 Non-pressure chronic ulcer of right heel and midfoot limited to breakdown of skin; L97.519 Non-pressure chronic ulcer of other part of right foot with unspecified severity; R60.0 Localized edema; N28.9 Disorder of kidney and ureter, unspecified; I10 Essential (primary) hypertension; A49.01 Methicillin susceptible Staphylococcus aureus infection, unspecified site; B96.5 Pseudomonas (aeruginosa) (mallei) (pseudomallei) as the cause of diseases classified elsewhere; B96.89 Other specified bacterial agents as the cause of diseases classified elsewhere; D50.9 Iron deficiency anemia, unspecified; Z01.810 Encounter for preprocedural cardiovascular examination; Z01.811 Encounter for preprocedural respiratory examination ==

== ENCOUNTER → 2019-03-13 | Outpatient (CLI) | payer BC | LOC: WCC 13:42 | PROVIDERS: ATTEND Podiatrist Foot & Ankle Surgery | DX: E11.621 Type 2 diabetes mellitus with foot ulcer (principal); M86.172 Other acute osteomyelitis, left ankle and foot; M86.18 Other acute osteomyelitis, other site; L97.429 Non-pressure chronic ulcer of left heel and midfoot with unspecified severity; L97.519 Non-pressure chronic ulcer of other part of right foot with unspecified severity; L97.411 Non-pressure chronic ulcer of right heel and midfoot limited to breakdown of skin; N28.9 Disorder of kidney and ureter, unspecified; I10 Essential (primary) hypertension; B96.5 Pseudomonas (aeruginosa) (mallei) (pseudomallei) as the cause of diseases classified elsewhere; A49.01 Methicillin susceptible Staphylococcus aureus infection, unspecified site; D50.9 Iron deficiency anemia, unspecified; Z01.810 Encounter for preprocedural cardiovascular examination; Z01.811 Encounter for preprocedural respiratory examination ==

== ENCOUNTER → 2019-03-14 | Outpatient (CLI) | payer BC | LOC: WCC 13:11 | PROVIDERS: ATTEND Podiatrist Foot & Ankle Surgery | DX: E11.621 Type 2 diabetes mellitus with foot ulcer (principal); M86.172 Other acute osteomyelitis, left ankle and foot; M86.18 Other acute osteomyelitis, other site; L97.429 Non-pressure chronic ulcer of left heel and midfoot with unspecified severity; L97.519 Non-pressure chronic ulcer of other part of right foot with unspecified severity; L97.411 Non-pressure chronic ulcer of right heel and midfoot limited to breakdown of skin; R60.0 Localized edema; N28.9 Disorder of kidney and ureter, unspecified; I10 Essential (primary) hypertension; B96.89 Other specified bacterial agents as the cause of diseases classified elsewhere; B96.5 Pseudomonas (aeruginosa) (mallei) (pseudomallei) as the cause of diseases classified elsewhere; A49.01 Methicillin susceptible Staphylococcus aureus infection, unspecified site; D50.9 Iron deficiency anemia, unspecified; Z01.810 Encounter for preprocedural cardiovascular examination; Z01.811 Encounter for preprocedural respiratory examination ==

== ENCOUNTER → 2019-03-16 | Outpatient (CLI) | payer BC ==
[~2019-03-16] MED LIST changes: +MINERAL OIL/PETROLAT/GLYCERI 2OZ CRM ONE; +MINERAL OIL/PETROLAT/GLYCERI 6OZ BTL ONE
== END ==
LOC: WCC 12:51
PROVIDERS: ATTEND Podiatrist Foot & Ankle Surgery
DX: E11.621 Type 2 diabetes mellitus with foot ulcer (principal); M86.172 Other acute osteomyelitis, left ankle and foot; M86.18 Other acute osteomyelitis, other site; L97.429 Non-pressure chronic ulcer of left heel and midfoot with unspecified severity; L97.411 Non-pressure chronic ulcer of right heel and midfoot limited to breakdown of skin; L97.519 Non-pressure chronic ulcer of other part of right foot with unspecified severity; R60.0 Localized edema; N28.9 Disorder of kidney and ureter, unspecified; I10 Essential (primary) hypertension; A49.01 Methicillin susceptible Staphylococcus aureus infection, unspecified site; B96.5 Pseudomonas (aeruginosa) (mallei) (pseudomallei) as the cause of diseases classified elsewhere; B96.89 Other specified bacterial agents as the cause of diseases classified elsewhere; D50.9 Iron deficiency anemia, unspecified; Z01.810 Encounter for preprocedural cardiovascular examination; Z01.811 Encounter for preprocedural respiratory examination
CPT/HCPCS: 36415; 82948

== ENCOUNTER → 2019-03-19 | Outpatient (CLI) | payer BC ==
[~2019-03-19] MED LIST changes: -MINERAL OIL/PETROLAT/GLYCERI 2OZ CRM ONE; -MINERAL OIL/PETROLAT/GLYCERI 6OZ BTL ONE
== END ==
LOC: WCC 11:36
PROVIDERS: ATTEND Podiatrist Foot & Ankle Surgery
DX: E11.621 Type 2 diabetes mellitus with foot ulcer (principal); M86.172 Other acute osteomyelitis, left ankle and foot; M86.18 Other acute osteomyelitis, other site; L97.429 Non-pressure chronic ulcer of left heel and midfoot with unspecified severity; L97.519 Non-pressure chronic ulcer of other part of right foot with unspecified severity; L97.411 Non-pressure chronic ulcer of right heel and midfoot limited to breakdown of skin; R60.0 Localized edema; N28.9 Disorder of kidney and ureter, unspecified; I10 Essential (primary) hypertension; B96.89 Other specified bacterial agents as the cause of diseases classified elsewhere; B96.5 Pseudomonas (aeruginosa) (mallei) (pseudomallei) as the cause of diseases classified elsewhere; A49.01 Methicillin susceptible Staphylococcus aureus infection, unspecified site; D50.9 Iron deficiency anemia, unspecified; Z01.810 Encounter for preprocedural cardiovascular examination; Z01.811 Encounter for preprocedural respiratory examination
CPT/HCPCS: 29581; G0277

== ENCOUNTER → 2019-03-20 | Outpatient (CLI) | payer BC ==
[~2019-03-20] MED LIST changes: +LIDOCAINE HCL 1% LOCAL INJ 20 ML VIAL ONE
--- NOTE | 2019-03-20 15:09 | Diagnostic Imaging Report ---
Catheter removal, 03/20/2019. Overlying bandaging was removed and the right IJ nontunneled central line catheter was removed intact without difficulty. Post x-ray demonstrates no residual catheter. Fluoroscopy time: 0.01 minutes Dose-area Product: 0.12 Gycm2. Signed by: Elvin Olivera on 03/20/2019 3:06 PM
== END ==
LOC: WCC 13:51
PROVIDERS: ATTEND Podiatrist Foot & Ankle Surgery
DX: E11.621 Type 2 diabetes mellitus with foot ulcer (principal); M86.172 Other acute osteomyelitis, left ankle and foot; M86.18 Other acute osteomyelitis, other site; L97.429 Non-pressure chronic ulcer of left heel and midfoot with unspecified severity; L97.411 Non-pressure chronic ulcer of right heel and midfoot limited to breakdown of skin; L97.519 Non-pressure chronic ulcer of other part of right foot with unspecified severity; R60.0 Localized edema; N28.9 Disorder of kidney and ureter, unspecified; I10 Essential (primary) hypertension; D50.9 Iron deficiency anemia, unspecified; Z01.810 Encounter for preprocedural cardiovascular examination; Z01.811 Encounter for preprocedural respiratory examination
CPT/HCPCS: 29581; 36589; 77001; G0277; J2001

== ENCOUNTER → 2019-03-22 | Outpatient (CLI) | payer BC ==
[~2019-03-22] MED LIST changes: -LIDOCAINE HCL 1% LOCAL INJ 20 ML VIAL ONE
== END ==
LOC: WCC 12:12
PROVIDERS: ATTEND Podiatrist Foot & Ankle Surgery
DX: E11.621 Type 2 diabetes mellitus with foot ulcer (principal); M86.172 Other acute osteomyelitis, left ankle and foot; M86.18 Other acute osteomyelitis, other site; L97.429 Non-pressure chronic ulcer of left heel and midfoot with unspecified severity; L97.519 Non-pressure chronic ulcer of other part of right foot with unspecified severity; L97.411 Non-pressure chronic ulcer of right heel and midfoot limited to breakdown of skin; R60.0 Localized edema; N28.9 Disorder of kidney and ureter, unspecified; I10 Essential (primary) hypertension; D50.9 Iron deficiency anemia, unspecified; Z01.810 Encounter for preprocedural cardiovascular examination; Z01.811 Encounter for preprocedural respiratory examination
CPT/HCPCS: 29581; G0277

== ENCOUNTER → 2019-03-23 | Outpatient (CLI) | payer BC | LOC: WCC 12:04 | PROVIDERS: ATTEND Podiatrist Foot & Ankle Surgery | DX: E11.621 Type 2 diabetes mellitus with foot ulcer (principal); M86.172 Other acute osteomyelitis, left ankle and foot; L97.429 Non-pressure chronic ulcer of left heel and midfoot with unspecified severity; L97.411 Non-pressure chronic ulcer of right heel and midfoot limited to breakdown of skin; L97.519 Non-pressure chronic ulcer of other part of right foot with unspecified severity; R60.0 Localized edema; N28.9 Disorder of kidney and ureter, unspecified; I10 Essential (primary) hypertension; D50.9 Iron deficiency anemia, unspecified; Z01.810 Encounter for preprocedural cardiovascular examination; Z01.811 Encounter for preprocedural respiratory examination | CPT/HCPCS: 29581; G0277 ==

== ENCOUNTER → 2019-03-26 | Outpatient (CLI) | payer BC | LOC: WCC 13:03 | PROVIDERS: ATTEND Podiatrist Foot & Ankle Surgery | DX: E11.621 Type 2 diabetes mellitus with foot ulcer (principal); M86.172 Other acute osteomyelitis, left ankle and foot; L97.429 Non-pressure chronic ulcer of left heel and midfoot with unspecified severity; L97.411 Non-pressure chronic ulcer of right heel and midfoot limited to breakdown of skin; L97.519 Non-pressure chronic ulcer of other part of right foot with unspecified severity; R60.0 Localized edema; N28.9 Disorder of kidney and ureter, unspecified; I10 Essential (primary) hypertension; D50.9 Iron deficiency anemia, unspecified; Z01.810 Encounter for preprocedural cardiovascular examination; Z01.811 Encounter for preprocedural respiratory examination | CPT/HCPCS: 11042; 99213; G0277 ==

== ENCOUNTER → 2019-03-27 | Outpatient (CLI) | payer BC | LOC: WCC 12:27 | PROVIDERS: ATTEND Podiatrist Foot & Ankle Surgery | DX: E11.621 Type 2 diabetes mellitus with foot ulcer (principal); M86.172 Other acute osteomyelitis, left ankle and foot; L97.429 Non-pressure chronic ulcer of left heel and midfoot with unspecified severity; L97.411 Non-pressure chronic ulcer of right heel and midfoot limited to breakdown of skin; L97.519 Non-pressure chronic ulcer of other part of right foot with unspecified severity; R60.0 Localized edema; N28.9 Disorder of kidney and ureter, unspecified; I10 Essential (primary) hypertension; D50.9 Iron deficiency anemia, unspecified; Z01.810 Encounter for preprocedural cardiovascular examination; Z01.811 Encounter for preprocedural respiratory examination ==

== ENCOUNTER → 2019-03-28 | Outpatient (CLI) | payer BC | LOC: WCC 13:34 | PROVIDERS: ATTEND Podiatrist Foot & Ankle Surgery | DX: E11.621 Type 2 diabetes mellitus with foot ulcer (principal); M86.172 Other acute osteomyelitis, left ankle and foot; L97.429 Non-pressure chronic ulcer of left heel and midfoot with unspecified severity; L97.411 Non-pressure chronic ulcer of right heel and midfoot limited to breakdown of skin; L97.519 Non-pressure chronic ulcer of other part of right foot with unspecified severity; R60.0 Localized edema; N28.9 Disorder of kidney and ureter, unspecified; I10 Essential (primary) hypertension; D50.9 Iron deficiency anemia, unspecified; Z01.810 Encounter for preprocedural cardiovascular examination; Z01.811 Encounter for preprocedural respiratory examination ==

== ENCOUNTER → 2019-03-29 | Outpatient (CLI) | payer BC | LOC: WCC 10:27 | PROVIDERS: ATTEND Podiatrist Foot & Ankle Surgery | DX: E11.621 Type 2 diabetes mellitus with foot ulcer (principal); M86.172 Other acute osteomyelitis, left ankle and foot; L97.429 Non-pressure chronic ulcer of left heel and midfoot with unspecified severity; L97.411 Non-pressure chronic ulcer of right heel and midfoot limited to breakdown of skin; L97.519 Non-pressure chronic ulcer of other part of right foot with unspecified severity; R60.0 Localized edema; N28.9 Disorder of kidney and ureter, unspecified; I10 Essential (primary) hypertension; D50.9 Iron deficiency anemia, unspecified; Z01.810 Encounter for preprocedural cardiovascular examination; Z01.811 Encounter for preprocedural respiratory examination ==

== ENCOUNTER → 2019-03-30 | Outpatient (CLI) | payer BC | LOC: WCC 11:58 | PROVIDERS: ATTEND Podiatrist Foot & Ankle Surgery | DX: E11.621 Type 2 diabetes mellitus with foot ulcer (principal); M86.172 Other acute osteomyelitis, left ankle and foot; L97.429 Non-pressure chronic ulcer of left heel and midfoot with unspecified severity; L97.411 Non-pressure chronic ulcer of right heel and midfoot limited to breakdown of skin; L97.519 Non-pressure chronic ulcer of other part of right foot with unspecified severity; R60.0 Localized edema; N28.9 Disorder of kidney and ureter, unspecified; I10 Essential (primary) hypertension; D50.9 Iron deficiency anemia, unspecified; Z01.810 Encounter for preprocedural cardiovascular examination; Z01.811 Encounter for preprocedural respiratory examination ==

== ENCOUNTER → 2019-04-03 | Outpatient (CLI) | payer BC ==
[~2019-04-03] MED LIST changes: +COLLAGENASE OINTMENT 30 GM TUBE ONE; +LIDOCAINE/PRILOCAINE 2.5-2.5% KIT ONE; +MINERAL OIL/PETROLAT/GLYCERI 6OZ BTL ONE
== END ==
LOC: WCC 12:25
PROVIDERS: ATTEND Podiatrist Foot & Ankle Surgery
DX: E11.621 Type 2 diabetes mellitus with foot ulcer (principal); M86.172 Other acute osteomyelitis, left ankle and foot; L97.429 Non-pressure chronic ulcer of left heel and midfoot with unspecified severity; L97.411 Non-pressure chronic ulcer of right heel and midfoot limited to breakdown of skin; L97.519 Non-pressure chronic ulcer of other part of right foot with unspecified severity; R60.0 Localized edema; N28.9 Disorder of kidney and ureter, unspecified; I10 Essential (primary) hypertension; D50.9 Iron deficiency anemia, unspecified; Z01.810 Encounter for preprocedural cardiovascular examination; Z01.811 Encounter for preprocedural respiratory examination
CPT/HCPCS: 36415; 82948

== ENCOUNTER → 2019-04-04 | Outpatient (CLI) | payer BC ==
[~2019-04-04] MED LIST changes: -COLLAGENASE OINTMENT 30 GM TUBE ONE; -LIDOCAINE/PRILOCAINE 2.5-2.5% KIT ONE; -MINERAL OIL/PETROLAT/GLYCERI 6OZ BTL ONE
== END ==
LOC: WCC 14:10
PROVIDERS: ATTEND Podiatrist Foot & Ankle Surgery
DX: E11.621 Type 2 diabetes mellitus with foot ulcer (principal); M86.172 Other acute osteomyelitis, left ankle and foot; L97.429 Non-pressure chronic ulcer of left heel and midfoot with unspecified severity; L97.411 Non-pressure chronic ulcer of right heel and midfoot limited to breakdown of skin; L97.519 Non-pressure chronic ulcer of other part of right foot with unspecified severity; R60.0 Localized edema; N28.9 Disorder of kidney and ureter, unspecified; I10 Essential (primary) hypertension; D50.9 Iron deficiency anemia, unspecified; Z01.810 Encounter for preprocedural cardiovascular examination; Z01.811 Encounter for preprocedural respiratory examination

== ENCOUNTER → 2019-04-05 | Outpatient (CLI) | payer BC | LOC: WCC 04-04 16:12 | PROVIDERS: ATTEND Internal Medicine Pulmonary Disease | DX: E11.621 Type 2 diabetes mellitus with foot ulcer (principal); M86.172 Other acute osteomyelitis, left ankle and foot; L97.429 Non-pressure chronic ulcer of left heel and midfoot with unspecified severity; L97.519 Non-pressure chronic ulcer of other part of right foot with unspecified severity; L97.411 Non-pressure chronic ulcer of right heel and midfoot limited to breakdown of skin; R60.0 Localized edema; N28.9 Disorder of kidney and ureter, unspecified; I10 Essential (primary) hypertension; D50.9 Iron deficiency anemia, unspecified; Z01.810 Encounter for preprocedural cardiovascular examination; Z01.811 Encounter for preprocedural respiratory examination ==

== ENCOUNTER → 2019-04-06 | Outpatient (CLI) | payer BC | LOC: WCC 13:03 | PROVIDERS: ATTEND Podiatrist Foot & Ankle Surgery | DX: E11.621 Type 2 diabetes mellitus with foot ulcer (principal); M86.172 Other acute osteomyelitis, left ankle and foot; L97.411 Non-pressure chronic ulcer of right heel and midfoot limited to breakdown of skin; L97.429 Non-pressure chronic ulcer of left heel and midfoot with unspecified severity; L97.519 Non-pressure chronic ulcer of other part of right foot with unspecified severity; R60.0 Localized edema; N28.9 Disorder of kidney and ureter, unspecified; I10 Essential (primary) hypertension; D50.9 Iron deficiency anemia, unspecified; Z01.810 Encounter for preprocedural cardiovascular examination; Z01.811 Encounter for preprocedural respiratory examination ==

== ENCOUNTER → 2019-04-09 | Outpatient (CLI) | payer BC | LOC: WCC 13:22 | PROVIDERS: ATTEND Podiatrist Foot & Ankle Surgery | DX: E11.621 Type 2 diabetes mellitus with foot ulcer (principal); M86.172 Other acute osteomyelitis, left ankle and foot; L97.429 Non-pressure chronic ulcer of left heel and midfoot with unspecified severity; L97.411 Non-pressure chronic ulcer of right heel and midfoot limited to breakdown of skin; L97.519 Non-pressure chronic ulcer of other part of right foot with unspecified severity; R60.0 Localized edema; N28.9 Disorder of kidney and ureter, unspecified; I10 Essential (primary) hypertension; D50.9 Iron deficiency anemia, unspecified; Z01.810 Encounter for preprocedural cardiovascular examination; Z01.811 Encounter for preprocedural respiratory examination ==

== ENCOUNTER → 2019-04-10 | Day surgery (SDC) | payer BC ==
[2019-04-09 12:37] LABS: ANION GAP 15.4 mmol/L (8-16); CALCIUM 8.4 mg/dL (8.4-10.2); CREATININE, SERUM 4.93 mg/dL (0.72-1.25); POTASSIUM 5.4 mmol/L (3.5-5.1)
[~2019-04-10] MED LIST changes: +ACETAMINOPHEN 1000 MG/100 ML IV ONE; +BACITRACIN 50,000 UNIT VIAL ONE; +BUPIVACAINE HCL 0.5% INJ 30 ML VIAL INJ ONE; +CEFAZOLIN SOD 1 GM/NS 50ML 50 ML IV ONE; +DEXAMETHASONE SOD PHOS INJ 4 MG/ML VIAL ONE; +FENTANYL CITRATE/PF 100MCG/2 ML INJ ONE; +LIDOCAINE HCL 2% LOCAL INJ 5 ML SDV VIAL INJ ONE; +MIDAZOLAM HCL 2 MG/2 ML VIAL ONE; +NEOSTIGMINE 1 MG/ML 10ML VIAL ONE; +ONDANSETRON HCL INJ 2MG/ML 2ML 2 MG/ML VIAL ONE; +PROPOFOL IV EMULSION 10 MG/ML 20 ML VIAL ONE
[2019-04-10 11:10] VITALS: BP 131/75
--- NOTE | 2019-04-17 12:50 | Operative Report ---
DATE OF PROCEDURE: 04/10/2019 SURGEON: Elsy Gay DPM PROCEDURES: 1. Right 4th digit amputation. 2. Left 4th medial head resection. 3. Left 5th debridement of ulcer to bone. 4. Use of a graft application to the left 5th ulcer. CROSS COUNTRY COACH: None. ANESTHESIA: MAC anesthetic with a local block consisting of 20 mL. HEMOSTASIS: None. ESTIMATED BLOOD LOSS: Less than 20 mL. MATERIALS: Allograft 4 x 8 cm, lot #[id number], expiration July 21, 2020, reference #[id number]. COMPLICATIONS: None. CONDITION: Stable. PROCEDURE IN DETAIL: Under mild sedation, the patient was brought to the operating room and placed on the operating table in supine position. Following IV sedation, anesthesia was obtained with a MAC anesthetic. At this point, the foot, right lower extremity was scrubbed, prepped, and draped in the usual aseptic manner and there were lowered to the table. Attention was then directed to the dorsal aspect of the right foot, where right at the gangrenous 4th [facility] was made. The incision was deepened down to the level of the MPJ joint. The toe was then disarticulated. It was passed from the operating table. All nonviable tissue was removed. The tendons were then cut proximally in order to retract. Cultures and sensitivities were taken of the area and the area was then flushed with copious amount of irrigation with the pulse unhairing inspector. Attention was then directed to the medial aspect of the left metatarsal, where linear incision was made overlying the 4th metatarsal. The incision was deepened down to the level of the metatarsal. Once the metatarsal was visualized, the head of 4th metatarsal was removed. It was passed from the operating table. The area was then flushed with copious amount of normal sterile saline solution. Please note that the left 4th was performed before the right 4th since this was a clean incision. Attention was then directed to the left 5th ulcer, where utilizing a combination of bone rongeur and curette, all nonviable tissue was removed down to the level of clean viable tissue. The area was also irrigated with a pressure unhairing inspector. At this point, the areas were closed on the 4th digit amputation for metatarsal head resection, closing the deepest layer with 3-0 Vicryl, then 4-0 Vicryl. The human allograft was then used for the ulcer at the lateral aspect of the foot and to put some on the left 4th metatarsal head resection. It was secured utilizing 4-0 nylon. All incisions were closed with 4-0 nylon except for the ulcer at the lateral aspect, where the graft was placed. The incision was then dressed with sterile compressive dressing consisting of 4x4s, Kerlix, and an Jack bandage. The patient tolerated the procedure and anesthesia well without complications, was transported to recovery room with vital signs stable and vascular status intact. The patient will be discharged home when he meets criteria. He was given instructions to be nonweightbearing to the lower extremity. His kidneys are failing, so he has to go and see Nephrology. He has an appointment in 2 days. He will follow up with me in W[facility] Care Center. He will call me in the office if any questions, concerns, or new problems arise. SONU Pérez/GIOVANNA /[id number]
== END | disposition home or self-care (01) ==
LOC: OR 06:44
PROVIDERS: ATTEND Podiatrist Foot & Ankle Surgery
DX: M86.171 Other acute osteomyelitis, right ankle and foot (principal); M86.671 Other chronic osteomyelitis, right ankle and foot; E11.22 Type 2 diabetes mellitus with diabetic chronic kidney disease; N18.6 End stage renal disease; Z01.810 Encounter for preprocedural cardiovascular examination; Z01.812 Encounter for preprocedural laboratory examination
CPT/HCPCS: 11044; 15275; 28112; 28820; 36415 ×2; 80048; 82948; 87071; 87075; 87186; 87205; 88305; 88311; 93005; J0131; J0690; J2001; J2250; J2405; J2704; J3010; Q4150; 88304; J1100; J2710

== ENCOUNTER → 2019-04-11 | Outpatient (CLI) | payer BC ==
[~2019-04-11] MED LIST changes: -ACETAMINOPHEN 1000 MG/100 ML IV ONE; -BACITRACIN 50,000 UNIT VIAL ONE; -BUPIVACAINE HCL 0.5% INJ 30 ML VIAL INJ ONE; -CEFAZOLIN SOD 1 GM/NS 50ML 50 ML IV ONE; -DEXAMETHASONE SOD PHOS INJ 4 MG/ML VIAL ONE; -FENTANYL CITRATE/PF 100MCG/2 ML INJ ONE; -LIDOCAINE HCL 2% LOCAL INJ 5 ML SDV VIAL INJ ONE; -MIDAZOLAM HCL 2 MG/2 ML VIAL ONE; -NEOSTIGMINE 1 MG/ML 10ML VIAL ONE; -ONDANSETRON HCL INJ 2MG/ML 2ML 2 MG/ML VIAL ONE; -PROPOFOL IV EMULSION 10 MG/ML 20 ML VIAL ONE
== END ==
LOC: WCC 12:04
PROVIDERS: ATTEND Podiatrist Foot & Ankle Surgery
DX: T81.89XA Other complications of procedures, not elsewhere classified, initial encounter (principal); M86.172 Other acute osteomyelitis, left ankle and foot; E11.621 Type 2 diabetes mellitus with foot ulcer; L97.429 Non-pressure chronic ulcer of left heel and midfoot with unspecified severity; L97.411 Non-pressure chronic ulcer of right heel and midfoot limited to breakdown of skin; L97.519 Non-pressure chronic ulcer of other part of right foot with unspecified severity; R60.0 Localized edema; N28.9 Disorder of kidney and ureter, unspecified; I10 Essential (primary) hypertension; D50.9 Iron deficiency anemia, unspecified; Z01.810 Encounter for preprocedural cardiovascular examination; Z01.811 Encounter for preprocedural respiratory examination

== ENCOUNTER → 2019-04-12 | Outpatient (CLI) | payer BC | LOC: WCC 15:22 | PROVIDERS: ATTEND Podiatrist Foot & Ankle Surgery | DX: T81.89XA Other complications of procedures, not elsewhere classified, initial encounter (principal); M86.172 Other acute osteomyelitis, left ankle and foot; E11.621 Type 2 diabetes mellitus with foot ulcer; L97.429 Non-pressure chronic ulcer of left heel and midfoot with unspecified severity; L97.411 Non-pressure chronic ulcer of right heel and midfoot limited to breakdown of skin; L97.519 Non-pressure chronic ulcer of other part of right foot with unspecified severity; R60.0 Localized edema; N28.9 Disorder of kidney and ureter, unspecified; I10 Essential (primary) hypertension; D50.9 Iron deficiency anemia, unspecified; Z01.810 Encounter for preprocedural cardiovascular examination; Z01.811 Encounter for preprocedural respiratory examination | CPT/HCPCS: 99213; G0277 ==

== ENCOUNTER → 2019-04-13 | Outpatient (CLI) | payer BC | LOC: WCC 15:40 | PROVIDERS: ATTEND Podiatrist Foot & Ankle Surgery | DX: T81.89XA Other complications of procedures, not elsewhere classified, initial encounter (principal); M86.172 Other acute osteomyelitis, left ankle and foot; E11.621 Type 2 diabetes mellitus with foot ulcer; L97.429 Non-pressure chronic ulcer of left heel and midfoot with unspecified severity; L97.411 Non-pressure chronic ulcer of right heel and midfoot limited to breakdown of skin; L97.519 Non-pressure chronic ulcer of other part of right foot with unspecified severity; R60.0 Localized edema; N28.9 Disorder of kidney and ureter, unspecified; I10 Essential (primary) hypertension; D50.9 Iron deficiency anemia, unspecified; Z01.810 Encounter for preprocedural cardiovascular examination; Z01.811 Encounter for preprocedural respiratory examination ==

== ENCOUNTER → 2019-04-16 | Outpatient (CLI) | payer BC | LOC: WCC 14:23 | PROVIDERS: ATTEND Podiatrist Foot & Ankle Surgery | DX: T81.89XA Other complications of procedures, not elsewhere classified, initial encounter (principal); M86.172 Other acute osteomyelitis, left ankle and foot; E11.621 Type 2 diabetes mellitus with foot ulcer; L97.429 Non-pressure chronic ulcer of left heel and midfoot with unspecified severity; L97.411 Non-pressure chronic ulcer of right heel and midfoot limited to breakdown of skin; L97.519 Non-pressure chronic ulcer of other part of right foot with unspecified severity; R60.0 Localized edema; N28.9 Disorder of kidney and ureter, unspecified; I10 Essential (primary) hypertension; D50.9 Iron deficiency anemia, unspecified; Z01.810 Encounter for preprocedural cardiovascular examination; Z01.811 Encounter for preprocedural respiratory examination ==

== ENCOUNTER → 2019-04-17 | Outpatient (CLI) | payer BC | LOC: WCC 11:58 | PROVIDERS: ATTEND Podiatrist Foot & Ankle Surgery | DX: T81.89XA Other complications of procedures, not elsewhere classified, initial encounter (principal); E11.621 Type 2 diabetes mellitus with foot ulcer; M86.172 Other acute osteomyelitis, left ankle and foot; L97.429 Non-pressure chronic ulcer of left heel and midfoot with unspecified severity; L97.519 Non-pressure chronic ulcer of other part of right foot with unspecified severity; L97.411 Non-pressure chronic ulcer of right heel and midfoot limited to breakdown of skin; R60.0 Localized edema; N28.9 Disorder of kidney and ureter, unspecified; I10 Essential (primary) hypertension; D50.9 Iron deficiency anemia, unspecified; Z01.810 Encounter for preprocedural cardiovascular examination; Z01.811 Encounter for preprocedural respiratory examination ==

== ENCOUNTER → 2019-04-18 | Outpatient (CLI) | payer BC | LOC: WCC 12:06 | PROVIDERS: ATTEND Podiatrist Foot & Ankle Surgery | DX: T81.89XA Other complications of procedures, not elsewhere classified, initial encounter (principal); E11.621 Type 2 diabetes mellitus with foot ulcer; M86.172 Other acute osteomyelitis, left ankle and foot; L97.429 Non-pressure chronic ulcer of left heel and midfoot with unspecified severity; L97.411 Non-pressure chronic ulcer of right heel and midfoot limited to breakdown of skin; L97.519 Non-pressure chronic ulcer of other part of right foot with unspecified severity; R60.0 Localized edema; N28.9 Disorder of kidney and ureter, unspecified; I10 Essential (primary) hypertension; D50.9 Iron deficiency anemia, unspecified; Z01.810 Encounter for preprocedural cardiovascular examination; Z01.811 Encounter for preprocedural respiratory examination ==

== ENCOUNTER → 2019-04-19 | Outpatient (CLI) | payer BC | LOC: WCC 10:44 | PROVIDERS: ATTEND Podiatrist Foot & Ankle Surgery | DX: T81.89XA Other complications of procedures, not elsewhere classified, initial encounter (principal); E11.621 Type 2 diabetes mellitus with foot ulcer; M86.172 Other acute osteomyelitis, left ankle and foot; L97.429 Non-pressure chronic ulcer of left heel and midfoot with unspecified severity; L97.411 Non-pressure chronic ulcer of right heel and midfoot limited to breakdown of skin; L97.519 Non-pressure chronic ulcer of other part of right foot with unspecified severity; R60.0 Localized edema; N28.9 Disorder of kidney and ureter, unspecified; I10 Essential (primary) hypertension; D50.9 Iron deficiency anemia, unspecified; Z01.810 Encounter for preprocedural cardiovascular examination; Z01.811 Encounter for preprocedural respiratory examination ==

== ENCOUNTER → 2019-04-20 | Outpatient (CLI) | payer BC | LOC: WCC 10:23 | PROVIDERS: ATTEND Podiatrist Foot & Ankle Surgery | DX: T81.89XA Other complications of procedures, not elsewhere classified, initial encounter (principal); E11.621 Type 2 diabetes mellitus with foot ulcer; M86.172 Other acute osteomyelitis, left ankle and foot; L97.429 Non-pressure chronic ulcer of left heel and midfoot with unspecified severity; L97.411 Non-pressure chronic ulcer of right heel and midfoot limited to breakdown of skin; L97.519 Non-pressure chronic ulcer of other part of right foot with unspecified severity; R60.0 Localized edema; N28.9 Disorder of kidney and ureter, unspecified; I10 Essential (primary) hypertension; D50.9 Iron deficiency anemia, unspecified; Z01.810 Encounter for preprocedural cardiovascular examination; Z01.811 Encounter for preprocedural respiratory examination | CPT/HCPCS: 99213; G0277 ==

== ENCOUNTER → 2019-04-23 | Outpatient (CLI) | payer BC | LOC: WCC 15:34 | PROVIDERS: ATTEND Podiatrist Foot & Ankle Surgery | DX: T81.89XA Other complications of procedures, not elsewhere classified, initial encounter (principal); M86.172 Other acute osteomyelitis, left ankle and foot; E11.621 Type 2 diabetes mellitus with foot ulcer; L97.429 Non-pressure chronic ulcer of left heel and midfoot with unspecified severity; L97.411 Non-pressure chronic ulcer of right heel and midfoot limited to breakdown of skin; L97.519 Non-pressure chronic ulcer of other part of right foot with unspecified severity; R60.0 Localized edema; N28.9 Disorder of kidney and ureter, unspecified; I10 Essential (primary) hypertension; D50.9 Iron deficiency anemia, unspecified; Z01.810 Encounter for preprocedural cardiovascular examination; Z01.811 Encounter for preprocedural respiratory examination ==

== ENCOUNTER → 2019-04-23 | Outpatient (CLI) | payer BC ==
[~2019-04-23] MED LIST changes: +MINERAL OIL/PETROLAT/GLYCERI 6OZ BTL ONE
== END ==
LOC: WCC 14:52
PROVIDERS: ATTEND Podiatrist Foot & Ankle Surgery
DX: T81.89XA Other complications of procedures, not elsewhere classified, initial encounter (principal); E11.621 Type 2 diabetes mellitus with foot ulcer; M86.172 Other acute osteomyelitis, left ankle and foot; L97.429 Non-pressure chronic ulcer of left heel and midfoot with unspecified severity; L97.411 Non-pressure chronic ulcer of right heel and midfoot limited to breakdown of skin; L97.519 Non-pressure chronic ulcer of other part of right foot with unspecified severity; R60.0 Localized edema; N28.9 Disorder of kidney and ureter, unspecified; I10 Essential (primary) hypertension; D50.9 Iron deficiency anemia, unspecified; Z01.810 Encounter for preprocedural cardiovascular examination; Z01.811 Encounter for preprocedural respiratory examination
CPT/HCPCS: 36415; 82948; 99213; G0277

== ENCOUNTER → 2019-04-25 | Outpatient (CLI) | payer BC ==
[~2019-04-25] MED LIST changes: -MINERAL OIL/PETROLAT/GLYCERI 6OZ BTL ONE
== END ==
LOC: WCC 09:34
PROVIDERS: ATTEND Podiatrist Foot & Ankle Surgery
DX: T81.89XA Other complications of procedures, not elsewhere classified, initial encounter (principal); E11.621 Type 2 diabetes mellitus with foot ulcer; M86.172 Other acute osteomyelitis, left ankle and foot; L97.411 Non-pressure chronic ulcer of right heel and midfoot limited to breakdown of skin; L97.519 Non-pressure chronic ulcer of other part of right foot with unspecified severity; R60.0 Localized edema; N28.9 Disorder of kidney and ureter, unspecified; I10 Essential (primary) hypertension; D50.9 Iron deficiency anemia, unspecified; Z01.810 Encounter for preprocedural cardiovascular examination; Z01.811 Encounter for preprocedural respiratory examination
CPT/HCPCS: 99213; G0277

== ENCOUNTER → 2019-04-26 | Outpatient (CLI) | payer BC | LOC: WCC 13:11 | PROVIDERS: ATTEND Podiatrist Foot & Ankle Surgery | DX: T81.89XA Other complications of procedures, not elsewhere classified, initial encounter (principal); E11.621 Type 2 diabetes mellitus with foot ulcer; M86.172 Other acute osteomyelitis, left ankle and foot; L97.411 Non-pressure chronic ulcer of right heel and midfoot limited to breakdown of skin; L97.519 Non-pressure chronic ulcer of other part of right foot with unspecified severity; R60.0 Localized edema; N28.9 Disorder of kidney and ureter, unspecified; I10 Essential (primary) hypertension; D50.9 Iron deficiency anemia, unspecified; Z01.810 Encounter for preprocedural cardiovascular examination; Z01.811 Encounter for preprocedural respiratory examination ==

== ENCOUNTER → 2019-04-27 | Outpatient (CLI) | payer BC | LOC: WCC 12:08 | PROVIDERS: ATTEND Podiatrist Foot & Ankle Surgery | DX: T81.89XA Other complications of procedures, not elsewhere classified, initial encounter (principal); M86.172 Other acute osteomyelitis, left ankle and foot; E11.621 Type 2 diabetes mellitus with foot ulcer; L97.411 Non-pressure chronic ulcer of right heel and midfoot limited to breakdown of skin; R60.0 Localized edema; N28.9 Disorder of kidney and ureter, unspecified; I10 Essential (primary) hypertension; D50.9 Iron deficiency anemia, unspecified; Z01.810 Encounter for preprocedural cardiovascular examination; Z01.811 Encounter for preprocedural respiratory examination ==

== ENCOUNTER → 2019-04-30 | Outpatient (CLI) | payer BC | LOC: WCC 12:52 | PROVIDERS: ATTEND Podiatrist Foot & Ankle Surgery | DX: T81.89XA Other complications of procedures, not elsewhere classified, initial encounter (principal); M86.172 Other acute osteomyelitis, left ankle and foot; E11.621 Type 2 diabetes mellitus with foot ulcer; L97.411 Non-pressure chronic ulcer of right heel and midfoot limited to breakdown of skin; R60.0 Localized edema; N28.9 Disorder of kidney and ureter, unspecified; I10 Essential (primary) hypertension; D50.9 Iron deficiency anemia, unspecified; Z01.810 Encounter for preprocedural cardiovascular examination; Z01.811 Encounter for preprocedural respiratory examination ==

== ENCOUNTER → 2019-05-01 | Outpatient (CLI) | payer BC ==
--- NOTE | 2019-05-01 11:42 | Diagnostic Imaging Report ---
TECHNIQUE: Magnetic resonance imaging of the RIGHT foot (midfoot and forefoot) was performed WITHOUT injected contrast. HISTORY: Diabetes type 2, blister, ulcer right heel and midfoot, pain, surgery January 2019 COMPARISON: MRI of the right foot February 13, 2019. DISCUSSION: Bone: * Persistent decreased fatty marrow signal, paucity of edema, and marked cortical irregularity versus fragmentation of the proximal third of the fifth metatarsal bone. * Interval subtle erosion with adjacent decreased fatty marrow signal and possibility the of edema at the plantar base of the fourth metatarsal bone. * Interval subtle erosion with adjacent decreased fatty marrow signal and paucity the of edema at the lateral base of the third metatarsal bone and adjacent lateral cuneiform. * Mild nonspecific bone marrow edema and subtle patchy bone marrow edema about the first and second tarsometatarsal joints, cuboid, and distal third through fifth metatarsal bones. * Interval amputation of the fourth toe at the level of the base of the fourth proximal phalanx. Mild nonspecific bone marrow edema within the residual base of the fourth proximal phalanx. Joints: Mild scattered arthropathy. Fluid within the visualized joints is within physiologic limits. Soft Tissues: Moderate nonspecific edema. No drainable abscess. IMPRESSION: 1. Findings are most compatible with mildly progressive chronic osteomyelitis involving the proximal third of the fifth metatarsal bone, base of the fourth metatarsal bone, base of the third metatarsal bone and adjacent lateral cuneiform. 2. Status post amputation of the fourth toe at the level of the base of the fourth proximal phalanx. 3. No soft tissue abscess. Signed by: Dr. Burt Luke D.O., M.M.M. on 05/01/2019 11:39 AM
== END ==
LOC: MRI 04-30 09:46
PROVIDERS: ATTEND Plastic Surgery
DX: E11.621 Type 2 diabetes mellitus with foot ulcer (principal); L97.411 Non-pressure chronic ulcer of right heel and midfoot limited to breakdown of skin

== ENCOUNTER → 2019-05-01 | Outpatient (CLI) | payer BC ==
[~2019-05-01] MED LIST changes: +AMMONIUM LACTATE 12% LOTION 225GM BTL ONE; +MINERAL OIL/PETROLAT/GLYCERI 2OZ CRM ONE; +MINERAL OIL/PETROLAT/GLYCERI 6OZ BTL ONE
== END ==
LOC: WCC 13:56
PROVIDERS: ATTEND Podiatrist Foot & Ankle Surgery
DX: E11.621 Type 2 diabetes mellitus with foot ulcer (principal); M86.172 Other acute osteomyelitis, left ankle and foot; L97.411 Non-pressure chronic ulcer of right heel and midfoot limited to breakdown of skin; R60.0 Localized edema; N28.9 Disorder of kidney and ureter, unspecified; I10 Essential (primary) hypertension; D50.9 Iron deficiency anemia, unspecified; Z01.810 Encounter for preprocedural cardiovascular examination; Z01.811 Encounter for preprocedural respiratory examination
CPT/HCPCS: 36415; 82948

== ENCOUNTER → 2019-05-02 | Outpatient (CLI) | payer BC ==
[~2019-05-02] MED LIST changes: -AMMONIUM LACTATE 12% LOTION 225GM BTL ONE; -MINERAL OIL/PETROLAT/GLYCERI 2OZ CRM ONE; -MINERAL OIL/PETROLAT/GLYCERI 6OZ BTL ONE
== END ==
LOC: WCC 13:25
PROVIDERS: ATTEND Podiatrist Foot & Ankle Surgery
DX: E11.621 Type 2 diabetes mellitus with foot ulcer (principal); M86.172 Other acute osteomyelitis, left ankle and foot; L97.411 Non-pressure chronic ulcer of right heel and midfoot limited to breakdown of skin; R60.0 Localized edema; I10 Essential (primary) hypertension; D50.9 Iron deficiency anemia, unspecified; N28.9 Disorder of kidney and ureter, unspecified; Z01.810 Encounter for preprocedural cardiovascular examination; Z01.811 Encounter for preprocedural respiratory examination

== ENCOUNTER → 2019-05-03 | Outpatient (CLI) | payer BC | LOC: WCC 13:14 | PROVIDERS: ATTEND Podiatrist Foot & Ankle Surgery | DX: E11.621 Type 2 diabetes mellitus with foot ulcer (principal); M86.172 Other acute osteomyelitis, left ankle and foot; L97.411 Non-pressure chronic ulcer of right heel and midfoot limited to breakdown of skin; R60.0 Localized edema; N28.9 Disorder of kidney and ureter, unspecified; I10 Essential (primary) hypertension; D50.9 Iron deficiency anemia, unspecified; Z01.810 Encounter for preprocedural cardiovascular examination; Z01.811 Encounter for preprocedural respiratory examination ==

== ENCOUNTER → 2019-05-04 | Outpatient (CLI) | payer BC ==
[2019-05-07 14:05] LABS: BASOPHILS % 0.3 % (0.0-1.0); EOSINOPHILS # (AUTO) 0.1 (0.0-0.4); EOSINOPHILS % 1.3 % (0.0-6.0); HEMATOCRIT 26.7 % (38.2-49.6); HEMOGLOBIN 9.2 g/dL (14.0-18.0); LYMPHOCYTES # (AUTO) 1.6 (1.0-3.2); LYMPHOCYTES % 25.9 % (18.0-39.1); MEAN CORPUSCULAR HEMOGLOBIN 29.9 pg (28-32); MEAN CORPUSCULAR HGB CONC 34.5 g/dL (31-35); MEAN CORPUSCULAR VOLUME 86.7 fL (81-99); MONOCYTES # (AUTO) 0.6 (0.2-0.8); MONOCYTES % 9.9 % (4.4-11.3); NEUTROPHILS # (AUTO) 3.9 (2.1-6.9); PLATELET COUNT 254 x10e3/uL (140-360); RED BLOOD COUNT 3.08 x10e6/uL (4.3-5.7); RED CELL DISTRIBUTION WIDTH 13.6 % (11.7-14.4)
[2019-05-07 14:27] LABS: ALBUMIN 2.4 g/dL (3.5-5.0); ALBUMIN/GLOBULIN RATIO 0.7 (0.8-2.0); CALCIUM 8.6 mg/dL (8.4-10.2); CREATININE, SERUM 4.76 mg/dL (0.72-1.25)
== END ==
LOC: WCC 01:00
PROVIDERS: ATTEND Podiatrist Foot & Ankle Surgery
DX: E11.621 Type 2 diabetes mellitus with foot ulcer (principal); M86.172 Other acute osteomyelitis, left ankle and foot; L97.411 Non-pressure chronic ulcer of right heel and midfoot limited to breakdown of skin; R60.0 Localized edema; N28.9 Disorder of kidney and ureter, unspecified; I10 Essential (primary) hypertension; D50.9 Iron deficiency anemia, unspecified; Z01.810 Encounter for preprocedural cardiovascular examination; Z01.811 Encounter for preprocedural respiratory examination
CPT/HCPCS: 36415; 80053; 83036; 84134; 85025; 85651; 86140

== ENCOUNTER → 2019-05-07 | Outpatient (CLI) | payer BC | LOC: WCC 14:37 | PROVIDERS: ATTEND Podiatrist Foot & Ankle Surgery | DX: E11.621 Type 2 diabetes mellitus with foot ulcer (principal); M86.172 Other acute osteomyelitis, left ankle and foot; L97.411 Non-pressure chronic ulcer of right heel and midfoot limited to breakdown of skin; R60.0 Localized edema; N28.9 Disorder of kidney and ureter, unspecified; I10 Essential (primary) hypertension; D50.9 Iron deficiency anemia, unspecified; Z01.810 Encounter for preprocedural cardiovascular examination; Z01.811 Encounter for preprocedural respiratory examination ==

== ENCOUNTER → 2019-05-08 | Outpatient (CLI) | payer BC | LOC: WCC 15:33 | PROVIDERS: ATTEND Podiatrist Foot & Ankle Surgery | DX: E11.621 Type 2 diabetes mellitus with foot ulcer (principal); M86.172 Other acute osteomyelitis, left ankle and foot; L97.411 Non-pressure chronic ulcer of right heel and midfoot limited to breakdown of skin; R60.0 Localized edema; N28.9 Disorder of kidney and ureter, unspecified; I10 Essential (primary) hypertension; D50.9 Iron deficiency anemia, unspecified; Z01.810 Encounter for preprocedural cardiovascular examination; Z01.811 Encounter for preprocedural respiratory examination ==

== ENCOUNTER → 2019-05-09 | Outpatient (CLI) | payer BC | LOC: WCC 14:45 | PROVIDERS: ATTEND Podiatrist Foot & Ankle Surgery | DX: E11.621 Type 2 diabetes mellitus with foot ulcer (principal); M86.172 Other acute osteomyelitis, left ankle and foot; L97.411 Non-pressure chronic ulcer of right heel and midfoot limited to breakdown of skin; R60.0 Localized edema; N28.9 Disorder of kidney and ureter, unspecified; I10 Essential (primary) hypertension; D50.9 Iron deficiency anemia, unspecified; Z01.810 Encounter for preprocedural cardiovascular examination; Z01.811 Encounter for preprocedural respiratory examination ==

== ENCOUNTER → 2019-05-10 | Outpatient (CLI) | payer BC | LOC: WCC 14:07 | PROVIDERS: ATTEND Podiatrist Foot & Ankle Surgery | DX: E11.621 Type 2 diabetes mellitus with foot ulcer (principal); M86.172 Other acute osteomyelitis, left ankle and foot; L97.411 Non-pressure chronic ulcer of right heel and midfoot limited to breakdown of skin; R60.0 Localized edema; N28.9 Disorder of kidney and ureter, unspecified; I10 Essential (primary) hypertension; D50.9 Iron deficiency anemia, unspecified | CPT/HCPCS: 99213; G0277 ==

== ENCOUNTER → 2019-05-11 | Outpatient (CLI) | payer BC | LOC: WCC 01:30 | PROVIDERS: ATTEND Podiatrist Foot & Ankle Surgery | DX: E11.621 Type 2 diabetes mellitus with foot ulcer (principal); M86.172 Other acute osteomyelitis, left ankle and foot; L97.411 Non-pressure chronic ulcer of right heel and midfoot limited to breakdown of skin; R60.0 Localized edema; N28.9 Disorder of kidney and ureter, unspecified; I10 Essential (primary) hypertension; D50.9 Iron deficiency anemia, unspecified; Z01.810 Encounter for preprocedural cardiovascular examination; Z01.811 Encounter for preprocedural respiratory examination ==

== ENCOUNTER → 2019-05-14 | Outpatient (CLI) | payer BC | LOC: WCC 15:37 | PROVIDERS: ATTEND Podiatrist Foot & Ankle Surgery | DX: E11.621 Type 2 diabetes mellitus with foot ulcer (principal); M86.172 Other acute osteomyelitis, left ankle and foot; L97.411 Non-pressure chronic ulcer of right heel and midfoot limited to breakdown of skin; R60.0 Localized edema; N28.9 Disorder of kidney and ureter, unspecified; I10 Essential (primary) hypertension; D50.9 Iron deficiency anemia, unspecified; Z01.810 Encounter for preprocedural cardiovascular examination; Z01.811 Encounter for preprocedural respiratory examination | CPT/HCPCS: 99212; 99213; G0277 ==

== ENCOUNTER → 2019-05-15 | Outpatient (CLI) | payer BC | LOC: WCC 11:47 | PROVIDERS: ATTEND Podiatrist Foot & Ankle Surgery | DX: E11.621 Type 2 diabetes mellitus with foot ulcer (principal); M86.172 Other acute osteomyelitis, left ankle and foot; L97.411 Non-pressure chronic ulcer of right heel and midfoot limited to breakdown of skin; R60.0 Localized edema; N28.9 Disorder of kidney and ureter, unspecified; I10 Essential (primary) hypertension; D50.9 Iron deficiency anemia, unspecified; Z01.810 Encounter for preprocedural cardiovascular examination; Z01.811 Encounter for preprocedural respiratory examination ==

== ENCOUNTER → 2019-05-16 | Outpatient (CLI) | payer BC | LOC: WCC 13:40 | PROVIDERS: ATTEND Podiatrist Foot & Ankle Surgery | DX: E11.621 Type 2 diabetes mellitus with foot ulcer (principal); M86.172 Other acute osteomyelitis, left ankle and foot; L97.411 Non-pressure chronic ulcer of right heel and midfoot limited to breakdown of skin; R60.0 Localized edema; N28.9 Disorder of kidney and ureter, unspecified; I10 Essential (primary) hypertension; D50.9 Iron deficiency anemia, unspecified; Z01.810 Encounter for preprocedural cardiovascular examination; Z01.811 Encounter for preprocedural respiratory examination ==

== ENCOUNTER → 2019-05-17 | Outpatient (CLI) | payer BC | LOC: WCC 12:34 | PROVIDERS: ATTEND Podiatrist Foot & Ankle Surgery | DX: E11.621 Type 2 diabetes mellitus with foot ulcer (principal); M86.172 Other acute osteomyelitis, left ankle and foot; L97.411 Non-pressure chronic ulcer of right heel and midfoot limited to breakdown of skin; R60.0 Localized edema; N28.9 Disorder of kidney and ureter, unspecified; I10 Essential (primary) hypertension; D50.9 Iron deficiency anemia, unspecified; Z01.810 Encounter for preprocedural cardiovascular examination; Z01.811 Encounter for preprocedural respiratory examination ==

== ENCOUNTER → 2019-05-23 | Outpatient (CLI) | payer BC | LOC: WCC 13:50 | PROVIDERS: ATTEND Podiatrist Foot & Ankle Surgery | DX: E11.621 Type 2 diabetes mellitus with foot ulcer (principal) ==

== ENCOUNTER → 2019-05-24 | Outpatient (CLI) | payer BC | LOC: WCC 10:07 | PROVIDERS: ATTEND Podiatrist Foot & Ankle Surgery | DX: E11.621 Type 2 diabetes mellitus with foot ulcer (principal); M86.172 Other acute osteomyelitis, left ankle and foot; L97.411 Non-pressure chronic ulcer of right heel and midfoot limited to breakdown of skin; R60.0 Localized edema; N28.9 Disorder of kidney and ureter, unspecified; I10 Essential (primary) hypertension; D50.9 Iron deficiency anemia, unspecified; Z01.810 Encounter for preprocedural cardiovascular examination; Z01.811 Encounter for preprocedural respiratory examination | CPT/HCPCS: 99212; G0277 ==

== ENCOUNTER → 2019-05-25 | Outpatient (CLI) | payer BC | LOC: WCC 15:26 | PROVIDERS: ATTEND Podiatrist Foot & Ankle Surgery | DX: E11.621 Type 2 diabetes mellitus with foot ulcer (principal); M86.172 Other acute osteomyelitis, left ankle and foot; L97.411 Non-pressure chronic ulcer of right heel and midfoot limited to breakdown of skin; N28.9 Disorder of kidney and ureter, unspecified; I10 Essential (primary) hypertension; D50.9 Iron deficiency anemia, unspecified; Z01.810 Encounter for preprocedural cardiovascular examination; Z01.811 Encounter for preprocedural respiratory examination ==

== ENCOUNTER → 2019-05-28 | Outpatient (CLI) | payer BC | LOC: WCC 11:12 | PROVIDERS: ATTEND Podiatrist Foot & Ankle Surgery | DX: E11.621 Type 2 diabetes mellitus with foot ulcer (principal); M86.172 Other acute osteomyelitis, left ankle and foot; L97.411 Non-pressure chronic ulcer of right heel and midfoot limited to breakdown of skin; R60.0 Localized edema; N28.9 Disorder of kidney and ureter, unspecified; I10 Essential (primary) hypertension; D50.9 Iron deficiency anemia, unspecified; Z01.810 Encounter for preprocedural cardiovascular examination; Z01.811 Encounter for preprocedural respiratory examination | CPT/HCPCS: 99212; G0277 ==

== ENCOUNTER → 2019-05-31 | Outpatient (CLI) | payer BC | LOC: WCC 11:57 | PROVIDERS: ATTEND Family Medicine Adult Medicine | DX: E11.621 Type 2 diabetes mellitus with foot ulcer (principal); M86.172 Other acute osteomyelitis, left ankle and foot; L97.411 Non-pressure chronic ulcer of right heel and midfoot limited to breakdown of skin; R60.0 Localized edema; N28.9 Disorder of kidney and ureter, unspecified; I10 Essential (primary) hypertension; D50.9 Iron deficiency anemia, unspecified; Z01.810 Encounter for preprocedural cardiovascular examination; Z01.811 Encounter for preprocedural respiratory examination ==

== ENCOUNTER → 2019-06-04 | Outpatient (CLI) | payer BC | LOC: WCC 14:38 | PROVIDERS: ATTEND Podiatrist Foot & Ankle Surgery | DX: E11.621 Type 2 diabetes mellitus with foot ulcer (principal); M86.172 Other acute osteomyelitis, left ankle and foot; L97.411 Non-pressure chronic ulcer of right heel and midfoot limited to breakdown of skin; R60.0 Localized edema; N28.9 Disorder of kidney and ureter, unspecified; I10 Essential (primary) hypertension; D50.9 Iron deficiency anemia, unspecified; Z01.810 Encounter for preprocedural cardiovascular examination; Z01.811 Encounter for preprocedural respiratory examination | CPT/HCPCS: 15275; 36415; 82948; 99213; Q4186 ==

== ENCOUNTER → 2019-06-05 | Outpatient (CLI) | payer BC | LOC: WCC 13:07 | PROVIDERS: ATTEND Podiatrist Foot & Ankle Surgery | DX: E11.621 Type 2 diabetes mellitus with foot ulcer (principal); M86.172 Other acute osteomyelitis, left ankle and foot; L97.411 Non-pressure chronic ulcer of right heel and midfoot limited to breakdown of skin; R60.0 Localized edema; N28.9 Disorder of kidney and ureter, unspecified; I10 Essential (primary) hypertension; D50.9 Iron deficiency anemia, unspecified; Z01.810 Encounter for preprocedural cardiovascular examination; Z01.811 Encounter for preprocedural respiratory examination ==

== ENCOUNTER → 2019-06-11 | Outpatient (CLI) | payer BC | LOC: WCC 13:38 | PROVIDERS: ATTEND Podiatrist Foot & Ankle Surgery | DX: E11.621 Type 2 diabetes mellitus with foot ulcer (principal); M86.172 Other acute osteomyelitis, left ankle and foot; L97.411 Non-pressure chronic ulcer of right heel and midfoot limited to breakdown of skin; R60.0 Localized edema; N28.9 Disorder of kidney and ureter, unspecified; I10 Essential (primary) hypertension; D50.9 Iron deficiency anemia, unspecified; Z01.810 Encounter for preprocedural cardiovascular examination; Z01.811 Encounter for preprocedural respiratory examination ==

== ENCOUNTER → 2019-06-18 | Outpatient (CLI) | payer BC | LOC: WCC 15:22 | PROVIDERS: ATTEND Podiatrist Foot & Ankle Surgery | DX: E11.621 Type 2 diabetes mellitus with foot ulcer (principal); M86.172 Other acute osteomyelitis, left ankle and foot; L97.411 Non-pressure chronic ulcer of right heel and midfoot limited to breakdown of skin; L97.519 Non-pressure chronic ulcer of other part of right foot with unspecified severity; R60.0 Localized edema; N28.9 Disorder of kidney and ureter, unspecified; I10 Essential (primary) hypertension; D50.9 Iron deficiency anemia, unspecified; Z01.810 Encounter for preprocedural cardiovascular examination; Z01.811 Encounter for preprocedural respiratory examination ==

== ENCOUNTER → 2019-06-20 | Outpatient (CLI) | payer BC | LOC: WCC 14:14 | PROVIDERS: ATTEND Podiatrist Foot & Ankle Surgery | DX: E11.621 Type 2 diabetes mellitus with foot ulcer (principal); M86.172 Other acute osteomyelitis, left ankle and foot; L97.411 Non-pressure chronic ulcer of right heel and midfoot limited to breakdown of skin; L97.519 Non-pressure chronic ulcer of other part of right foot with unspecified severity; R60.0 Localized edema; N28.9 Disorder of kidney and ureter, unspecified; I10 Essential (primary) hypertension; D50.9 Iron deficiency anemia, unspecified; Z01.810 Encounter for preprocedural cardiovascular examination; Z01.811 Encounter for preprocedural respiratory examination ==

== ENCOUNTER → 2019-06-22 | Outpatient (CLI) | payer BC | LOC: WCC 14:44 | PROVIDERS: ATTEND Podiatrist Foot & Ankle Surgery | DX: E11.621 Type 2 diabetes mellitus with foot ulcer (principal); M86.172 Other acute osteomyelitis, left ankle and foot; L97.411 Non-pressure chronic ulcer of right heel and midfoot limited to breakdown of skin; L97.519 Non-pressure chronic ulcer of other part of right foot with unspecified severity; R60.0 Localized edema; N28.9 Disorder of kidney and ureter, unspecified; I10 Essential (primary) hypertension; D50.9 Iron deficiency anemia, unspecified; Z01.810 Encounter for preprocedural cardiovascular examination; Z01.811 Encounter for preprocedural respiratory examination ==

== ENCOUNTER → 2019-06-25 | Outpatient (CLI) | payer BC | LOC: WCC 14:30 | PROVIDERS: ATTEND Podiatrist Foot & Ankle Surgery | DX: E11.621 Type 2 diabetes mellitus with foot ulcer (principal); M86.172 Other acute osteomyelitis, left ankle and foot; L97.411 Non-pressure chronic ulcer of right heel and midfoot limited to breakdown of skin; L97.519 Non-pressure chronic ulcer of other part of right foot with unspecified severity; R60.0 Localized edema; N28.9 Disorder of kidney and ureter, unspecified; I10 Essential (primary) hypertension; D50.9 Iron deficiency anemia, unspecified; Z01.810 Encounter for preprocedural cardiovascular examination; Z01.811 Encounter for preprocedural respiratory examination ==

== ENCOUNTER → 2019-06-27 | Outpatient (CLI) | payer BC | LOC: WCC 14:47 | PROVIDERS: ATTEND Podiatrist Foot & Ankle Surgery | DX: E11.621 Type 2 diabetes mellitus with foot ulcer (principal); M86.172 Other acute osteomyelitis, left ankle and foot; L97.519 Non-pressure chronic ulcer of other part of right foot with unspecified severity; L97.411 Non-pressure chronic ulcer of right heel and midfoot limited to breakdown of skin; R60.0 Localized edema; N28.9 Disorder of kidney and ureter, unspecified; I10 Essential (primary) hypertension; D50.9 Iron deficiency anemia, unspecified; Z01.810 Encounter for preprocedural cardiovascular examination; Z01.811 Encounter for preprocedural respiratory examination ==

== ENCOUNTER → 2019-07-02 | Outpatient (CLI) | payer BC | LOC: WCC 16:19 | PROVIDERS: ATTEND Podiatrist Foot & Ankle Surgery | DX: E11.621 Type 2 diabetes mellitus with foot ulcer (principal); M86.172 Other acute osteomyelitis, left ankle and foot; L97.416 Non-pressure chronic ulcer of right heel and midfoot with bone involvement without evidence of necrosis; L97.519 Non-pressure chronic ulcer of other part of right foot with unspecified severity; R60.0 Localized edema; N28.9 Disorder of kidney and ureter, unspecified; I10 Essential (primary) hypertension; D50.9 Iron deficiency anemia, unspecified; Z01.810 Encounter for preprocedural cardiovascular examination; Z01.811 Encounter for preprocedural respiratory examination | CPT/HCPCS: 15275; 36415; 82948; Q4186 ==

== ENCOUNTER → 2019-07-09 | Outpatient (CLI) | payer BC | LOC: WCC 14:57 | PROVIDERS: ATTEND Podiatrist Foot & Ankle Surgery | DX: E11.621 Type 2 diabetes mellitus with foot ulcer (principal); M86.172 Other acute osteomyelitis, left ankle and foot; L97.416 Non-pressure chronic ulcer of right heel and midfoot with bone involvement without evidence of necrosis; L97.529 Non-pressure chronic ulcer of other part of left foot with unspecified severity; L97.519 Non-pressure chronic ulcer of other part of right foot with unspecified severity; R60.0 Localized edema; N28.9 Disorder of kidney and ureter, unspecified; I10 Essential (primary) hypertension; D50.9 Iron deficiency anemia, unspecified; Z01.810 Encounter for preprocedural cardiovascular examination; Z01.811 Encounter for preprocedural respiratory examination | CPT/HCPCS: 15275; Q4101 ==

== ENCOUNTER → 2019-07-16 | Outpatient (CLI) | payer BC | LOC: WCC 01:00 | PROVIDERS: ATTEND Podiatrist Foot & Ankle Surgery | DX: E11.621 Type 2 diabetes mellitus with foot ulcer (principal); L97.416 Non-pressure chronic ulcer of right heel and midfoot with bone involvement without evidence of necrosis; L97.519 Non-pressure chronic ulcer of other part of right foot with unspecified severity; L97.529 Non-pressure chronic ulcer of other part of left foot with unspecified severity; R60.0 Localized edema; D50.9 Iron deficiency anemia, unspecified; I10 Essential (primary) hypertension; M86.172 Other acute osteomyelitis, left ankle and foot; N28.9 Disorder of kidney and ureter, unspecified; Z01.810 Encounter for preprocedural cardiovascular examination; Z01.811 Encounter for preprocedural respiratory examination ==

== ENCOUNTER → 2019-07-23 | Outpatient (CLI) | payer BC | LOC: WCC 01:00 | PROVIDERS: ATTEND Podiatrist Foot & Ankle Surgery | DX: E11.621 Type 2 diabetes mellitus with foot ulcer (principal); L97.416 Non-pressure chronic ulcer of right heel and midfoot with bone involvement without evidence of necrosis; L97.519 Non-pressure chronic ulcer of other part of right foot with unspecified severity; L97.529 Non-pressure chronic ulcer of other part of left foot with unspecified severity; R60.0 Localized edema; D50.9 Iron deficiency anemia, unspecified; I10 Essential (primary) hypertension; M86.172 Other acute osteomyelitis, left ankle and foot; N28.9 Disorder of kidney and ureter, unspecified; Z01.810 Encounter for preprocedural cardiovascular examination; Z01.811 Encounter for preprocedural respiratory examination ==

== ENCOUNTER → 2019-08-15 | Outpatient (CLI) | payer BC | LOC: WCC 15:40 | PROVIDERS: ATTEND Podiatrist Foot & Ankle Surgery | DX: E11.621 Type 2 diabetes mellitus with foot ulcer (principal); M86.172 Other acute osteomyelitis, left ankle and foot; L97.529 Non-pressure chronic ulcer of other part of left foot with unspecified severity; L97.416 Non-pressure chronic ulcer of right heel and midfoot with bone involvement without evidence of necrosis; L97.519 Non-pressure chronic ulcer of other part of right foot with unspecified severity; R60.0 Localized edema; I10 Essential (primary) hypertension; N28.9 Disorder of kidney and ureter, unspecified; D50.9 Iron deficiency anemia, unspecified; Z01.810 Encounter for preprocedural cardiovascular examination; Z01.811 Encounter for preprocedural respiratory examination ==

== ENCOUNTER → 2019-09-03 | Outpatient (CLI) | payer BC ==
[~2019-09-03] MED LIST changes: +MINERAL OIL/PETROLAT/GLYCERI 6OZ BTL ONE
== END ==
LOC: WCC 11:00
PROVIDERS: ATTEND Podiatrist Foot & Ankle Surgery
DX: E11.621 Type 2 diabetes mellitus with foot ulcer (principal); M86.172 Other acute osteomyelitis, left ankle and foot; L97.416 Non-pressure chronic ulcer of right heel and midfoot with bone involvement without evidence of necrosis; L97.529 Non-pressure chronic ulcer of other part of left foot with unspecified severity; L97.519 Non-pressure chronic ulcer of other part of right foot with unspecified severity; R60.0 Localized edema; N28.9 Disorder of kidney and ureter, unspecified; I10 Essential (primary) hypertension; D50.9 Iron deficiency anemia, unspecified; Z01.810 Encounter for preprocedural cardiovascular examination; Z01.811 Encounter for preprocedural respiratory examination
CPT/HCPCS: 36415; 82948

== ENCOUNTER → 2019-09-10 | Outpatient (CLI) | payer BC ==
[~2019-09-10] MED LIST changes: -MINERAL OIL/PETROLAT/GLYCERI 6OZ BTL ONE
== END ==
LOC: WCC 15:34
PROVIDERS: ATTEND Podiatrist Foot & Ankle Surgery
DX: E11.621 Type 2 diabetes mellitus with foot ulcer (principal); M86.172 Other acute osteomyelitis, left ankle and foot; L97.416 Non-pressure chronic ulcer of right heel and midfoot with bone involvement without evidence of necrosis; L97.529 Non-pressure chronic ulcer of other part of left foot with unspecified severity; L97.519 Non-pressure chronic ulcer of other part of right foot with unspecified severity; Z89.411 Acquired absence of right great toe; Z89.431 Acquired absence of right foot; R60.0 Localized edema; N28.9 Disorder of kidney and ureter, unspecified; I10 Essential (primary) hypertension; D50.9 Iron deficiency anemia, unspecified; Z01.810 Encounter for preprocedural cardiovascular examination; Z01.811 Encounter for preprocedural respiratory examination

== ENCOUNTER → 2019-09-17 | Outpatient (CLI) | payer BC | LOC: WCC 13:16 | PROVIDERS: ATTEND Podiatrist Foot & Ankle Surgery | DX: E11.621 Type 2 diabetes mellitus with foot ulcer (principal); M86.172 Other acute osteomyelitis, left ankle and foot; L97.529 Non-pressure chronic ulcer of other part of left foot with unspecified severity; R60.0 Localized edema; Z89.411 Acquired absence of right great toe; Z89.431 Acquired absence of right foot; N28.9 Disorder of kidney and ureter, unspecified; I10 Essential (primary) hypertension; D50.9 Iron deficiency anemia, unspecified; Z01.810 Encounter for preprocedural cardiovascular examination; Z01.811 Encounter for preprocedural respiratory examination ==

== ENCOUNTER → 2019-09-20 | Outpatient (CLI) | payer BC ==
[~2019-09-20] MED LIST changes: +ASPIR 8181 MG PO; +ATORVASTATIN CA20 MG PO; +CARVEDILOL12.5 MG PO; +LASIX80 MG PO; +LOSARTAN POTASS50 MG PO; +METOLAZONE5 MG PO; +NEPHRO-VITE TABL1 EA PO; +VELPHORO500 MG PO; +VITAMIN D PO
== END ==
LOC: WCC 16:08
PROVIDERS: ATTEND Podiatrist Foot & Ankle Surgery
DX: E11.621 Type 2 diabetes mellitus with foot ulcer (principal); M86.172 Other acute osteomyelitis, left ankle and foot; L97.529 Non-pressure chronic ulcer of other part of left foot with unspecified severity; Z89.431 Acquired absence of right foot; Z89.411 Acquired absence of right great toe; R60.0 Localized edema; N28.9 Disorder of kidney and ureter, unspecified; I10 Essential (primary) hypertension; D50.9 Iron deficiency anemia, unspecified; Z01.810 Encounter for preprocedural cardiovascular examination; Z01.811 Encounter for preprocedural respiratory examination

== ENCOUNTER → 2019-09-24 | Outpatient (CLI) | payer BC ==
[~2019-09-24] MED LIST changes: -ASPIR 8181 MG PO; -ATORVASTATIN CA20 MG PO; -CARVEDILOL12.5 MG PO; -LASIX80 MG PO; -LOSARTAN POTASS50 MG PO; -METOLAZONE5 MG PO; -NEPHRO-VITE TABL1 EA PO; -VELPHORO500 MG PO; -VITAMIN D PO
== END ==
LOC: WCC 13:48
PROVIDERS: ATTEND Podiatrist Foot & Ankle Surgery
DX: E11.621 Type 2 diabetes mellitus with foot ulcer (principal); M86.172 Other acute osteomyelitis, left ankle and foot; L97.529 Non-pressure chronic ulcer of other part of left foot with unspecified severity; R60.0 Localized edema; Z89.411 Acquired absence of right great toe; Z89.431 Acquired absence of right foot; N28.9 Disorder of kidney and ureter, unspecified; I10 Essential (primary) hypertension; D50.9 Iron deficiency anemia, unspecified; Z01.810 Encounter for preprocedural cardiovascular examination; Z01.811 Encounter for preprocedural respiratory examination

== ENCOUNTER → 2019-09-28 | Outpatient (CLI) | payer BC | LOC: WCC 12:43 | PROVIDERS: ATTEND Podiatrist Foot & Ankle Surgery | DX: E11.621 Type 2 diabetes mellitus with foot ulcer (principal); M86.172 Other acute osteomyelitis, left ankle and foot; Z89.431 Acquired absence of right foot; Z89.411 Acquired absence of right great toe; R60.0 Localized edema; N28.9 Disorder of kidney and ureter, unspecified; I10 Essential (primary) hypertension; D50.9 Iron deficiency anemia, unspecified; Z01.810 Encounter for preprocedural cardiovascular examination; Z01.811 Encounter for preprocedural respiratory examination ==

== ENCOUNTER → 2019-10-01 | Outpatient (CLI) | payer BC ==
[~2019-10-01] MED LIST changes: +MINERAL OIL/PETROLAT/GLYCERI 6OZ BTL ONE
== END ==
LOC: WCC 14:34
PROVIDERS: ATTEND Podiatrist Foot & Ankle Surgery
DX: E11.621 Type 2 diabetes mellitus with foot ulcer (principal); M86.172 Other acute osteomyelitis, left ankle and foot; R60.0 Localized edema; Z89.411 Acquired absence of right great toe; Z89.431 Acquired absence of right foot; N28.9 Disorder of kidney and ureter, unspecified; I10 Essential (primary) hypertension; D50.9 Iron deficiency anemia, unspecified; Z01.10 Encounter for examination of ears and hearing without abnormal findings; Z01.811 Encounter for preprocedural respiratory examination

== ENCOUNTER → 2019-10-08 | Outpatient (CLI) | payer BC ==
[~2019-10-08] MED LIST changes: -MINERAL OIL/PETROLAT/GLYCERI 6OZ BTL ONE
== END ==
LOC: WCC 13:46
PROVIDERS: ATTEND Podiatrist Foot & Ankle Surgery
DX: E11.621 Type 2 diabetes mellitus with foot ulcer (principal); R60.0 Localized edema; Z89.411 Acquired absence of right great toe; Z89.431 Acquired absence of right foot; D50.9 Iron deficiency anemia, unspecified; I10 Essential (primary) hypertension; M86.172 Other acute osteomyelitis, left ankle and foot; N28.9 Disorder of kidney and ureter, unspecified; Z01.810 Encounter for preprocedural cardiovascular examination; Z01.811 Encounter for preprocedural respiratory examination

== ENCOUNTER → 2019-10-11 | Outpatient (CLI) | payer BC | LOC: WCC 11:55 | PROVIDERS: ATTEND Podiatrist Foot & Ankle Surgery | DX: E11.621 Type 2 diabetes mellitus with foot ulcer (principal); M86.172 Other acute osteomyelitis, left ankle and foot; Z89.431 Acquired absence of right foot; Z89.411 Acquired absence of right great toe; R60.0 Localized edema; N28.9 Disorder of kidney and ureter, unspecified; I10 Essential (primary) hypertension; D50.9 Iron deficiency anemia, unspecified ==

== ENCOUNTER → 2019-10-15 | Outpatient (CLI) | payer BC ==
[~2019-10-15] MED LIST changes: +ASPIR 8181 MG PO; +ATORVASTATIN CA20 MG PO; +CARVEDILOL12.5 MG PO; +LASIX80 MG PO; +LOSARTAN POTASS50 MG PO; +METOLAZONE5 MG PO; +NEPHRO-VITE TABL1 EA PO; +VELPHORO500 MG PO; +VITAMIN D PO
== END ==
LOC: WCC 13:49
PROVIDERS: ATTEND Podiatrist Foot & Ankle Surgery
DX: E11.621 Type 2 diabetes mellitus with foot ulcer (principal); M86.172 Other acute osteomyelitis, left ankle and foot; Z89.431 Acquired absence of right foot; Z89.411 Acquired absence of right great toe; R60.0 Localized edema; N28.9 Disorder of kidney and ureter, unspecified; I10 Essential (primary) hypertension; D50.9 Iron deficiency anemia, unspecified; Z01.810 Encounter for preprocedural cardiovascular examination; Z01.811 Encounter for preprocedural respiratory examination

== ENCOUNTER → 2019-10-18 | Outpatient (CLI) | payer BC ==
[~2019-10-18] MED LIST changes: -ASPIR 8181 MG PO; -ATORVASTATIN CA20 MG PO; -CARVEDILOL12.5 MG PO; -LASIX80 MG PO; -LOSARTAN POTASS50 MG PO; -METOLAZONE5 MG PO; -NEPHRO-VITE TABL1 EA PO; -VELPHORO500 MG PO; -VITAMIN D PO
== END ==
LOC: WCC 11:02
PROVIDERS: ATTEND Podiatrist Foot & Ankle Surgery
DX: E11.621 Type 2 diabetes mellitus with foot ulcer (principal); M86.172 Other acute osteomyelitis, left ankle and foot; N28.9 Disorder of kidney and ureter, unspecified; I10 Essential (primary) hypertension; Z89.431 Acquired absence of right foot; Z89.411 Acquired absence of right great toe; R60.0 Localized edema; D50.9 Iron deficiency anemia, unspecified; Z01.810 Encounter for preprocedural cardiovascular examination; Z01.811 Encounter for preprocedural respiratory examination

== ENCOUNTER → 2019-10-25 | Outpatient (CLI) | payer BC | LOC: WCC 11:32 | PROVIDERS: ATTEND Podiatrist Foot & Ankle Surgery | DX: E11.621 Type 2 diabetes mellitus with foot ulcer (principal); M86.172 Other acute osteomyelitis, left ankle and foot; Z89.431 Acquired absence of right foot; Z89.411 Acquired absence of right great toe; R60.0 Localized edema; N28.9 Disorder of kidney and ureter, unspecified; I10 Essential (primary) hypertension; D50.9 Iron deficiency anemia, unspecified; Z01.810 Encounter for preprocedural cardiovascular examination; Z01.811 Encounter for preprocedural respiratory examination ==

== ENCOUNTER → 2019-10-29 | Outpatient (CLI) | payer BC ==
[~2019-10-29] MED LIST changes: +ASPIR 8181 MG PO; +ATORVASTATIN CA20 MG PO; +CARVEDILOL12.5 MG PO; +LASIX80 MG PO; +LOSARTAN POTASS50 MG PO; +METOLAZONE5 MG PO; +NEPHRO-VITE TABL1 EA PO; +VELPHORO500 MG PO; +VITAMIN D PO
== END ==
LOC: WCC 13:34
PROVIDERS: ATTEND Podiatrist Foot & Ankle Surgery
DX: E11.621 Type 2 diabetes mellitus with foot ulcer (principal); M86.172 Other acute osteomyelitis, left ankle and foot; R60.0 Localized edema; S90.424A Blister (nonthermal), right lesser toe(s), initial encounter; Z89.411 Acquired absence of right great toe; Z89.431 Acquired absence of right foot; N28.9 Disorder of kidney and ureter, unspecified; I10 Essential (primary) hypertension; D50.9 Iron deficiency anemia, unspecified; Z01.810 Encounter for preprocedural cardiovascular examination; Z01.811 Encounter for preprocedural respiratory examination

== ENCOUNTER → 2019-11-05 | Outpatient (CLI) | payer BC ==
[~2019-11-05] MED LIST changes: +MINERAL OIL/PETROLAT/GLYCERI 6OZ BTL ONE
== END ==
LOC: WCC 16:16
PROVIDERS: ATTEND Podiatrist Foot & Ankle Surgery
DX: E11.621 Type 2 diabetes mellitus with foot ulcer (principal); M86.172 Other acute osteomyelitis, left ankle and foot; L97.519 Non-pressure chronic ulcer of other part of right foot with unspecified severity; R60.0 Localized edema; S90.424A Blister (nonthermal), right lesser toe(s), initial encounter; Z89.411 Acquired absence of right great toe; Z89.431 Acquired absence of right foot; N28.9 Disorder of kidney and ureter, unspecified; I10 Essential (primary) hypertension; D50.9 Iron deficiency anemia, unspecified; Z01.810 Encounter for preprocedural cardiovascular examination; Z01.811 Encounter for preprocedural respiratory examination
CPT/HCPCS: 36415; 82948; 87071; 87075; 87186; 87205; 88305; 88311

== ENCOUNTER → 2019-11-08 | Outpatient (CLI) | payer BC ==
[~2019-11-08] MED LIST changes: -MINERAL OIL/PETROLAT/GLYCERI 6OZ BTL ONE
== END ==
LOC: WCC 13:17
PROVIDERS: ATTEND Podiatrist Foot & Ankle Surgery
DX: E11.621 Type 2 diabetes mellitus with foot ulcer (principal); M86.172 Other acute osteomyelitis, left ankle and foot; L97.519 Non-pressure chronic ulcer of other part of right foot with unspecified severity; Z89.431 Acquired absence of right foot; Z89.411 Acquired absence of right great toe; R60.0 Localized edema; N28.9 Disorder of kidney and ureter, unspecified; I10 Essential (primary) hypertension; D50.9 Iron deficiency anemia, unspecified; Z01.810 Encounter for preprocedural cardiovascular examination; Z01.811 Encounter for preprocedural respiratory examination

== ENCOUNTER → 2019-11-12 | Outpatient (CLI) | payer BC | LOC: WCC 14:19 | PROVIDERS: ATTEND Podiatrist Foot & Ankle Surgery | DX: E11.621 Type 2 diabetes mellitus with foot ulcer (principal); L97.519 Non-pressure chronic ulcer of other part of right foot with unspecified severity; M86.172 Other acute osteomyelitis, left ankle and foot; B95.7 Other staphylococcus as the cause of diseases classified elsewhere; R60.0 Localized edema; Z89.411 Acquired absence of right great toe; Z89.431 Acquired absence of right foot; N28.9 Disorder of kidney and ureter, unspecified; I10 Essential (primary) hypertension; D50.9 Iron deficiency anemia, unspecified; Z01.810 Encounter for preprocedural cardiovascular examination; Z01.811 Encounter for preprocedural respiratory examination ==

== ENCOUNTER → 2019-11-19 | Outpatient (CLI) | payer BC | LOC: WCC 14:20 | PROVIDERS: ATTEND Podiatrist Foot & Ankle Surgery | DX: E11.621 Type 2 diabetes mellitus with foot ulcer (principal); M86.172 Other acute osteomyelitis, left ankle and foot; L97.519 Non-pressure chronic ulcer of other part of right foot with unspecified severity; R60.0 Localized edema; Z89.411 Acquired absence of right great toe; Z89.431 Acquired absence of right foot; B95.7 Other staphylococcus as the cause of diseases classified elsewhere; N28.9 Disorder of kidney and ureter, unspecified; I10 Essential (primary) hypertension; D50.9 Iron deficiency anemia, unspecified; Z01.810 Encounter for preprocedural cardiovascular examination; Z01.811 Encounter for preprocedural respiratory examination ==

== ENCOUNTER → 2019-11-26 | Outpatient (CLI) | payer BC ==
[~2019-11-26] MED LIST changes: -ASPIR 8181 MG PO; -ATORVASTATIN CA20 MG PO; -CARVEDILOL12.5 MG PO; -LASIX80 MG PO; -LOSARTAN POTASS50 MG PO; -METOLAZONE5 MG PO; -NEPHRO-VITE TABL1 EA PO; -VELPHORO500 MG PO; -VITAMIN D PO
== END ==
LOC: WCC 14:32
PROVIDERS: ATTEND Podiatrist Foot & Ankle Surgery
DX: E11.621 Type 2 diabetes mellitus with foot ulcer (principal); M86.172 Other acute osteomyelitis, left ankle and foot; L97.519 Non-pressure chronic ulcer of other part of right foot with unspecified severity; Z89.411 Acquired absence of right great toe; Z89.431 Acquired absence of right foot; R60.0 Localized edema; N28.9 Disorder of kidney and ureter, unspecified; I10 Essential (primary) hypertension; B95.7 Other staphylococcus as the cause of diseases classified elsewhere; D50.9 Iron deficiency anemia, unspecified; Z01.810 Encounter for preprocedural cardiovascular examination; Z01.811 Encounter for preprocedural respiratory examination

== ENCOUNTER → 2019-12-03 | Outpatient (CLI) | payer BC ==
[~2019-12-03] MED LIST changes: +ASPIR 8181 MG PO; +ATORVASTATIN CA20 MG PO; +CARVEDILOL12.5 MG PO; +LASIX80 MG PO; +LOSARTAN POTASS50 MG PO; +METOLAZONE5 MG PO; +NEPHRO-VITE TABL1 EA PO; +VELPHORO500 MG PO; +VITAMIN D PO
== END ==
LOC: WCC 13:36
PROVIDERS: ATTEND Podiatrist Foot & Ankle Surgery
DX: E11.621 Type 2 diabetes mellitus with foot ulcer (principal); M86.172 Other acute osteomyelitis, left ankle and foot; L97.519 Non-pressure chronic ulcer of other part of right foot with unspecified severity; R60.0 Localized edema; N28.9 Disorder of kidney and ureter, unspecified; I10 Essential (primary) hypertension; Z89.431 Acquired absence of right foot; Z89.411 Acquired absence of right great toe; B95.7 Other staphylococcus as the cause of diseases classified elsewhere; D50.9 Iron deficiency anemia, unspecified; Z01.810 Encounter for preprocedural cardiovascular examination; Z01.811 Encounter for preprocedural respiratory examination

== ENCOUNTER → 2019-12-07 | Day surgery (SDC) | payer BC, OTHER ==
[2019-12-04 09:23] LABS: BASOPHILS % 0.4 % (0.0-1.0); EOSINOPHILS # (AUTO) 0.2 (0.0-0.4); EOSINOPHILS % 2.4 % (0.0-6.0); HEMATOCRIT 27.8 % (38.2-49.6); HEMOGLOBIN 9.5 g/dL (14.0-18.0); LYMPHOCYTES # (AUTO) 1.3 (1.0-3.2); LYMPHOCYTES % 15.5 % (18.0-39.1); MEAN CORPUSCULAR HEMOGLOBIN 30.6 pg (28-32); MEAN CORPUSCULAR HGB CONC 34.2 g/dL (31-35); MEAN CORPUSCULAR VOLUME 89.7 fL (81-99); MONOCYTES % 11.5 % (4.4-11.3); NEUTROPHILS # (AUTO) 5.7 (2.1-6.9); NEUTROPHILS % 68.7 % (38.7-80.0); PLATELET COUNT 263 x10e3/uL (140-360); RED CELL DISTRIBUTION WIDTH 12.4 % (11.7-14.4)
[2019-12-04 09:36] LABS: INR 1.06; PROTHROMBIN TIME 14.5 seconds (11.9-14.5)
[2019-12-04 09:37] LABS: PARTIAL THROMBOPLASTIN TIME 41.8 seconds (23.8-35.5)
[2019-12-04 09:43] LABS: ANION GAP 16.2 mmol/L (8-16); CREATININE, SERUM 9.56 mg/dL (0.72-1.25); POTASSIUM 4.2 mmol/L (3.5-5.1)
[~2019-12-07] MED LIST changes: +BACITRACIN 50,000 UNIT VIAL ONE; +BUPIVACAINE HCL 0.5% INJ 30 ML VIAL INJ ONE; +CEFAZOLIN SOD 1 GM/NS 50ML 100 ML IV ONE; +FENTANYL CITRATE/PF 100MCG/2 ML INJ ONE; +LIDOCAINE HCL 2% LOCAL INJ 5 ML SDV VIAL INJ ONE; +NEOSTIGMINE 1 MG/ML 10ML VIAL ONE; +ONDANSETRON HCL INJ 2MG/ML 2ML 2 MG/ML VIAL ONE; +PROPOFOL IV EMULSION 10 MG/ML 20 ML VIAL ONE; +SEVOFLURANE INHAL SOLN 250 ML PEN BTL ONE; +SODIUM CHLORIDE 0.9% 500ML 500 ML ONE
[2019-12-07 09:05] VITALS: BP 141/80
--- NOTE | 2019-12-07 14:32 | Operative Report ---
DATE OF PROCEDURE: 12/07/2019 SURGEON: Elsy Gay DPM PREOPERATIVE DIAGNOSES: 1. Osteomyelitis, ulcer grade 3, right 2nd. 2. Diabetes with neuropathy. 3. End-stage renal disease. POSTOPERATIVE DIAGNOSES: 1. Osteomyelitis, ulcer grade 3, right 2nd. 2. Diabetes with neuropathy. 3. End-stage renal disease. PROCEDURE: Right 2nd amputation. PATHOLOGY: Removed. SPECIMEN: Sent for pathology. ANESTHESIA: General anesthetic. COMPLICATIONS: None. CONDITION: Stable. PROCEDURE IN DETAIL: Under mild sedation, the patient was brought to the operating room, placed on the operating table in supine position. Following IV sedation, anesthesia was obtained with a general anesthetic. At this point, the right foot was scrubbed, prepped, and draped in the usual aseptic manner. A fish-mouth type of incision was made overlying the 2nd. The incision was deepened down to the level of the PIPJ joint. At this point, there was noted to be mild odor. There was purulent drainage. It extended down to past the PIPJ joint. The MPJ joint appeared to be clear at this point. The digit was taken right at the MPJ. The area was then flushed with copious amount of normal sterile saline solution. All nonviable tissue was removed. Bone cultures and sensitivity were taken after irrigation. The specimen was then for pathology. The area was then closed, closing the deepest layer with 3-0 Vicryl and 4-0 nylon. Attention was then directed at clean dressing was applied consisting of Adaptic, 4x4s, Kerlix, and an Jack bandage. The patient tolerated the procedure and anesthesia well without complications, was transferred to recovery room with vital signs stable and vascular status intact. The patient will be discharged home when he meets criteria. He was given instructions to be nonweightbearing to wear postop shoe, to follow up with me and wound care and to call the office if any questions, concerns, or new problems arise. He has a prescription for antibiotic and he is instructed to take it. Discussed the importance of compliance at the preop appointment. Elsy Gay DPM ER/MODL /[id number]
== END | disposition home or self-care (01) ==
LOC: OR 05:22
PROVIDERS: ATTEND Podiatrist Foot & Ankle Surgery
DX: E11.69 Type 2 diabetes mellitus with other specified complication (principal); E11.40 Type 2 diabetes mellitus with diabetic neuropathy, unspecified; M86.171 Other acute osteomyelitis, right ankle and foot; M86.671 Other chronic osteomyelitis, right ankle and foot; E11.22 Type 2 diabetes mellitus with diabetic chronic kidney disease; I12.0 Hypertensive chronic kidney disease with stage 5 chronic kidney disease or end stage renal disease; N18.6 End stage renal disease; R06.83 Snoring; F41.9 Anxiety disorder, unspecified; Z01.810 Encounter for preprocedural cardiovascular examination; Z01.812 Encounter for preprocedural laboratory examination; Z11.59 Encounter for screening for other viral diseases; Z99.2 Dependence on renal dialysis; Z79.82 Long term (current) use of aspirin
CPT/HCPCS: 28820; 36415 ×2; 80048; 82948; 84132; 85025; 85610; 85730; 87071; 87075; 87186; 87205; 87635; 88305; 88311; 93005; J0690; J2001; J2405; J2704; J2710; J3010; J7040; 88304

== ENCOUNTER → 2019-12-10 | Outpatient (CLI) | payer BC ==
[~2019-12-10] MED LIST changes: -BACITRACIN 50,000 UNIT VIAL ONE; -BUPIVACAINE HCL 0.5% INJ 30 ML VIAL INJ ONE; -CEFAZOLIN SOD 1 GM/NS 50ML 100 ML IV ONE; -FENTANYL CITRATE/PF 100MCG/2 ML INJ ONE; -LIDOCAINE HCL 2% LOCAL INJ 5 ML SDV VIAL INJ ONE; -NEOSTIGMINE 1 MG/ML 10ML VIAL ONE; -ONDANSETRON HCL INJ 2MG/ML 2ML 2 MG/ML VIAL ONE; -PROPOFOL IV EMULSION 10 MG/ML 20 ML VIAL ONE; -SEVOFLURANE INHAL SOLN 250 ML PEN BTL ONE; -SODIUM CHLORIDE 0.9% 500ML 500 ML ONE
== END ==
LOC: WCC 14:07
PROVIDERS: ATTEND Podiatrist Foot & Ankle Surgery
DX: E11.621 Type 2 diabetes mellitus with foot ulcer (principal); M86.172 Other acute osteomyelitis, left ankle and foot; L98.492 Non-pressure chronic ulcer of skin of other sites with fat layer exposed; L97.519 Non-pressure chronic ulcer of other part of right foot with unspecified severity; R60.0 Localized edema; Z89.411 Acquired absence of right great toe; N28.9 Disorder of kidney and ureter, unspecified; I10 Essential (primary) hypertension; B95.7 Other staphylococcus as the cause of diseases classified elsewhere; D50.9 Iron deficiency anemia, unspecified; Z01.810 Encounter for preprocedural cardiovascular examination; Z01.811 Encounter for preprocedural respiratory examination

== ENCOUNTER → 2019-12-17 | Outpatient (CLI) | payer BC | LOC: WCC 14:07 | PROVIDERS: ATTEND Podiatrist Foot & Ankle Surgery | DX: E11.622 Type 2 diabetes mellitus with other skin ulcer (principal); E11.621 Type 2 diabetes mellitus with foot ulcer; M86.172 Other acute osteomyelitis, left ankle and foot; L98.492 Non-pressure chronic ulcer of skin of other sites with fat layer exposed; Z89.411 Acquired absence of right great toe; Z89.421 Acquired absence of other right toe(s); R60.0 Localized edema; N28.9 Disorder of kidney and ureter, unspecified; I10 Essential (primary) hypertension; B95.7 Other staphylococcus as the cause of diseases classified elsewhere; D50.9 Iron deficiency anemia, unspecified; Z01.810 Encounter for preprocedural cardiovascular examination; Z01.811 Encounter for preprocedural respiratory examination ==

== ENCOUNTER → 2019-12-31 | Outpatient (CLI) | payer BC | LOC: WCC 14:33 | PROVIDERS: ATTEND Podiatrist Foot & Ankle Surgery | DX: E11.621 Type 2 diabetes mellitus with foot ulcer (principal); E11.622 Type 2 diabetes mellitus with other skin ulcer; M86.172 Other acute osteomyelitis, left ankle and foot; L97.516 Non-pressure chronic ulcer of other part of right foot with bone involvement without evidence of necrosis; L97.521 Non-pressure chronic ulcer of other part of left foot limited to breakdown of skin; L97.512 Non-pressure chronic ulcer of other part of right foot with fat layer exposed; L98.492 Non-pressure chronic ulcer of skin of other sites with fat layer exposed; Z89.431 Acquired absence of right foot; R60.0 Localized edema; B95.7 Other staphylococcus as the cause of diseases classified elsewhere; N28.9 Disorder of kidney and ureter, unspecified; I10 Essential (primary) hypertension; D50.9 Iron deficiency anemia, unspecified; Z01.810 Encounter for preprocedural cardiovascular examination; Z01.811 Encounter for preprocedural respiratory examination ==

== ENCOUNTER → 2020-01-07 | Outpatient (CLI) | payer BC | LOC: WCC 13:54 | PROVIDERS: ATTEND Podiatrist Foot & Ankle Surgery | DX: E11.621 Type 2 diabetes mellitus with foot ulcer (principal); E11.622 Type 2 diabetes mellitus with other skin ulcer; M86.172 Other acute osteomyelitis, left ankle and foot; L97.516 Non-pressure chronic ulcer of other part of right foot with bone involvement without evidence of necrosis; L97.512 Non-pressure chronic ulcer of other part of right foot with fat layer exposed; L97.521 Non-pressure chronic ulcer of other part of left foot limited to breakdown of skin; L98.492 Non-pressure chronic ulcer of skin of other sites with fat layer exposed; S90.811A Abrasion, right foot, initial encounter; R60.0 Localized edema; Z89.431 Acquired absence of right foot; N28.9 Disorder of kidney and ureter, unspecified; I10 Essential (primary) hypertension; B95.7 Other staphylococcus as the cause of diseases classified elsewhere; D50.9 Iron deficiency anemia, unspecified; X58.XXXA Exposure to other specified factors, initial encounter; Z01.810 Encounter for preprocedural cardiovascular examination; Z01.811 Encounter for preprocedural respiratory examination ==

== ENCOUNTER → 2020-01-11 | Outpatient (CLI) | payer BC | LOC: WCC 13:45 | PROVIDERS: ATTEND Podiatrist Foot & Ankle Surgery | DX: E11.621 Type 2 diabetes mellitus with foot ulcer (principal); E11.622 Type 2 diabetes mellitus with other skin ulcer; M86.172 Other acute osteomyelitis, left ankle and foot; L97.516 Non-pressure chronic ulcer of other part of right foot with bone involvement without evidence of necrosis; L97.512 Non-pressure chronic ulcer of other part of right foot with fat layer exposed; L98.492 Non-pressure chronic ulcer of skin of other sites with fat layer exposed; L97.521 Non-pressure chronic ulcer of other part of left foot limited to breakdown of skin; R60.0 Localized edema; Z89.431 Acquired absence of right foot; B95.7 Other staphylococcus as the cause of diseases classified elsewhere; N28.9 Disorder of kidney and ureter, unspecified; I10 Essential (primary) hypertension; D50.9 Iron deficiency anemia, unspecified; Z01.810 Encounter for preprocedural cardiovascular examination; Z01.811 Encounter for preprocedural respiratory examination ==

== ENCOUNTER → 2020-02-04 | Outpatient (CLI) | payer BC | LOC: WCC 14:54 | PROVIDERS: ATTEND Podiatrist Foot & Ankle Surgery | DX: E11.621 Type 2 diabetes mellitus with foot ulcer (principal); M86.172 Other acute osteomyelitis, left ankle and foot; L97.526 Non-pressure chronic ulcer of other part of left foot with bone involvement without evidence of necrosis; L97.516 Non-pressure chronic ulcer of other part of right foot with bone involvement without evidence of necrosis; L97.512 Non-pressure chronic ulcer of other part of right foot with fat layer exposed; S90.811A Abrasion, right foot, initial encounter; N28.9 Disorder of kidney and ureter, unspecified; I10 Essential (primary) hypertension; D50.9 Iron deficiency anemia, unspecified; X58.XXXA Exposure to other specified factors, initial encounter; Z01.810 Encounter for preprocedural cardiovascular examination; Z01.811 Encounter for preprocedural respiratory examination; Z89.431 Acquired absence of right foot ==

== ENCOUNTER → 2020-02-08 | Outpatient (CLI) | payer BC | LOC: WCC 12:29 | PROVIDERS: ATTEND Podiatrist Foot & Ankle Surgery | DX: E11.621 Type 2 diabetes mellitus with foot ulcer (principal); M86.172 Other acute osteomyelitis, left ankle and foot; L97.526 Non-pressure chronic ulcer of other part of left foot with bone involvement without evidence of necrosis; L97.512 Non-pressure chronic ulcer of other part of right foot with fat layer exposed; N28.9 Disorder of kidney and ureter, unspecified; I10 Essential (primary) hypertension; D50.9 Iron deficiency anemia, unspecified; X58.XXXA Exposure to other specified factors, initial encounter; Z01.810 Encounter for preprocedural cardiovascular examination; Z01.811 Encounter for preprocedural respiratory examination ==

== ENCOUNTER → 2020-02-11 | Outpatient (CLI) | payer BC | LOC: WCC 14:20 | PROVIDERS: ATTEND Podiatrist Foot & Ankle Surgery | DX: E11.621 Type 2 diabetes mellitus with foot ulcer (principal); M86.172 Other acute osteomyelitis, left ankle and foot; L97.526 Non-pressure chronic ulcer of other part of left foot with bone involvement without evidence of necrosis; L97.512 Non-pressure chronic ulcer of other part of right foot with fat layer exposed; N28.9 Disorder of kidney and ureter, unspecified; I10 Essential (primary) hypertension; D50.9 Iron deficiency anemia, unspecified; X58.XXXA Exposure to other specified factors, initial encounter; Z01.810 Encounter for preprocedural cardiovascular examination; Z01.811 Encounter for preprocedural respiratory examination ==

== ENCOUNTER → 2020-02-18 | Outpatient (CLI) | payer BC | LOC: WCC 13:21 | PROVIDERS: ATTEND Podiatrist Foot & Ankle Surgery | DX: E11.621 Type 2 diabetes mellitus with foot ulcer (principal); M86.172 Other acute osteomyelitis, left ankle and foot; L97.526 Non-pressure chronic ulcer of other part of left foot with bone involvement without evidence of necrosis; L97.512 Non-pressure chronic ulcer of other part of right foot with fat layer exposed; N28.9 Disorder of kidney and ureter, unspecified; I10 Essential (primary) hypertension; D50.9 Iron deficiency anemia, unspecified; X58.XXXA Exposure to other specified factors, initial encounter; Z01.810 Encounter for preprocedural cardiovascular examination; Z01.811 Encounter for preprocedural respiratory examination ==

== ENCOUNTER → 2020-02-25 | Outpatient (CLI) | payer BC | LOC: WCC 13:18 | PROVIDERS: ATTEND Podiatrist Foot & Ankle Surgery | DX: E11.621 Type 2 diabetes mellitus with foot ulcer (principal); L97.526 Non-pressure chronic ulcer of other part of left foot with bone involvement without evidence of necrosis; L97.512 Non-pressure chronic ulcer of other part of right foot with fat layer exposed; M86.172 Other acute osteomyelitis, left ankle and foot; N28.9 Disorder of kidney and ureter, unspecified; I10 Essential (primary) hypertension; D50.9 Iron deficiency anemia, unspecified; X58.XXXA Exposure to other specified factors, initial encounter; Z01.810 Encounter for preprocedural cardiovascular examination; Z01.811 Encounter for preprocedural respiratory examination ==

== ENCOUNTER → 2020-03-03 | Outpatient (CLI) | payer BC | LOC: WCC 14:44 | PROVIDERS: ATTEND Podiatrist Foot & Ankle Surgery | DX: E11.621 Type 2 diabetes mellitus with foot ulcer (principal); M86.172 Other acute osteomyelitis, left ankle and foot; L97.526 Non-pressure chronic ulcer of other part of left foot with bone involvement without evidence of necrosis; L97.512 Non-pressure chronic ulcer of other part of right foot with fat layer exposed; N28.9 Disorder of kidney and ureter, unspecified; I10 Essential (primary) hypertension; D50.9 Iron deficiency anemia, unspecified; X58.XXXA Exposure to other specified factors, initial encounter; Z01.810 Encounter for preprocedural cardiovascular examination; Z01.811 Encounter for preprocedural respiratory examination ==

== ENCOUNTER → 2020-04-08 | Outpatient (CLI) | payer BC | LOC: WCC 14:46 | PROVIDERS: ATTEND Podiatrist Foot & Ankle Surgery | DX: E11.621 Type 2 diabetes mellitus with foot ulcer (principal); L97.512 Non-pressure chronic ulcer of other part of right foot with fat layer exposed; L97.526 Non-pressure chronic ulcer of other part of left foot with bone involvement without evidence of necrosis; M86.172 Other acute osteomyelitis, left ankle and foot; N28.9 Disorder of kidney and ureter, unspecified; I10 Essential (primary) hypertension; D50.9 Iron deficiency anemia, unspecified; X58.XXXA Exposure to other specified factors, initial encounter; Z01.810 Encounter for preprocedural cardiovascular examination; Z01.811 Encounter for preprocedural respiratory examination ==

== ENCOUNTER → 2020-05-20 | Outpatient (CLI) | payer BC | LOC: WCC 15:12 | PROVIDERS: ATTEND Podiatrist Foot & Ankle Surgery | DX: E11.621 Type 2 diabetes mellitus with foot ulcer (principal); M86.172 Other acute osteomyelitis, left ankle and foot; L97.526 Non-pressure chronic ulcer of other part of left foot with bone involvement without evidence of necrosis; L97.512 Non-pressure chronic ulcer of other part of right foot with fat layer exposed; L97.421 Non-pressure chronic ulcer of left heel and midfoot limited to breakdown of skin; L97.411 Non-pressure chronic ulcer of right heel and midfoot limited to breakdown of skin; D50.9 Iron deficiency anemia, unspecified; I10 Essential (primary) hypertension; N28.9 Disorder of kidney and ureter, unspecified; X58.XXXA Exposure to other specified factors, initial encounter; Z01.810 Encounter for preprocedural cardiovascular examination; Z01.811 Encounter for preprocedural respiratory examination ==

== ENCOUNTER → 2020-07-01 | Outpatient (CLI) | payer BC ==
[~2020-07-01] MED LIST changes: +MINERAL OIL/PETROLAT/GLYCERI 6OZ BTL ONE
== END ==
LOC: WCC 14:31
PROVIDERS: ATTEND Podiatrist Foot & Ankle Surgery
DX: E11.621 Type 2 diabetes mellitus with foot ulcer (principal); M86.172 Other acute osteomyelitis, left ankle and foot; L97.526 Non-pressure chronic ulcer of other part of left foot with bone involvement without evidence of necrosis; L97.512 Non-pressure chronic ulcer of other part of right foot with fat layer exposed; L97.411 Non-pressure chronic ulcer of right heel and midfoot limited to breakdown of skin; L97.521 Non-pressure chronic ulcer of other part of left foot limited to breakdown of skin; L97.421 Non-pressure chronic ulcer of left heel and midfoot limited to breakdown of skin; L97.511 Non-pressure chronic ulcer of other part of right foot limited to breakdown of skin; N28.9 Disorder of kidney and ureter, unspecified; I10 Essential (primary) hypertension; D50.9 Iron deficiency anemia, unspecified; X58.XXXA Exposure to other specified factors, initial encounter; Z01.810 Encounter for preprocedural cardiovascular examination; Z01.811 Encounter for preprocedural respiratory examination

== ENCOUNTER 2020-08-19 15:03 | Outpatient (RCR) | payer MEDICARE ==
[~2020-08-19 15:03] MED LIST changes: -MINERAL OIL/PETROLAT/GLYCERI 6OZ BTL ONE
[2020-08-19] MEDS ORDERED: TRYPSIN/BALSAM PERU/CASTOR OIL ONE (16:22)
== END 2020-08-31 ==
LOC: WCC 15:03
PROVIDERS: ATTEND Podiatrist Foot & Ankle Surgery
DX: E11.621 Type 2 diabetes mellitus with foot ulcer (principal); M86.172 Other acute osteomyelitis, left ankle and foot; L97.521 Non-pressure chronic ulcer of other part of left foot limited to breakdown of skin; L97.421 Non-pressure chronic ulcer of left heel and midfoot limited to breakdown of skin; L97.511 Non-pressure chronic ulcer of other part of right foot limited to breakdown of skin; L97.411 Non-pressure chronic ulcer of right heel and midfoot limited to breakdown of skin; I10 Essential (primary) hypertension; N28.9 Disorder of kidney and ureter, unspecified; D50.9 Iron deficiency anemia, unspecified; X58.XXXA Exposure to other specified factors, initial encounter; Z01.810 Encounter for preprocedural cardiovascular examination; Z01.811 Encounter for preprocedural respiratory examination

== ENCOUNTER 2020-09-09 14:21 | Outpatient (RCR) | payer MEDICARE, BC ==
[~2020-09-09 14:21] MED LIST changes: +MINERAL OIL/PETROLAT/GLYCERI 2OZ CRM ONE
== END 2020-09-28 ==
LOC: WCC 14:21
PROVIDERS: ATTEND Podiatrist Foot & Ankle Surgery
DX: E11.621 Type 2 diabetes mellitus with foot ulcer (principal); M86.172 Other acute osteomyelitis, left ankle and foot; L97.521 Non-pressure chronic ulcer of other part of left foot limited to breakdown of skin; L97.511 Non-pressure chronic ulcer of other part of right foot limited to breakdown of skin; L97.421 Non-pressure chronic ulcer of left heel and midfoot limited to breakdown of skin; L97.411 Non-pressure chronic ulcer of right heel and midfoot limited to breakdown of skin; I10 Essential (primary) hypertension; N28.9 Disorder of kidney and ureter, unspecified; D50.9 Iron deficiency anemia, unspecified; Z01.810 Encounter for preprocedural cardiovascular examination; Z01.811 Encounter for preprocedural respiratory examination; X58.XXXA Exposure to other specified factors, initial encounter

== ENCOUNTER 2020-10-23 15:16 | Outpatient (RCR) | payer MEDICARE, BC ==
[~2020-10-23 15:16] MED LIST changes: +MINERAL OIL/PETROLAT/GLYCERI 6OZ BTL ONE
== END 2020-10-29 ==
LOC: WCC 15:16
PROVIDERS: ATTEND Podiatrist Foot & Ankle Surgery
DX: E11.621 Type 2 diabetes mellitus with foot ulcer (principal); M86.172 Other acute osteomyelitis, left ankle and foot; L97.411 Non-pressure chronic ulcer of right heel and midfoot limited to breakdown of skin; L97.421 Non-pressure chronic ulcer of left heel and midfoot limited to breakdown of skin; S90.822A Blister (nonthermal), left foot, initial encounter; N28.9 Disorder of kidney and ureter, unspecified; I10 Essential (primary) hypertension; D50.9 Iron deficiency anemia, unspecified; X58.XXXA Exposure to other specified factors, initial encounter; Z01.810 Encounter for preprocedural cardiovascular examination; Z01.811 Encounter for preprocedural respiratory examination; Z94.0 Kidney transplant status

== ENCOUNTER 2020-11-26 13:33 | Outpatient (RCR) | payer MEDICARE, BC ==
[~2020-11-26 13:33] MED LIST changes: -MINERAL OIL/PETROLAT/GLYCERI 2OZ CRM ONE; +TRYPSIN/BALSAM PERU/CASTOR OIL ONE
[2020-11-26] MEDS ORDERED: MINERAL OIL/PETROLAT/GLYCERI 6OZ BTL ONE (14:19)
== END 2020-11-28 ==
LOC: WCC 13:33
PROVIDERS: ATTEND Podiatrist Foot & Ankle Surgery
DX: E11.621 Type 2 diabetes mellitus with foot ulcer (principal); M86.172 Other acute osteomyelitis, left ankle and foot; L97.421 Non-pressure chronic ulcer of left heel and midfoot limited to breakdown of skin; L97.411 Non-pressure chronic ulcer of right heel and midfoot limited to breakdown of skin; Z94.0 Kidney transplant status; N28.9 Disorder of kidney and ureter, unspecified; I10 Essential (primary) hypertension; D50.9 Iron deficiency anemia, unspecified; X58.XXXA Exposure to other specified factors, initial encounter

== ENCOUNTER 2020-12-26 14:17 | Outpatient (RCR) | payer MEDICARE, BC ==
[2020-12-09 15:08] LABS: BASOPHILS % 0.5 % (0.0-1.0); EOSINOPHILS % 0.5 % (0.0-6.0); HEMATOCRIT 31.1 % (38.2-49.6); HEMOGLOBIN 10.2 g/dL (14.0-18.0); LYMPHOCYTES # (AUTO) 0.3 (1.0-3.2); LYMPHOCYTES % 6.5 % (18.0-39.1); MEAN CORPUSCULAR HEMOGLOBIN 31.4 pg (28-32); MEAN CORPUSCULAR HGB CONC 32.8 g/dL (31-35); MEAN CORPUSCULAR VOLUME 95.7 fL (81-99); MONOCYTES # (AUTO) 0.7 (0.2-0.8); MONOCYTES % 17.9 % (4.4-11.3); NEUTROPHILS % 52.8 % (38.7-80.0); PLATELET COUNT 235 x10e3/uL (140-360); RED BLOOD COUNT 3.25 x10e6/uL (4.3-5.7); RED CELL DISTRIBUTION WIDTH 13.3 % (11.7-14.4)
[2020-12-09 15:28] LABS: ALBUMIN 3.7 g/dL (3.5-5.0); ALBUMIN/GLOBULIN RATIO 1.2 (0.8-2.0); ANION GAP 15.9 mmol/L (8-16); CALCIUM 9.5 mg/dL (8.4-10.2); CREATININE, SERUM 2.59 mg/dL (0.72-1.25)
[2020-12-09 15:29] LABS: POTASSIUM 5.9 mmol/L (3.5-5.1)
[2020-12-09 16:28] LABS: BAND NEUTROPHILS % (MANUAL) 10 %; LYMPHOCYTES % (MANUAL) 6 % (19-48); METAMYELOCYTES % (MANUAL) 4 % (0-0); MONOCYTES % (MANUAL) 23 % (3.4-9.0); MYELOCYTES % (MANUAL) 2 % (0-0); NEUTROPHILS % (MANUAL) 54 % (40-74)
[2020-12-09 16:29] LABS: PLATELET ESTIMATE ADEQUATE; PLATELET MORPHOLOGY COMMENT NORMAL
[2020-12-09 16:30] LABS: RBC MORPHOLOGY COMMENT NORMAL
[~2020-12-26 14:17] MED LIST changes: +MINERAL OIL/PETROLAT/GLYCERI 2OZ CRM ONE; +MUPIROCIN 2% OINT 22 GM TUBE ONE; +SODIUM CHLORIDE 0.9% INJ 250 ML BAG ONE; -TRYPSIN/BALSAM PERU/CASTOR OIL ONE
== END 2020-12-29 ==
LOC: WCC 14:17
PROVIDERS: ATTEND Podiatrist Foot & Ankle Surgery
DX: E11.621 Type 2 diabetes mellitus with foot ulcer (principal); M86.172 Other acute osteomyelitis, left ankle and foot; L97.411 Non-pressure chronic ulcer of right heel and midfoot limited to breakdown of skin; N28.9 Disorder of kidney and ureter, unspecified; I10 Essential (primary) hypertension; D50.9 Iron deficiency anemia, unspecified; X58.XXXA Exposure to other specified factors, initial encounter; Z01.810 Encounter for preprocedural cardiovascular examination; Z01.811 Encounter for preprocedural respiratory examination; Z94.0 Kidney transplant status
CPT/HCPCS: 11042 ×3; 15275; 36415; 80053; 83036; 84134; 85025; 85651; 87071; 87075; 87186; 87205; 99212 ×7; 99213 ×5; J7050; Q4186

== ENCOUNTER 2021-01-27 15:30 | Outpatient (RCR) | payer MEDICARE, BC ==
[~2021-01-27 15:30] MED LIST changes: +LIDOCAINE VISC 2% SOLN 15 ML UDC ONE; -MINERAL OIL/PETROLAT/GLYCERI 2OZ CRM ONE; -MUPIROCIN 2% OINT 22 GM TUBE ONE; -SODIUM CHLORIDE 0.9% INJ 250 ML BAG ONE
== END 2021-01-28 ==
LOC: WCC 15:30
PROVIDERS: ATTEND Podiatrist Foot & Ankle Surgery
DX: E11.621 Type 2 diabetes mellitus with foot ulcer (principal); M86.172 Other acute osteomyelitis, left ankle and foot; L97.411 Non-pressure chronic ulcer of right heel and midfoot limited to breakdown of skin; N28.9 Disorder of kidney and ureter, unspecified; Z94.0 Kidney transplant status; I10 Essential (primary) hypertension; D50.9 Iron deficiency anemia, unspecified; Z01.810 Encounter for preprocedural cardiovascular examination; Z01.811 Encounter for preprocedural respiratory examination; X58.XXXA Exposure to other specified factors, initial encounter
CPT/HCPCS: 15275 ×3; 36415 ×2; 82948 ×2; 99212 ×8; 99213 ×3; Q4186 ×3

== ENCOUNTER 2021-02-27 15:35 | Outpatient (RCR) | payer MEDICARE, BC ==
[~2021-02-27 15:35] MED LIST changes: -LIDOCAINE VISC 2% SOLN 15 ML UDC ONE
== END 2021-02-28 ==
LOC: WCC 15:35
PROVIDERS: ATTEND Podiatrist Foot & Ankle Surgery
DX: E11.621 Type 2 diabetes mellitus with foot ulcer (principal); L97.411 Non-pressure chronic ulcer of right heel and midfoot limited to breakdown of skin; M86.172 Other acute osteomyelitis, left ankle and foot; Z94.0 Kidney transplant status; N28.9 Disorder of kidney and ureter, unspecified; I10 Essential (primary) hypertension; D50.9 Iron deficiency anemia, unspecified; Z01.810 Encounter for preprocedural cardiovascular examination; Z01.811 Encounter for preprocedural respiratory examination; X58.XXXA Exposure to other specified factors, initial encounter
CPT/HCPCS: 11042; 15275 ×2; 36415 ×3; 82948 ×3; 99212 ×8; 99213 ×3; Q4186 ×2

== ENCOUNTER → 2021-03-31 | Outpatient (RCR) | payer MEDICARE, BC ==
[~2021-03-31] MED LIST changes: +CADEXOMER IODINE 30 GM TUBE ONE; -MINERAL OIL/PETROLAT/GLYCERI 6OZ BTL ONE
== END ==
LOC: WCC 03-02 14:49
PROVIDERS: ATTEND Podiatrist Foot & Ankle Surgery
DX: E11.621 Type 2 diabetes mellitus with foot ulcer (principal); L97.411 Non-pressure chronic ulcer of right heel and midfoot limited to breakdown of skin; M86.172 Other acute osteomyelitis, left ankle and foot; Z94.0 Kidney transplant status; N28.9 Disorder of kidney and ureter, unspecified; I10 Essential (primary) hypertension; D50.9 Iron deficiency anemia, unspecified; Z01.810 Encounter for preprocedural cardiovascular examination; Z01.811 Encounter for preprocedural respiratory examination; X58.XXXA Exposure to other specified factors, initial encounter
CPT/HCPCS: 11042 ×4; 15275; 87071; 87075; 87186; 87205; 99212 ×9; 99213 ×10; Q4186

== ENCOUNTER → 2021-04-17 | Outpatient (CLI) | payer MEDICARE, BC ==
[~2021-04-17] MED LIST changes: -CADEXOMER IODINE 30 GM TUBE ONE
== END ==
LOC: RAD 09:59
PROVIDERS: ATTEND Family Medicine Adult Medicine
DX: Z01.810 Encounter for preprocedural cardiovascular examination (principal); E11.621 Type 2 diabetes mellitus with foot ulcer; L97.418 Non-pressure chronic ulcer of right heel and midfoot with other specified severity; M86.171 Other acute osteomyelitis, right ankle and foot
CPT/HCPCS: 71046

== ENCOUNTER → 2021-04-30 | Outpatient (RCR) | payer MEDICARE, BC ==
[~2021-04-30] MED LIST changes: +DAPSONE100 MG PO; +FAMOTIDINE20 MG PO; +HUMALOG MI100 UNIT/2 SQ; +HUMULIN N100 UNITS/ SC; +MYCOPHENOLATE500 MG PO; +PREDNISONE5 MG PO; +SODIUM BICARBO650 MG PO; +TACROLIMUS1 MG PO
== END ==
LOC: WCC 04-01 14:59
PROVIDERS: ATTEND Family Medicine Adult Medicine
DX: E11.621 Type 2 diabetes mellitus with foot ulcer (principal); M86.172 Other acute osteomyelitis, left ankle and foot; L97.521 Non-pressure chronic ulcer of other part of left foot limited to breakdown of skin; L97.411 Non-pressure chronic ulcer of right heel and midfoot limited to breakdown of skin; Z94.0 Kidney transplant status; N28.9 Disorder of kidney and ureter, unspecified; I10 Essential (primary) hypertension; D50.9 Iron deficiency anemia, unspecified; X58.XXXA Exposure to other specified factors, initial encounter; B96.89 Other specified bacterial agents as the cause of diseases classified elsewhere; Z01.810 Encounter for preprocedural cardiovascular examination; Z01.811 Encounter for preprocedural respiratory examination
CPT/HCPCS: 11042 ×3; 36415 ×7; 82948 ×8; 87071; 87075; 87205; 93005; 99212 ×2; 99213 ×15; G0277 ×7

== ENCOUNTER → 2021-05-05 | Day surgery (SDC) | payer MEDICARE, BC ==
[~2021-05-05] MED LIST changes: +BUPIVACAINE HCL 0.5% INJ 30 ML VIAL INJ ONE; +FENTANYL CITRATE/PF 100MCG/2 ML INJ ONE; +LIDOCAINE HCL 1% LOCAL INJ 20 ML VIAL ONE; +LIDOCAINE HCL 2% LOCAL INJ 5 ML SDV VIAL INJ ONE; +MIDAZOLAM HCL 2 MG/2 ML VIAL ONE; +POVIDONE IODINE 0.05% 0.05 % ML PO ONE; +PROPOFOL IV EMULSION 10 MG/ML 20 ML VIAL IV ONE
[2021-05-05 14:40] VITALS: BP 131/77
== END | disposition home or self-care (01) ==
LOC: OR 10:54
PROVIDERS: ATTEND Podiatrist Foot & Ankle Surgery
DX: E11.69 Type 2 diabetes mellitus with other specified complication (principal); M86.9 Osteomyelitis, unspecified; E11.621 Type 2 diabetes mellitus with foot ulcer; L97.416 Non-pressure chronic ulcer of right heel and midfoot with bone involvement without evidence of necrosis; L97.529 Non-pressure chronic ulcer of other part of left foot with unspecified severity; E11.22 Type 2 diabetes mellitus with diabetic chronic kidney disease; N18.6 End stage renal disease; I25.2 Old myocardial infarction; Z01.812 Encounter for preprocedural laboratory examination; Z20.822 Contact with and (suspected) exposure to COVID-19; Z79.82 Long term (current) use of aspirin; Z79.4 Long term (current) use of insulin; Z94.0 Kidney transplant status
CPT/HCPCS: 15275; 36415; 82948; 87071; 87075; 87205; J0690; J2001; J2250; J2704; J3010; Q4104; U0002

== ENCOUNTER 2021-05-29 09:58 | Outpatient (RCR) | payer MEDICARE, BC ==
[~2021-05-29 09:58] MED LIST changes: -BUPIVACAINE HCL 0.5% INJ 30 ML VIAL INJ ONE; -FENTANYL CITRATE/PF 100MCG/2 ML INJ ONE; -LIDOCAINE HCL 1% LOCAL INJ 20 ML VIAL ONE; -LIDOCAINE HCL 2% LOCAL INJ 5 ML SDV VIAL INJ ONE; -MIDAZOLAM HCL 2 MG/2 ML VIAL ONE; -POVIDONE IODINE 0.05% 0.05 % ML PO ONE; -PROPOFOL IV EMULSION 10 MG/ML 20 ML VIAL IV ONE; +TRYPSIN/BALSAM PERU/CASTOR OIL ONE
== END 2021-05-31 ==
LOC: WCC 09:58
PROVIDERS: ATTEND Podiatrist Foot & Ankle Surgery
DX: E11.621 Type 2 diabetes mellitus with foot ulcer (principal); L97.521 Non-pressure chronic ulcer of other part of left foot limited to breakdown of skin; L97.418 Non-pressure chronic ulcer of right heel and midfoot with other specified severity; M86.172 Other acute osteomyelitis, left ankle and foot; M86.171 Other acute osteomyelitis, right ankle and foot; Z94.0 Kidney transplant status; N28.9 Disorder of kidney and ureter, unspecified; D50.9 Iron deficiency anemia, unspecified; I10 Essential (primary) hypertension; Z01.810 Encounter for preprocedural cardiovascular examination; B96.89 Other specified bacterial agents as the cause of diseases classified elsewhere; Z01.811 Encounter for preprocedural respiratory examination; X58.XXXA Exposure to other specified factors, initial encounter
CPT/HCPCS: 11042 ×2; 36415 ×16; 82948 ×16; 97602; 97607 ×6; 99212 ×4; 99213 ×15; G0277 ×16

== ENCOUNTER → 2021-06-30 | Outpatient (RCR) | payer MEDICARE, BC ==
[~2021-06-30] MED LIST changes: +LIDOCAINE VISC 2% SOLN 15 ML UDC ONE; +MINERAL OIL/PETROLAT/GLYCERI 6OZ BTL ONE
== END ==
LOC: WCC 06-01 08:42
PROVIDERS: ATTEND Internal Medicine Infectious Disease
DX: E11.621 Type 2 diabetes mellitus with foot ulcer (principal); M86.171 Other acute osteomyelitis, right ankle and foot; M86.172 Other acute osteomyelitis, left ankle and foot; L97.521 Non-pressure chronic ulcer of other part of left foot limited to breakdown of skin; L97.418 Non-pressure chronic ulcer of right heel and midfoot with other specified severity; N28.9 Disorder of kidney and ureter, unspecified; I10 Essential (primary) hypertension; D50.9 Iron deficiency anemia, unspecified; B96.89 Other specified bacterial agents as the cause of diseases classified elsewhere; Z01.810 Encounter for preprocedural cardiovascular examination; Z01.811 Encounter for preprocedural respiratory examination; Z94.0 Kidney transplant status; X58.XXXA Exposure to other specified factors, initial encounter
CPT/HCPCS: 11042 ×4; 11044 ×2; 12020; 36415 ×12; 82948 ×12; 87071; 87075; 87186; 87205; 88304; 88311; 99212; 99213 ×20; G0277 ×12

== ENCOUNTER → 2021-07-16 | Outpatient (CLI) | payer MEDICARE, BC ==
[~2021-07-16] MED LIST changes: -LIDOCAINE VISC 2% SOLN 15 ML UDC ONE; -MINERAL OIL/PETROLAT/GLYCERI 6OZ BTL ONE; -TRYPSIN/BALSAM PERU/CASTOR OIL ONE
== END ==
LOC: RAD 10:24
PROVIDERS: ATTEND Podiatrist Foot & Ankle Surgery
DX: T86.828 Other complications of skin graft (allograft) (autograft) (principal); Y83.8 Other surgical procedures as the cause of abnormal reaction of the patient, or of later complication, without mention of misadventure at the time of the procedure; I87.331 Chronic venous hypertension (idiopathic) with ulcer and inflammation of right lower extremity; L97.811 Non-pressure chronic ulcer of other part of right lower leg limited to breakdown of skin

== ENCOUNTER 2021-07-30 12:47 | Outpatient (RCR) | payer MEDICARE, BC ==
[~2021-07-30 12:47] MED LIST changes: +BALSAM PERU/CASTOR OIL 60 GM OINT...G. TP ONE; +HYDROCORTISONE 1% CREAM 30 GM TUBE ONE; +MINERAL OIL/PETROLAT/GLYCERI 6OZ BTL ONE; +MUPIROCIN 2% OINT 22 GM TUBE ONE; +TRYPSIN/BALSAM PERU/CASTOR OIL ONE
== END 2021-07-31 ==
LOC: WCC 12:47
PROVIDERS: ATTEND Podiatrist Foot & Ankle Surgery
DX: T86.828 Other complications of skin graft (allograft) (autograft) (principal); E11.621 Type 2 diabetes mellitus with foot ulcer; M86.172 Other acute osteomyelitis, left ankle and foot; M86.171 Other acute osteomyelitis, right ankle and foot; L97.418 Non-pressure chronic ulcer of right heel and midfoot with other specified severity; L97.521 Non-pressure chronic ulcer of other part of left foot limited to breakdown of skin; B96.89 Other specified bacterial agents as the cause of diseases classified elsewhere; D50.9 Iron deficiency anemia, unspecified; Z94.0 Kidney transplant status; I10 Essential (primary) hypertension; N28.9 Disorder of kidney and ureter, unspecified; X58.XXXA Exposure to other specified factors, initial encounter; Z01.810 Encounter for preprocedural cardiovascular examination; Z01.811 Encounter for preprocedural respiratory examination
CPT/HCPCS: 11042 ×2; 36415 ×2; 82948 ×2; 87071; 87075; 87205; 99212 ×3; 99213 ×9; G0277 ×6

== ENCOUNTER 2021-08-25 08:38 | Outpatient (RCR) | payer MEDICARE, BC ==
[~2021-08-25 08:38] MED LIST changes: -BALSAM PERU/CASTOR OIL 60 GM OINT...G. TP ONE; -HYDROCORTISONE 1% CREAM 30 GM TUBE ONE; -MINERAL OIL/PETROLAT/GLYCERI 6OZ BTL ONE; -MUPIROCIN 2% OINT 22 GM TUBE ONE
== END 2021-08-31 ==
LOC: WCC 08:38
PROVIDERS: ATTEND Podiatrist Foot & Ankle Surgery
DX: T86.828 Other complications of skin graft (allograft) (autograft) (principal); M86.172 Other acute osteomyelitis, left ankle and foot; M86.171 Other acute osteomyelitis, right ankle and foot; E11.621 Type 2 diabetes mellitus with foot ulcer; L97.418 Non-pressure chronic ulcer of right heel and midfoot with other specified severity; I10 Essential (primary) hypertension; N28.9 Disorder of kidney and ureter, unspecified; Z94.0 Kidney transplant status; D50.9 Iron deficiency anemia, unspecified; B96.89 Other specified bacterial agents as the cause of diseases classified elsewhere; X58.XXXA Exposure to other specified factors, initial encounter; Z01.810 Encounter for preprocedural cardiovascular examination; Z01.811 Encounter for preprocedural respiratory examination
CPT/HCPCS: 36415; 82948

== ENCOUNTER 2021-09-15 09:31 | Outpatient (RCR) | payer MEDICARE, BC ==
[~2021-09-15 09:31] MED LIST changes: +MUPIROCIN 2% OINT 22 GM TUBE ONE
[2021-09-15] MEDS ORDERED: MINERAL OIL/PETROLAT/GLYCERI 6OZ BTL ONE (13:13)
== END 2021-09-28 ==
LOC: WCC 09:31
PROVIDERS: ATTEND Podiatrist Foot & Ankle Surgery
DX: T86.828 Other complications of skin graft (allograft) (autograft) (principal); E11.621 Type 2 diabetes mellitus with foot ulcer; M86.172 Other acute osteomyelitis, left ankle and foot; M86.171 Other acute osteomyelitis, right ankle and foot; L97.418 Non-pressure chronic ulcer of right heel and midfoot with other specified severity; N28.9 Disorder of kidney and ureter, unspecified; I10 Essential (primary) hypertension; D50.9 Iron deficiency anemia, unspecified; X58.XXXA Exposure to other specified factors, initial encounter; Z01.810 Encounter for preprocedural cardiovascular examination; Z01.811 Encounter for preprocedural respiratory examination; Z94.0 Kidney transplant status

== ENCOUNTER 2021-10-27 14:18 | Outpatient (RCR) | payer MEDICARE, BC ==
[~2021-10-27 14:18] MED LIST changes: +LIDOCAINE VISC 2% SOLN 15 ML UDC ONE; +LIDOCAINE/PRILOCAINE 2.5-2.5% KIT ONE; -MUPIROCIN 2% OINT 22 GM TUBE ONE
== END 2021-10-29 ==
LOC: WCC 14:18
PROVIDERS: ATTEND Podiatrist Foot & Ankle Surgery
DX: E13.621 Other specified diabetes mellitus with foot ulcer (principal); M86.172 Other acute osteomyelitis, left ankle and foot; L97.411 Non-pressure chronic ulcer of right heel and midfoot limited to breakdown of skin; L84 Corns and callosities; N28.9 Disorder of kidney and ureter, unspecified; I10 Essential (primary) hypertension; D50.9 Iron deficiency anemia, unspecified; X58.XXXA Exposure to other specified factors, initial encounter; Z01.810 Encounter for preprocedural cardiovascular examination; Z01.811 Encounter for preprocedural respiratory examination; Z94.0 Kidney transplant status

== ENCOUNTER → 2021-12-29 | Outpatient (RCR) | payer MEDICARE, BC ==
[~2021-12-29] MED LIST changes: -LIDOCAINE/PRILOCAINE 2.5-2.5% KIT ONE
== END ==
LOC: WCC 12-01 15:03
PROVIDERS: ATTEND Podiatrist Foot & Ankle Surgery
DX: E11.621 Type 2 diabetes mellitus with foot ulcer (principal); M86.172 Other acute osteomyelitis, left ankle and foot; L97.416 Non-pressure chronic ulcer of right heel and midfoot with bone involvement without evidence of necrosis; L97.428 Non-pressure chronic ulcer of left heel and midfoot with other specified severity; D50.9 Iron deficiency anemia, unspecified; N28.9 Disorder of kidney and ureter, unspecified; I10 Essential (primary) hypertension; X58.XXXA Exposure to other specified factors, initial encounter; Z01.810 Encounter for preprocedural cardiovascular examination; Z01.811 Encounter for preprocedural respiratory examination; Z94.0 Kidney transplant status

== ENCOUNTER → 2022-01-28 | Outpatient (RCR) | payer MEDICARE, BC | LOC: WCC 01-01 11:43 | PROVIDERS: ATTEND Podiatrist Foot & Ankle Surgery | DX: E11.621 Type 2 diabetes mellitus with foot ulcer (principal); M86.172 Other acute osteomyelitis, left ankle and foot; L97.416 Non-pressure chronic ulcer of right heel and midfoot with bone involvement without evidence of necrosis; L97.428 Non-pressure chronic ulcer of left heel and midfoot with other specified severity; N28.9 Disorder of kidney and ureter, unspecified; I73.89 Other specified peripheral vascular diseases; I10 Essential (primary) hypertension; D50.9 Iron deficiency anemia, unspecified; X58.XXXA Exposure to other specified factors, initial encounter; Z01.810 Encounter for preprocedural cardiovascular examination; Z01.811 Encounter for preprocedural respiratory examination; Z94.0 Kidney transplant status | CPT/HCPCS: 36415; 82948 ==

== ENCOUNTER 2022-02-25 14:48 | Outpatient (RCR) | payer MEDICARE, BC ==
[~2022-02-25 14:48] MED LIST changes: -LIDOCAINE VISC 2% SOLN 15 ML UDC ONE; +MINERAL OIL/PETROLAT/GLYCERI 6OZ BTL ONE
== END 2022-02-28 ==
LOC: WCC 14:48
PROVIDERS: ATTEND Podiatrist Foot & Ankle Surgery
DX: E11.621 Type 2 diabetes mellitus with foot ulcer (principal); M86.172 Other acute osteomyelitis, left ankle and foot; L97.416 Non-pressure chronic ulcer of right heel and midfoot with bone involvement without evidence of necrosis; L97.428 Non-pressure chronic ulcer of left heel and midfoot with other specified severity; I73.89 Other specified peripheral vascular diseases; N28.9 Disorder of kidney and ureter, unspecified; I10 Essential (primary) hypertension; D50.9 Iron deficiency anemia, unspecified; X58.XXXA Exposure to other specified factors, initial encounter; Z01.810 Encounter for preprocedural cardiovascular examination; Z01.811 Encounter for preprocedural respiratory examination; Z94.0 Kidney transplant status

== ENCOUNTER 2022-03-30 14:14 | Outpatient (RCR) | payer MEDICARE, BC ==
[~2022-03-30 14:14] MED LIST changes: -MINERAL OIL/PETROLAT/GLYCERI 6OZ BTL ONE
== END 2022-03-31 ==
LOC: WCC 14:14
PROVIDERS: ATTEND Podiatrist Foot & Ankle Surgery
DX: E11.621 Type 2 diabetes mellitus with foot ulcer (principal); M86.172 Other acute osteomyelitis, left ankle and foot; L97.428 Non-pressure chronic ulcer of left heel and midfoot with other specified severity; L97.416 Non-pressure chronic ulcer of right heel and midfoot with bone involvement without evidence of necrosis; I73.89 Other specified peripheral vascular diseases; Z94.0 Kidney transplant status; N28.9 Disorder of kidney and ureter, unspecified; I10 Essential (primary) hypertension; D50.9 Iron deficiency anemia, unspecified; Z01.810 Encounter for preprocedural cardiovascular examination; Z01.811 Encounter for preprocedural respiratory examination; X58.XXXA Exposure to other specified factors, initial encounter

== ENCOUNTER 2022-04-27 11:39 | Outpatient (RCR) | payer MEDICARE, BC ==
[~2022-04-27 11:39] MED LIST changes: +MINERAL OIL/PETROLAT/GLYCERI 6OZ BTL ONE
== END 2022-04-30 ==
LOC: WCC 11:39
PROVIDERS: ATTEND Podiatrist Foot & Ankle Surgery
DX: E11.621 Type 2 diabetes mellitus with foot ulcer (principal); M86.172 Other acute osteomyelitis, left ankle and foot; L97.428 Non-pressure chronic ulcer of left heel and midfoot with other specified severity; L97.416 Non-pressure chronic ulcer of right heel and midfoot with bone involvement without evidence of necrosis; I73.89 Other specified peripheral vascular diseases; Z94.0 Kidney transplant status; N28.9 Disorder of kidney and ureter, unspecified; I10 Essential (primary) hypertension; D50.9 Iron deficiency anemia, unspecified; X58.XXXA Exposure to other specified factors, initial encounter; Z01.810 Encounter for preprocedural cardiovascular examination; Z01.811 Encounter for preprocedural respiratory examination
CPT/HCPCS: 36415; 82948

== ENCOUNTER 2022-05-28 14:37 | Outpatient (RCR) | payer BC, MEDICARE ==
[~2022-05-28 14:37] MED LIST changes: +CADEXOMER IODINE 30 GM TUBE ONE; -TRYPSIN/BALSAM PERU/CASTOR OIL ONE
== END 2022-05-31 ==
LOC: WCC 14:37
PROVIDERS: ATTEND Podiatrist Foot & Ankle Surgery
DX: E11.621 Type 2 diabetes mellitus with foot ulcer (principal); M86.172 Other acute osteomyelitis, left ankle and foot; L97.428 Non-pressure chronic ulcer of left heel and midfoot with other specified severity; L97.416 Non-pressure chronic ulcer of right heel and midfoot with bone involvement without evidence of necrosis; I73.89 Other specified peripheral vascular diseases; Z94.0 Kidney transplant status; N28.9 Disorder of kidney and ureter, unspecified; I10 Essential (primary) hypertension; D50.9 Iron deficiency anemia, unspecified; Z01.810 Encounter for preprocedural cardiovascular examination; Z01.811 Encounter for preprocedural respiratory examination; X58.XXXA Exposure to other specified factors, initial encounter
CPT/HCPCS: 87071; 87075; 87186; 87205

== ENCOUNTER 2022-06-29 08:26 | Outpatient (RCR) | payer MEDICARE ==
[~2022-06-29 08:26] MED LIST changes: -CADEXOMER IODINE 30 GM TUBE ONE; +LIDOCAINE VISC 2% SOLN 15 ML UDC ONE; -MINERAL OIL/PETROLAT/GLYCERI 6OZ BTL ONE
[2022-06-29] MEDS ORDERED: LIDOCAINE VISC 2% SOLN 15 ML UDC ONE (12:41)
== END 2022-06-30 ==
LOC: WCC 08:26
PROVIDERS: ATTEND Podiatrist Foot & Ankle Surgery
DX: E11.621 Type 2 diabetes mellitus with foot ulcer (principal); M86.172 Other acute osteomyelitis, left ankle and foot; L97.428 Non-pressure chronic ulcer of left heel and midfoot with other specified severity; D50.9 Iron deficiency anemia, unspecified; L97.416 Non-pressure chronic ulcer of right heel and midfoot with bone involvement without evidence of necrosis; I73.89 Other specified peripheral vascular diseases; N28.9 Disorder of kidney and ureter, unspecified; I10 Essential (primary) hypertension; M14.60 Charcot's joint, unspecified site; X58.XXXA Exposure to other specified factors, initial encounter; Z01.810 Encounter for preprocedural cardiovascular examination; Z01.811 Encounter for preprocedural respiratory examination; Z94.0 Kidney transplant status

== ENCOUNTER → 2022-08-31 | Outpatient (RCR) | payer MEDICARE ==
[~2022-08-31] MED LIST changes: -LIDOCAINE VISC 2% SOLN 15 ML UDC ONE; +MUPIROCIN 2% OINT 22 GM TUBE ONE
== END ==
LOC: WCC 08-10 07:56
PROVIDERS: ATTEND Podiatrist Foot & Ankle Surgery
DX: E11.621 Type 2 diabetes mellitus with foot ulcer (principal); L89.891 Pressure ulcer of other site, stage 1; M86.172 Other acute osteomyelitis, left ankle and foot; L97.428 Non-pressure chronic ulcer of left heel and midfoot with other specified severity; I73.89 Other specified peripheral vascular diseases; N28.9 Disorder of kidney and ureter, unspecified; Z94.0 Kidney transplant status; I10 Essential (primary) hypertension; D50.9 Iron deficiency anemia, unspecified; M14.60 Charcot's joint, unspecified site; X58.XXXA Exposure to other specified factors, initial encounter; Z01.810 Encounter for preprocedural cardiovascular examination; Z01.811 Encounter for preprocedural respiratory examination

== ENCOUNTER → 2022-09-28 | Outpatient (RCR) | payer MEDICARE ==
[~2022-09-28] MED LIST changes: -MUPIROCIN 2% OINT 22 GM TUBE ONE; +TRYPSIN/BALSAM PERU/CASTOR OIL ONE
== END ==
LOC: WCC 09-21 10:13
PROVIDERS: ATTEND Podiatrist Foot & Ankle Surgery
DX: T81.89XA Other complications of procedures, not elsewhere classified, initial encounter (principal); L89.891 Pressure ulcer of other site, stage 1; M86.172 Other acute osteomyelitis, left ankle and foot; E11.621 Type 2 diabetes mellitus with foot ulcer; L97.412 Non-pressure chronic ulcer of right heel and midfoot with fat layer exposed; L97.422 Non-pressure chronic ulcer of left heel and midfoot with fat layer exposed; I73.89 Other specified peripheral vascular diseases; N28.9 Disorder of kidney and ureter, unspecified; I10 Essential (primary) hypertension; D50.9 Iron deficiency anemia, unspecified; B96.89 Other specified bacterial agents as the cause of diseases classified elsewhere; M14.60 Charcot's joint, unspecified site; X58.XXXS Exposure to other specified factors, sequela; Z01.810 Encounter for preprocedural cardiovascular examination; Z01.811 Encounter for preprocedural respiratory examination; Z94.0 Kidney transplant status

== ENCOUNTER 2022-11-16 08:00 | Outpatient (RCR) | payer MEDICARE ==
[~2022-11-16 08:00] MED LIST changes: +MINERAL OIL/PETROLAT/GLYCERI 6OZ BTL ONE; -TRYPSIN/BALSAM PERU/CASTOR OIL ONE
== END 2022-11-28 ==
LOC: WCC 08:00
PROVIDERS: ATTEND Podiatrist Foot & Ankle Surgery
DX: T81.89XA Other complications of procedures, not elsewhere classified, initial encounter (principal); E11.621 Type 2 diabetes mellitus with foot ulcer; L97.412 Non-pressure chronic ulcer of right heel and midfoot with fat layer exposed; L97.422 Non-pressure chronic ulcer of left heel and midfoot with fat layer exposed

== ENCOUNTER 2022-12-21 07:56 | Outpatient (RCR) | payer MEDICARE ==
[~2022-12-21 07:56] MED LIST changes: +TRYPSIN/BALSAM PERU/CASTOR OIL ONE
[2022-12-21] MEDS ORDERED: MINERAL OIL/PETROLAT/GLYCERI 6OZ BTL ONE (13:25)
== END 2022-12-29 ==
LOC: WCC 07:56
PROVIDERS: ATTEND Podiatrist Foot & Ankle Surgery
DX: T81.89XA Other complications of procedures, not elsewhere classified, initial encounter (principal); E11.621 Type 2 diabetes mellitus with foot ulcer; L97.422 Non-pressure chronic ulcer of left heel and midfoot with fat layer exposed; L97.412 Non-pressure chronic ulcer of right heel and midfoot with fat layer exposed
CPT/HCPCS: 10140; 36415; 82948; 87071; 87075; 87186; 87205; 88173; 88300; 88305

== ENCOUNTER 2023-01-25 08:05 | Outpatient (RCR) | payer MEDICARE ==
[~2023-01-25 08:05] MED LIST changes: -MINERAL OIL/PETROLAT/GLYCERI 6OZ BTL ONE; -TRYPSIN/BALSAM PERU/CASTOR OIL ONE
== END 2023-01-28 ==
LOC: WCC 08:05
PROVIDERS: ATTEND Podiatrist Foot & Ankle Surgery
DX: E11.621 Type 2 diabetes mellitus with foot ulcer (principal); E11.622 Type 2 diabetes mellitus with other skin ulcer; L97.316 Non-pressure chronic ulcer of right ankle with bone involvement without evidence of necrosis; L97.422 Non-pressure chronic ulcer of left heel and midfoot with fat layer exposed; M14.671 Charcot's joint, right ankle and foot
CPT/HCPCS: 87071; 87075; 87186; 87205; 88304; 88311